=== PATIENT | male | born 1950 | race Caucasian/White ===

== ENCOUNTER 2023-05-15 09:39 | Inpatient (IN) | payer OTHER, SELFPAY ==
[2023-05-14] VITALS (29 sets, daily range): BP systolic 71–125; BP diastolic 38–87; BMI 25.5; BMI 28.5
[2023-05-14] MEDS: NORMOSOL-R 1000 IV (08:23)
--- NOTE | 2023-05-14 11:11 | W.IMMPOSTOP ---
Surgical Immed Post Op Note
-
Primary Surgeon: Hilton
Pre-op Diagnosis: BPH with severe bladder distension and urinary retention; bacterial prostatitis
Post-op Diagnosis: BPH with severe bladder distension and urinary retention; bacterial prostatitis
Procedure Performed: TURP
Anesthesia Type: gen
Specimen / Cultures: prostate chips
Estimated Blood Loss: 57 ml
Complications: hemodynamically unstable during case --> cardiology and hospitalist consultations in PACU; will send to ICU after PACU
Operative Findings: trilobar BPH with distended urinary bladder
[2023-05-14] MEDS: ADRENALIN 250 IV (11:13)
[2023-05-14] MEDS: ZOFRAN 4 MG IV (11:27)
[2023-05-14 11:28] LABS: Hematocrit 31.3 % (39.0-52.0); Hemoglobin 10.7 g/dL (13.0-18.0)
[2023-05-14 11:56] LABS: ALT (SGPT) 75 U/L (0-50); AST (SGOT) 125 U/L (17-59); Albumin 2.5 g/dl (3.5-5.0); Alkaline Phosphatase 108 U/L (38-126); Blood Urea Nitrogen 13 mg/dl (9-20); Calcium 7.5 mg/dl (8.4-10.2); Carbon Dioxide 14 mmol/L (22-30); Chloride 114 mmol/L (98-107); Estimated Creatinine Clearance 94 ml/min; Glucose 110 mg/dl (70-99); Sodium 140 mmol/L (135-145); Total Bilirubin 1.6 mg/dl (0.2-1.3); Total Protein 4.8 g/dl (6.3-8.2); eGFR > 60.00
--- NOTE | 2023-05-14 12:04 | CON.CAR ---
Addendum entered and electronically signed by Estiven Epps MD 05/14/23 12:59:
I saw and examined the patient.
The RETAIL DIRECTOR's note was reviewed and I agree with the note.
Comment: 73M who developed persistent hypotension during TURP. This did not resolve with epinephrine and IVF. Seems like shock.
- The differential diagnosis for shock is broad (distributive, cardiogenic, hypovolemic, obstructive, etc.)
- The patient required early and significant amounts of epinephrine & IVF despite a normal heart. I will update LVEF to be sure my assumption of normal heart is accurate. PPM checked and is normal
- The clinical picture is not consistent with cardiogenic shock. (I can explain the CXR due to the acute volume challenge of IVF)
- I would search for the cause of his shock - septic, hypovolemic, obstructive/PE - and not assume it is cardiogenic
Original Note:
Consultation
Consultation Request
Date/Time Consultation Requested: 05/14/23 1107
Date/Time Consultation Performed: 05/14/23 1206
Requesting Provider: Dr. Canela
Performing Provider: Amara JASON for Dr. Epps
Reason for Consultation: CHF
Medical History
-
Chief Complaint: BPH s/p TURP
History of Present Illness:
73 y/o male with CAD with hx stenting, permanent AFIB on Eliquis (held), DM, HFpEF, anemia, pacemaker with BPH who is now s/p TURP. Hypotension noted and he is now requiring epi drip. Wee are consulted to evaluate for cardiac cause. He denies any CP
or SOB, and is in no distress at the time of my assessment.
Past Medical History
Past Medical History: Arrhythmias (AFIB), CAD, CHF and Other (pacemaker)
Social History
Tobacco: Non-Smoker
Family History
Family History: Reviewed & Not Pertinent
Allergies / Home Medications
Allergy/AdvReac Type Severity Reaction Status Date / Time
No Known Allergies Allergy Verified 05/14/23 08:10
Medication Instructions Recorded Confirmed Type
apixaban 5 mg tablet (Eliquis) 5 mg PO BID Blood Clot 08/30/21 05/14/23 History
Prevention/Tx
diltiazem HCl 120 mg tablet 120 mg PO DAILY Heart 08/30/21 05/14/23 History
(Cardizem) Disease/Condition
cefdinir 300 mg capsule 300 mg PO BID #14 caps 04/29/23 05/14/23 Rx
omega 5-ett-gnq-fish oil 1,200 mg 1 cap PO DAILY 05/09/23 05/14/23 History
(144 mg-216 mg) capsule (Fish Oil)
finasteride 5 mg tablet 5 mg PO DAILY #90 tabs 05/14/23 Rx
tamsulosin 0.4 mg capsule 0.4 mg PO HS #90 caps 05/14/23 Rx
Review of Systems
-
History Source: Patient and Other (and nursing and chart)
All other systems: Negative unless noted (patient denies any symptoms, recovering from anesthesia)
Physical Exam
Vital Signs
Temp Pulse Resp BP Pulse Ox
96.8 F L 69 14 115/55 98
05/14/23 11:03 05/14/23 11:35 05/14/23 11:35 05/14/23 11:35 05/14/23 11:35
Lab Results
05/14/23 11:20
05/14/23 11:20
Physical Exam
General: Well Developed, Well Nourished and No Apparent Distress
HEENT: Normocephalic and Anicteric
Respiratory: Crackles (mild bases)
Cardiac: Regular Rhythm
Breast: Deferred by me
GI: Soft and Non Distended
Musculoskeletal: No Edema
Neuro: Awake, Alert and Other (recovering from anesthesia, but wakes up and follows commands and answers simple questions)
Psych: Calm
Impression / Plan
-
BPH, severe bladder distension and retention, bacterial prostatitis:
-s/p TURP 05/14/23; per urology
-hypotension as below
Hypotension:
-post-op
-requiring epi drip, which requires intensive monitoring for toxicity
-check echo (follow-up study)
-recommend evaluation for non-cardiac causes
Hypokalemia:
-being replaced, follow closely
Pacemaker:
-device checked and functioning appropriately per device rep, 5 months on battery- monitor closely as OP
Permanent AFIB:
-stable, rate-controlled
-on OAC as OP, currently on hold
CAD with history of stenting:
-stable without CP
HFpEF: chronic, stable
-recent echo as below- follow-up study today
Data Reviewed
-
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
Radiology: Report Reviewed by me (CXR: Low lung volumes. Pulmonary vascularity at least top normal. No pneumothorax.)
Medical Tests (Nuc Med, Echo etc): Report Reviewed by me (echo 02/07/23: Left ventricular ejection fraction is 65-70%. Normal regional wall motion. Increased right ventricular wall thickness. Normal right ventricular size and function. Moderately
dilated left atrium. Moderately dilated right atrium. Mild aortic regurgitation. Mild to moderate TR)
Labs: Labs Reviewed by me
[2023-05-14 12:18] LABS: Troponin I 0.017 ng/ml
[2023-05-14] MEDS: KCL 270 MEQ IV (12:30)
--- NOTE | 2023-05-14 12:36 | PTCARENOTE ---
Addendum [id number] Rec'd patient to PACU BP hypotensive, left wrist A-line placed in PACU by anesthesia and epi drip started as ordered. Evaluated by cardiology in PACU, bedside EKG/labs/CXR all obtained in PACU as ordered. Patient + dry heaves with
small amount secretions suctioned orally via yankeur, improved with zofran administration. Patient was transferred to ICU, Bp remains stable.
[2023-05-14 13:05] LABS: NT-proBNP 1380 pg/ml
--- NOTE | 2023-05-14 13:21 | CON.INTV ---
Addendum entered and electronically signed by Isak Lopez MD 05/14/23 14:01:
In further discussion with the patient, patient has chronic diarrhea.
Yesterday he had 5-6 bowel movements. Today he already has 2 bowel movement.
With non-anion gap metabolic acidosis and hypokalemia, suspect patient is volume depleted.
Will replete potassium and start bicarbonate drip at 125 cc/h.
Will continue to monitor closely.
Magnesium is pending.
Hold all antihypertensive.
Original Note:
Consultation
Consultation Request
Date/Time Consultation Requested: 05/14/2023
Date/Time Consultation Performed: 05/14/2023
Requesting Provider: Dr. Canela
Performing Provider: Dr. Isak Juarez
Reason for Consultation: Hypotension/hypokalemia
Medical History
-
History of Present Illness:
73-year-old man was admitted for TURP, developed persistent hypotension. Required fluid resuscitation as well as some low-dose epinephrine.
Upon arrival to the ICU, patient retching, nauseous. Alert and cooperative. Following commands. Denies any chest pain or abdominal pain.
Laboratory testing with acidosis and significant hypokalemia.
Cardiology evaluated the patient, pacemaker looked okay. Repeat echocardiogram will be performed. Does not believe this cardiogenic shock.
Chest x-ray no acute abnormalities.
Patient was found in his usual state of health prior admission earlier today.
Hemoglobin is a stable compared to prior.
There is reports of significant blood loss in the operating room.
CBI currently appears clear.
EKG: Paced with premature ventricular complexes.
Past Medical History
Past Medical History: Other
Social History
Tobacco: Non-smoker
Alcohol: None
Drug: None
Family History
Family History: Reviewed & Not Pertinent
Allergies / Home Medications
Allergies
Allergy/AdvReac Type Severity Reaction Status Date / Time
No Known Allergies Allergy Verified 05/14/23 08:10
Home Medications
Medication Instructions Recorded Confirmed Last Taken Type
apixaban 5 mg tablet (Eliquis) 5 mg PO BID Blood Clot 08/30/21 05/14/23 05/11/23 History
Prevention/Tx
diltiazem HCl 120 mg tablet 120 mg PO DAILY Heart 08/30/21 05/14/23 05/13/23 08:00 History
(Cardizem) Disease/Condition
cefdinir 300 mg capsule 300 mg PO BID #14 caps 04/29/23 05/14/23 05/13/23 20:00 Rx
omega 1-bon-qzo-fish oil 1,200 mg 1 cap PO DAILY 05/09/23 05/14/23 05/11/23 History
(144 mg-216 mg) capsule (Fish Oil)
finasteride 5 mg tablet 5 mg PO DAILY #90 tabs 05/14/23 Unknown Rx
tamsulosin 0.4 mg capsule 0.4 mg PO HS #90 caps 05/14/23 Unknown Rx
Review of Systems
-
History Source: Patient
All other systems: Negative unless noted
Vitals / Labs / Diagnostic Testing
Vital Signs
Temp Pulse Resp BP Pulse Ox
97.3 F 69 14 115/55 98
05/14/23 11:43 05/14/23 11:35 05/14/23 11:35 05/14/23 11:35 05/14/23 11:35
Diagnostic Testing:
Physical Exam
-
HEENT: Normocephalic
Cardiovascular: S1/S2 and Rub (n)
Respiratory: Clear and Non-Labored Respirations
GI: Soft and Non Distended
Neurology: Awake, Alert and AO x 3
Skin: Other ( no cyanosis)
General: Respiratory Distress (Nauseous/retching)
Assessment
-
Shock: Undifferentiated.
Hypovolemic possibility
So far no clear etiology.
Neg trops.
Status post TURP
Anemia-stable since prior admission in March
Non-anion gap metabolic acidosis
Hypokalemia
Abnormal LFT ? etiology
Conditions present prior admission:
BPH
Coronary artery disease status post stents
History of permanent pacemaker
Chronic diarrhea x 2 years
Paroxysmal atrial fibrillation on Eliquis/Cardizem
History of cholecystectomy
History of recurrent pancreatitis
Complex lobulated cyst with calcification arising from the left kidney. 5.5 x 5.5 cm
Left hemidiaphragm elevation
Postinflammatory scarring of the lower lobes on CT abdomen pelvis 04/27/2023
Assessment and plan:
Postoperative shock: On low-dose epinephrine. Status post IV fluid resuscitation in the emergency room.
Patient did receive ceftriaxone: No documented allergies to beta-lactam's. There is no rash.
-
Hemoglobin is stable compared to admission.
Cardiology evaluated the patient: No evidence for cardiogenic etiology.
Chest x-ray is clear.
Obtain lactic level
Hold antihypertensive
Check lactic acid
-
Will correct potassium first and then start bicarbonate drip at 125 cc an hour-KCl ongoing.
Repeat labs at 3 PM.
Repeat H&H at 3 PM
Wait for echocardiogram to evaluate for RV-patient is on anticoagulation in the outpatient setting until this procedure.
-
Nausea/vomiting: Continue Zofran as needed
Given hypokalemia, will try to limit QT prolonging agents.
-
Check cortisol level
? Adrenal mass on the left.
-
Hold anticoagulation for now until H&H is established stable.
SCDs for DVT prophylaxis.
Discussed with cardiology and primary team.
-
-
Critical care statement: A total of 38 minutes of critical care time was provided for this patient today. This includes management of unstable vital signs, evaluation of the patient at bedside, reviewing the patient's pertinent medical records
including ventilator settings, arterial blood gases, radiographs, microbiology, laboratory evaluations and discussion with primary team, critical care nursing, and respiratory therapy.
[2023-05-14 14:05] LABS: Magnesium 1.7 mg/dl (1.6-2.3)
--- NOTE | 2023-05-14 15:19 | HPS.HSE ---
Addendum entered and electronically signed by Ross Jung MD 07/10/23 16:54:
Physical Exam
-
HEENT: Normocephalic
Cardiovascular: S1/S2 and Rub (n)
Respiratory: Clear and Non-Labored Respirations
GI: Soft and Non Distended
Neurology: Awake, Alert and AO x 3
Skin: Other ( no cyanosis)
General: Respiratory Distress (Nauseous/retching)
Addendum entered and electronically signed by Ross Jung MD 07/08/23 16:41:
Allergies
Allergy/AdvReac Type Severity Reaction Status Date / Time
No Known Allergies Allergy Verified 05/14/23 08:10
Home Medications
apixaban 5 mg tablet (Eliquis) 5 mg PO BID Blood Clot Prevention/Tx 08/30/21
diltiazem HCl 120 mg tablet (Cardizem) 120 mg PO DAILY Heart Disease/Condition 08/30/21
cefdinir 300 mg capsule 300 mg PO BID #14 caps 04/29/23
omega 6-dyt-ywc-fish oil 1,200 mg (144 mg-216 mg) capsule (Fish Oil) 1 cap PO DAILY Supplement 05/09/23
finasteride 5 mg tablet 5 mg PO DAILY #90 tabs 05/14/23
tamsulosin 0.4 mg capsule 0.4 mg PO HS #90 caps 05/14/23
ferrous sulfate 325 mg (65 mg iron) tablet (FeroSul) 325 mg PO DAILY #30 tabs 05/21/23
Original Note:
Family Physician
-
Family Physician: NOT KNOW UNKNOWN - PT DOES
Chief Complaint
-
Hypotension
History of Present Illness
73-year-old male admitted for TURP and subsequently developed hypotension requiring vasopressors. Of note patient has had frequent bouts of diarrhea with 5-6 bowel movements yesterday and 2 bowel movements today. Patient required norepinephrine to
maintain blood pressure postop. No overnight events intraoperatively, although required pressors throughout the procedure. Possible significant blood loss in the OR. CBI currently prescribed. Patient lethargic although mental status intact.
Labs notable for acidosis, and hypokalemia. Cardiology evaluated patient, no events on pacemaker.
Medical History
Past Medical History
Past Medical History: Reports Other (as per HPI)
Past Surgical History: Reports Other (N/A)
Social History
Tobacco: Non-smoker
Alcohol: None
Drug: None
Family History
Family History: Not pertinent
Allergies / Home Medications
Allergies reflects when Allergies were last updated in [facility].
Home Medications with original date entered in [facility]
Allergy/Medication List:
Allergies
Allergy/AdvReac Type Severity Reaction Status Date / Time
No Known Allergies Allergy Verified 04/27/23 07:16
Home Medications
apixaban 5 mg tablet (Eliquis) 5 mg PO BID 08/30/21
aspirin 81 mg tablet,delayed release 81 mg PO DAILY 08/30/21
cholecalciferol (vitamin D3) 50 mcg (2,000 unit) tablet 2,000 units PO DAILY 08/30/21
cyanocobalamin (vitamin B-12) 2,500 mcg tablet 2,500 mcg PO DAILY 08/30/21
diltiazem HCl 120 mg tablet (Cardizem) 120 mg PO DAILY 08/30/21
furosemide 20 mg tablet 20 mg PO DAILY 08/30/21
rosuvastatin 5 mg tablet 5 mg PO QPM 08/30/21
hydrocodone 5 mg-acetaminophen 325 mg tablet 1 - 2 tab PO Q4HPRN PRN Mod-severe pain 7 days #30 tabs 09/05/21
cefdinir 300 mg capsule 300 mg PO BID #13 caps 04/22/23
rivaroxaban 20 mg tablet (Xarelto) mg 04/27/23
sildenafil 100 mg tablet 100 mg PO PRN PRN ED 04/27/23
vibegron 75 mg tablet (Gemtesa) 75 mg PO DAILY overactive bladder 04/27/23
Review of Systems
-
A 12 point ROS was completed and negative except as noted: Yes
Physical Exam
Vital Signs
Vital Signs
Temp Pulse Resp BP Pulse Ox
97.3 F 60 20 119/60 99
05/14/23 11:43 05/14/23 14:45 05/14/23 14:45 05/14/23 14:00 05/14/23 14:45
Physical Exam
General: Other (.)
Laboratory Results
-
Laboratory Results
Total Bilirubin 1.6 mg/dl (0.2-1.3) H 05/14/23 11:20
AST 125 U/L (17-59) H 05/14/23 11:20
ALT 75 U/L (0-50) H 05/14/23 11:20
Alkaline Phosphatase 108 U/L (38-126) 05/14/23 11:20
Troponin I 0.017 ng/ml 05/14/23 11:20
Data Reviewed
-
Diagnostic Radiology: Image Personally Visualized and interpreted and Report Reviewed by me
Lab Data: Labs Reviewed by me
Impression/Plan
-
IMPRESSION:
73-year-old male presents status post TURP found to be mildly hypoxic, hypertensive postoperatively. Requiring low-dose pressors. Requiring low-dose pressors.
PLAN:
#Shock, undifferentiated
� Unclear if hypovolemic due to volume blood loss, less likely cardiac or infectious
� Can continue antibiotics as per urology
� Volume resuscitation, bicarbonate bolus now
� Wean pressors as tolerated
� MAP goal greater than 65
� Trend CBC, maintain hemoglobin goal greater than 7
� Follow-up lactate
� Hold antihypertensives
� Follow-up echo
#Nausea/vomiting
� Zofran
#Hypokalemia
Monitor and replete
#Transaminitis
� may be related to shock
-ctm with resuscitation
#Renal mass on left
-Cortisol level
#Permanent atrial fibrillation
� Hold Eliquis
� Continue Cardizem
#CAD
� Status post stenting
� Stable without chest pain
#HFpEF, chronic
� Repeat echo
#BPH
� Hold tamsulosin for now
#DVT prophylaxis
SCDs
[2023-05-14] MEDS: SODIUM BICARBONATE 1150 MEQ IV (16:50)
[2023-05-14 17:52] LABS: Hematocrit 30.7 % (39.0-52.0); Hemoglobin 10.3 g/dL (13.0-18.0); Mean Corp Hgb Conc. 33.6 g/dL (33.0-37.0); Mean Corpuscular Hgb 32.2 pg (27.0-31.0); Mean Corpuscular Volume 95.9 fL (80.0-94.0); Mean Platelet Volume 10.7 fL (7.4-10.4); Platelet Count 160 10^3/uL (130-400); Red Cell Dist. Width 14.6 % (11.5-14.5)
[2023-05-14 18:02] LABS: Blood Urea Nitrogen 16 mg/dl (9-20); Carbon Dioxide 14 mmol/L (22-30); Chloride 112 mmol/L (98-107); Estimated Creatinine Clearance 94 ml/min; Glucose 248 mg/dl (70-99); Magnesium 1.7 mg/dl (1.6-2.3); Potassium 3.7 mmol/L (3.5-5.1); Sodium 138 mmol/L (135-145); eGFR > 60.00
[2023-05-14 18:30] LABS: Cortisol, Random 31.9 ug/dl
--- NOTE | 2023-05-14 18:45 | PTCARENOTE ---
Patient received from PACU at 1200 with assessment as noted. Continues alert and oriented with flat but cooperative affect. 100% V-paced on monitor. Hypothermic upon arrival with a rectal temp of 93.3. aware. Ismael hugger placed for 1.5 hr
and d/c'd for an oral temp of 97.5. Epi gtt titrated between 1-3 mcg to maintain MAP's >65. Lungs with scattered fine crackles 1/3 up bilaterally. Sao2 97% on 2lnc. Retched several times since arrival with no output. Food held but able to tolerate
sips of water. No bowel movement since arrival. CBI with punch colored output with no clots noted. Family into visit and updated to patient condition.
[2023-05-14] MEDS: OMNICEF 300 MG PO (19:13)
[2023-05-14 20:45] LABS: Troponin I 0.119 ng/ml
--- NOTE | 2023-05-14 21:21 | PTCARENOTE ---
Assumed care of patient from previous RN at shift change. Patient alert and oriented. ZUNI. Patient states hx of neuropathy in b/l hands and feet. Glucose 248 on lab work. Orders for A1c, bedside glucose monitoring and sliding scale coverage placed.
100% vpaced on tele monitor. POX 97-99% on 2L nc. Fine crackles auscultated in b/l bases. Denies dyspnea. +BS in all quadrants. No BMs. Occasional nausea. Keeping patient on clears. CBI infusing wide open. Output punch colored. Vitals stable. Epi
gtt infusing at 3 mcg/min for MAP >65. Left radial a-line leveled and zeroed. Call triana within reach.
[2023-05-14 21:50] LABS: Glucose - Point of Care 244 mg/dl (70-99)
[2023-05-15] VITALS (34 sets, daily range): BP systolic 69–118; BP diastolic 41–69; BMI 28.9
--- NOTE | 2023-05-15 00:30 | PTCARENOTE ---
Systems reviewed at 0000, no changes. CBI rate decreased. Urine output blood tinged.
--- NOTE | 2023-05-15 05:17 | PTCARENOTE ---
Epi gtt turned off at 0500. Vitals stable. CBI irrigated x2 overnight. Small amount of blood clots obtained. CBI running wide open at current time.
[2023-05-15 06:04] LABS: % Immature Granulocytes 0.6 % (0-0.5); % Lymphocytes 3.3 % (20.5-51.1); % Monocytes 6.9 % (1.7-9.3); % Neutrophils 89.2 % (42.2-75.2); Absolute Immature Granulocytes 0.1 10^3/uL (0-0.05); Absolute Lymphocytes 0.3 10^3/uL (1.2-3.4); Absolute Monocytes 0.7 10^3/uL (0.1-0.6); Absolute Neutrophils 8.8 10^3/uL (1.4-6.5); Hematocrit 23.8 % (39.0-52.0); Mean Corp Hgb Conc. 34.5 g/dL (33.0-37.0); Mean Corpuscular Hgb 31.4 pg (27.0-31.0); Mean Corpuscular Volume 91.2 fL (80.0-94.0); Mean Platelet Volume 11.1 fL (7.4-10.4); Nucleated Red Blood Cells % 0 % (-); Platelet Count 125 10^3/uL (130-400); Red Blood Cell Count 2.61 10^6/uL (4.70-6.10); Red Cell Dist. Width 14.6 % (11.5-14.5); White Blood Cell Count 9.9 10^3/uL (4.8-10.8)
[2023-05-15 06:07] LABS: ALT (SGPT) 61 U/L (0-50); AST (SGOT) 62 U/L (17-59); Albumin 2.5 g/dl (3.5-5.0); Alkaline Phosphatase 57 U/L (38-126); Blood Urea Nitrogen 17 mg/dl (9-20); Calcium 7.9 mg/dl (8.4-10.2); Carbon Dioxide 16 mmol/L (22-30); Chloride 107 mmol/L (98-107); Estimated Creatinine Clearance 94 ml/min; Glucose 209 mg/dl (70-99); Potassium 4.7 mmol/L (3.5-5.1); Sodium 135 mmol/L (135-145); Total Bilirubin 1.1 mg/dl (0.2-1.3); Total Protein 4.9 g/dl (6.3-8.2); eGFR > 60.00
[2023-05-15 06:15] LABS: Hemoglobin 8.2 g/dL (13.0-18.0)
--- NOTE | 2023-05-15 06:24 | W.PN.URO.CBU ---
Today's Communication / Plan
-
maintain CBI
medical management team's effort are appreciated
Assessment / Plan
-
clinically improving
Diagnosis
-
Date of Service: May 15, 2023
-
Patient Diagnosis:
Prostate Enlargement with Sever Bladder Distension and UTI\\
s/p TURP 05/14 -- intraoperative hypotension, apparently due to fluid-electrolyte imbalances
Subjective
-
feels better
eager for breakfast
Objective
-
Vital Signs
Temp Pulse Resp BP Pulse Ox
98.0 F 60 16 108/54 100
05/15/23 03:35 05/15/23 05:00 05/15/23 05:00 05/15/23 04:00 05/15/23 05:00
Intake and Output
05/13/23 05/14/23 05/15/23
06:59 06:59 06:59
Intake Total 2880.8 / 2880.8
Output Total 2550 / 2550
Balance 330.8 / 330.8
Intake:
Oral fluids 1440 / 1440
IV fluids (Total) 1440.8 / 1440.8
D5w 1,000 ml @ 125 mls/hr IV . 1000 / 1000
Q9H12M CHUY with Sodium
Bicarbonate 150 Meq Rx#:
[id number]
Epi 150.8 / 150.8
K-rider 270.0 / 270.0
Normosol 20 / 20
Output:
True Urine Output from CBI 2550 / 2550
Laboratory Results
05/15/23 05:25
05/15/23 05:25
required hand-irrigation of Deras overnight
Physical Exam
-
General - well developed, well nourished, no acute distress
Abdomen - soft, non-tender, positive bowel sounds, no distention
Genitalia - hand-irrigated -- few old clots extracted; CBI outflow is pink
[2023-05-15 06:42] LABS: Magnesium 1.7 mg/dl (1.6-2.3)
[2023-05-15 07:44] LABS: Glucose - Point of Care 144 mg/dl (70-99)
[2023-05-15] MEDS: OMNICEF 300 MG PO ×2 (08:06→19:28)
[2023-05-15 10:37] LABS: Glycohemoglobin (HgbA1c) 4.8 % (4.0-5.6)
[2023-05-15] MEDS: LR 500 IV ×2 (11:02→19:27)
[2023-05-15 11:54] LABS: Glucose - Point of Care 113 mg/dl (70-99)
--- NOTE | 2023-05-15 12:35 | W.PN.CD ---
Today's Communication / Plan
-
Patient is off pressors. Currently hemodynamically stable.
Keep I's and O's positive or even. Monitor
Diarrhea. Patient has issues with chronic diarrhea and weight loss and felt he had increased diarrhea over the last month. Continue to follow-up with GI
Postoperative care as directed by urology.
Monitor hemoglobin.
Impression / Plan
-
BPH, severe bladder distension and retention, bacterial prostatitis:
-s/p TURP 05/14/23; per urology
Hypotension:
-post-op. Initially given epi. Patient ultimately suspected to be volume depleted. Chronic diarrhea with increase over the last month then surgery and some blood loss.
Echocardiogram with hyperdynamic left ventricular function. Appears patient responded to volume.
-Stable off pressors.
-Continue to replace volume if patient has significant diarrhea output.
Postoperative anemia. Hemoglobin down to 8.2 some of this may be related to dilution and volume resuscitation. l. Starting hemoglobin 10.7. Continue to monitor.
Pacemaker:
-device checked and functioning appropriately per device rep, 5 months on battery- monitor closely as OP
Permanent AFIB:
-stable, rate-controlled
-Anticoagulation on hold due to recent surgery. Monitor hemoglobin eventual restart of anticoagulation when safe from a postoperative standpoint
CAD with history of stenting:
-stable without CP
HFpEF: chronic, stable
Physical Exam
Vital Signs/Labs
Vital Signs
Temp Pulse Resp BP Pulse Ox
97.9 F 60 13 97/61 96
05/15/23 11:27 05/15/23 11:30 05/15/23 11:30 05/15/23 11:00 05/15/23 12:00
05/14/23 05/15/23 05/16/23
06:59 06:59 06:59
Actual Weight 78.7 kg
05/15/23 05:25
05/15/23 05:25
Magnesium 1.7 mg/dl (1.6-2.3) 05/15/23 05:25
05/14/23
11:20
[id number] Pept 1380
LAB Results
05/14/23 05/14/23 05/14/23
11:20 12:15 20:00
Troponin I 0.017 Cancelled 0.119 H*
05/15/23
05:25
Troponin I 0.250 H*
Physical Exam
Constitutional: No acute distress
Cardiovascular: Rhythm & rate is regular
Respiratory: Respiratory effort normal
GI: Soft
Neuro/Psych: Alert
Data Reviewed
-
Date of Service: May 15, 2023
Medical Decision Making: Reviewed Test Results
Echo: Report Reviewed by me
Medical Tests (PFT, Pathology etc): Report Reviewed by me
Labs: Labs Reviewed by me
--- NOTE | 2023-05-15 12:56 | CM ---
Addendum entered by Praveen Thompson 05/15/23 13:27:
Per spouse, pt has a scooter and uses as needed.
Original Note:
CM following re: discharge planning.
Discussed in rounds, reviewed pt's chart, met with pt. pt's spouse and stepson at bedside. Pt is upgraded to inpatient level of carte. IMM reviewed, placed on chart, pt has a copy.
Pt is a 73 year old male, admitted with primary dx of BPH, severe bladder distension and retention, bacterial prostatitis, s/p TURP 05/14/23; per urology.
Pt reports he was born and grew up in [place], emig[place] [facility] with family 47 years ago and resided in [facility]. pt reports he first spouse, had 3 children and they : youngest son in [place] in very young age, son
from [place] 5 years ago at the age of 45 and daughter from [place] 4 years ago. Pt reports his sister and brother from [place] in their 60th. Emotional support offered and provided. Pt went to tears, shows me pictures of his children, their graves. Pt
reports that 7 years ago he a women who was born in [place] and grew up in [place] and she and her 23 year old son lives with the pt in an apartment, 1st floor, 1 steps to enter. Pt described himself as independent in all areas [employer], uses a
cane as needed. No VN or SNF history. 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 Pt expressed his desire to return back home at discharge with family support.
PCP: Dr. Avalos
Pharmacy: [facility].
D/c plan: home with anticipated no needs. Family to transport at discharge.
CM will follow with discharge plan updates as hospitalization progresses
--- NOTE | 2023-05-15 13:18 | W.PN.INTV ---
Today's Communication / Plan
Recommendations
Discontinue epinephrine
Discontinue arterial line
Repeat labs later
LR 500 bolus
Increase activity as able
Advance diet
Hold antihypertensives
Assessment
-
Shock: Undifferentiated.
Hypovolemic possibility
So far no clear etiology.
Neg trops.
Status post TURP
Anemia-stable since prior admission in March
Non-anion gap metabolic acidosis
Hypokalemia
Abnormal LFT ? etiology
Conditions present prior admission:
BPH
Coronary artery disease status post stents
History of permanent pacemaker
Chronic diarrhea x 2 years
Paroxysmal atrial fibrillation on Eliquis/Cardizem
History of cholecystectomy
History of recurrent pancreatitis
Complex lobulated cyst with calcification arising from the left kidney. 5.5 x 5.5 cm
Left hemidiaphragm elevation
Postinflammatory scarring of the lower lobes on CT abdomen pelvis 04/27/2023
Assessment and plan:
Postoperative shock: On low-dose epinephrine.
Patient did receive ceftriaxone: No documented allergies to beta-lactam's. There is no rash.
Patient did receive dexamethasone in the operating room for nausea.
Normal random cortisol
Troponin leak noted. Cardiology evaluated the patient. Suspect noncardiac in etiology.
-
He is clinically improved.
Suspect shock was related to volume depletion, has chronic diarrhea, acute blood loss during procedure hemoglobin dropped 2 g anesthesia.
Received IV fluids rotation with improvement
Epinephrine discontinued 05/15/2023 per
Discontinue arterial line
Continue to observe closely
Continues to have nongap metabolic acidosis: Suspect continues to be dehydrated. Echocardiogram showed underfilled left ventricle.
Will give additional 500 mL bolus of LR.
Encourage oral intake.
Repeat laboratories later.
Out of bed if possible.
-
Will hold antihypertensive for now.
-
Hopefully can discontinue CBI
On antibiotics per urology
-
Hypokalemia resolved.
Repeat BMP later today.
-
? Adrenal mass on the left. Follow with urology.
-
Hold anticoagulation for now until H&H is established stable. Defer to primary team.
SCDs for DVT prophylaxis.
Discussed with cardiology and primary team.
-
-
Critical care statement: A total of 31 minutes of critical care time was provided for this patient today. This includes management of unstable vital signs, evaluation of the patient at bedside, reviewing the patient's pertinent medical records
including ventilator settings, arterial blood gases, radiographs, microbiology, laboratory evaluations and discussion with primary team, critical care nursing, and respiratory therapy.
Subjective Dataa
Subjective Data
Date of Service:
Date of Service: May 15, 2023
Chief Complaint: Smudger Follow Up (Shock-)
Subjective:
Patient is clinically improved.
Hemodynamics are better
Denies abdominal pain.
Nausea vomiting resolved
Tolerating diet this morning.
Review of Systems
General: Fever (n)
Cardiopulmonary: Dyspnea (n), Cough (n) and Sputum Production (n)
GI: Abdominal Pain (n), Nausea (n) and Vomiting (n)
Neuro: Headache (n)
Objective Data
Data Reviewed
Vital Signs / I&O / Oxygen:
Vital Signs
Temp Pulse Resp BP Pulse Ox
97.9 F 60 13 97/61 96
05/15/23 11:27 05/15/23 11:30 05/15/23 11:30 05/15/23 11:00 05/15/23 12:00
Intake and Output
05/14/23 05/15/23 05/16/23
06:59 06:59 06:59
Intake Total 2880.8 / 2880.8 987.6 / 987.6
Output Total 5500 / 5500 1200 / 1200
Balance -2619.2 / -2619.2 -212.4 / -212.4
SaO2 96
Nasal Cannula flow liters per 2
minute
Physical Exam
General: Respiratory Distress (n) and Comfortable
HEENT: Normocephalic
Cardiovascular: S1-S2 and Regular Rhythm
Respiratory: Clear and Non-Labored Respirations
GI: Soft and Non Distended
Neurology: Awake and Alert
Skin: Warm
Labs/Micro/Reports
Lab Data
05/15/23 05:25
05/15/23 05:25
--- NOTE | 2023-05-15 15:23 | W.PN.HOSP.TC ---
Today's Communication/Plan
-
LR bolus
Off pressors since 9am, hopeful to maintain off indefinitely; Maintain MAP>65
Cont abx
Assessment / Plan
Assessment / Plan
Physical Exam
General: Respiratory Distress (n) and Comfortable
HEENT: Normocephalic
Cardiovascular: S1-S2 and Regular Rhythm
Respiratory: Clear and Non-Labored Respirations
GI: Soft and Non Distended
: CBI
Neurology: Awake and Alert
Skin: Warm
73-year-old male presents status post TURP found to be mildly hypoxic, hypertensive postoperatively.� Requiring low-dose pressors.� Requiring low-dose pressors.
PLAN:
#Shock, undifferentiated
-favor hypovolemic due to volume blood loss, diarrhea, NPO
� Can continue antibiotics as per urology
� Volume resuscitation, LR bolus today
-OFF pressors this morning
� MAP goal greater than 65
� Trend CBC, maintain hemoglobin goal greater than 7
� Hold antihypertensives
� Follow-up echo: hyperdynamic, low filling pressures
#Acute Blood Anemia
-monitor
#NAGMA
-2/2 to diarrhea
-s/p bicarb
-volume resuscitation
#Diarrhea
chronic
can see gi outpatient
#Nausea/vomiting
� Zofran
#Hypokalemia
Monitor and replete
#TURP 05/14
-CBI
#Transaminitis
� may be related to shock
-ctm with resuscitation
#Renal mass on left
-Cortisol level
#Permanent atrial fibrillation
� Hold Eliquis
� Continue Cardizem
#CAD
� Status post stenting
� Stable without chest pain
#HFpEF, chronic
� Repeat echo
#BPH
� Hold tamsulosin for now
#DVT prophylaxis
SCDs
Total time spent on today's encounter was 55 minutes which included time spent in counseling the patient/family regarding diagnosis and treatment plan as listed above, goals of care, and symptom management. Case was discussed with nursing staff,
specialists, and care coordinators/case management. All labs and imaging personally reviewed by me. Remainder the time spent in detailed review of previous records, lab data, imaging, and other medical provider documentation.
Anticipated Discharge: > 48 hours
Subjective/Interval History
-
Date of Service: May 15, 2023
off pressors since 9 am
Objective Data
-
Labs:
Laboratory Results
05/15/23 05/15/23
05:25 15:00
WBC 9.9
Hgb 8.2 L D
Hct 23.8 L
Plt Count 125 L D
Sodium 135 Pending
Potassium 4.7 D Pending
Chloride 107 Pending
Carbon Dioxide 16 L Pending
BUN 17 Pending
Creatinine 0.6 L Pending
Glucose 209 H Pending
Calcium 7.9 L Pending
Total Bilirubin 1.1
AST 62 H
ALT 61 H
Alkaline Phosphatase 57
Vital Signs:
Vital Signs
Temp Pulse Resp BP Pulse Ox
97.9 F 60 13 97/61 96
05/15/23 11:27 05/15/23 11:30 05/15/23 11:30 05/15/23 11:00 05/15/23 12:00
I&O
05/14/23 05/15/23 05/16/23
06:59 06:59 06:59
Intake Total 2880.8 / 2880.8 1467.6 / 1467.6
Output Total 5500 / 5500 1600 / 1600
Balance -2619.2 / -2619.2 -132.4 / -132.4
Review of Systems
-
History Source: Patient
All other systems: Not reviewed unless documented
Data Reviewed
-
CT Scan: Image personally visualized and interpreted and Report Reviewed by me
Labs: Labs Reviewed by me
[2023-05-15 15:56] LABS: Blood Urea Nitrogen 15 mg/dl (9-20); Calcium 8.2 mg/dl (8.4-10.2); Carbon Dioxide 23 mmol/L (22-30); Chloride 111 mmol/L (98-107); Estimated Creatinine Clearance 81 ml/min; Glucose 74 mg/dl (70-99); Magnesium 1.7 mg/dl (1.6-2.3); Potassium 4.2 mmol/L (3.5-5.1); Sodium 134 mmol/L (135-145); eGFR > 60.00
--- NOTE | 2023-05-15 17:09 | PTCARENOTE ---
Patient received in AM with assessment as noted. Continues alert, oriented and pleasant. Flat but cooperative affect. CBI has required hand irrigation several times today with minimal clots noted. aware. CBI infusion running wide open
through most of the day and was slowed down slightly to a very fast drip at 1620 with no need to irrigate since. Output pale pink in the AM and mostly clear in the afternoon. V-paced on monitor. Afebrile. Epi gtt d/c'd at 0900 and b/p's continue
slightly hypotensive but stable. A-line d/c'd this afternoon. Lungs CTA. Sao2 97% on room air. Appetite fair. He had 1 brief episode of retching this morning with no output noted. Had a small loose brown stool today. CBI as noted. Family into visit
and updated to patient condition. Will continue to monitor closely.
[2023-05-15] MEDS: NSS 250 IV (22:29)
[2023-05-15] MEDS: LR 1000 IV (23:01)
[2023-05-16] VITALS (47 sets, daily range): BP systolic 82–112; BP diastolic 45–77; BMI 29.3
[2023-05-16 04:41] LABS: Mean Corp Hgb Conc. 33.9 g/dL (33.0-37.0); Mean Corpuscular Hgb 31.5 pg (27.0-31.0); Mean Corpuscular Volume 93.1 fL (80.0-94.0); Red Blood Cell Count 2.03 10^6/uL (4.70-6.10); Red Cell Dist. Width 15.1 % (11.5-14.5); White Blood Cell Count 12.4 10^3/uL (4.8-10.8)
[2023-05-16 04:56] LABS: Hematocrit 18.9 % (39.0-52.0); Hemoglobin 6.4 g/dL (13.0-18.0)
[2023-05-16 05:19] LABS: Mean Platelet Volume 10.8 fL (7.4-10.4); Platelet Count 81 10^3/uL (130-400)
--- NOTE | 2023-05-16 06:00 | W.PN.UPDATE ---
Addendum entered and electronically signed by CASIE Hobbs 05/16/23 06:15:
BMP hemolyzed, repeating HH for accuracy.
Original Note:
Update Note
Progress Note Update
HGB 6.4 = type and screen sent and blood consent completed.
[2023-05-16 06:41] LABS: Hematocrit 22.6 % (39.0-52.0); Hemoglobin 7.7 g/dL (13.0-18.0)
[2023-05-16 06:54] LABS: ALT (SGPT) 45 U/L (0-50); AST (SGOT) 39 U/L (17-59); Albumin 2.4 g/dl (3.5-5.0); Alkaline Phosphatase 75 U/L (38-126); Blood Urea Nitrogen 14 mg/dl (9-20); Carbon Dioxide 24 mmol/L (22-30); Chloride 111 mmol/L (98-107); Estimated Creatinine Clearance 94 ml/min; Glucose 57 mg/dl (70-99); Sodium 134 mmol/L (135-145); Total Bilirubin 1.1 mg/dl (0.2-1.3); Total Protein 4.4 g/dl (6.3-8.2); eGFR > 60.00
[2023-05-16] MEDS: DETROL LA 4 MG PO (07:19)
[2023-05-16] MEDS: OMNICEF 300 MG PO ×2 (07:19→20:42)
--- NOTE | 2023-05-16 08:39 | PTCARENOTE ---
pt aaox3. states some cramping in abd just like when he passed clots before. gotti irrigated no clots noted. spasm med given as ordered. pt refused Colace. [address] small amt blood noted at tip of penis. cbi running wide open.
urine clear pink tinged no clots seen. room air breath sounds clear. pt asking to get out of bed today and sit in a chair. will ask urology if ok. v paced seen on monitor.
--- NOTE | 2023-05-16 09:31 | W.PN.CD ---
Today's Communication / Plan
-
- consider PRBC given anemia/CAD/hypotension
- I will sign off. Please resume apixaban when safe
- call with questions
Impression / Plan
-
Impression: �73M who developed persistent hypotension/shock during TURP. Now imporved with time/volume
Plan:
BPH, severe bladder distension and retention, bacterial prostatitis -s/p TURP 05/14/23; per urology
Hypotension:
- Volume
- consider PRBC given anemia/CAD/hypotension
Postoperative anemia
Pacemaker: device checked and functioning appropriately per device rep, 5 months on battery- monitor closely as OP
Permanent AFIB:
-stable, rate-controlled
-Anticoagulation on hold due to recent surgery.
CAD with history of stenting:
-stable without CP
HFpEF: chronic, stable
Dispo
- I will sign off. Please resume apixaban when safe
- call with questions
Subjective: No CP, palps, or dyspnea
Physical Exam
Vital Signs/Labs
Vital Signs
Temp Pulse Resp BP Pulse Ox
36.8 C 60 15 106/72 96
05/16/23 07:44 05/16/23 09:00 05/16/23 09:00 05/16/23 09:00 05/16/23 08:38
05/15/23 05/16/23 05/17/23
06:59 06:59 06:59
Actual Weight 173 lb 8.061 oz 175 lb 14.862 oz
05/16/23 06:31
05/16/23 06:31
Magnesium 1.7 mg/dl (1.6-2.3) 05/15/23 15:23
05/14/23
11:20
Thi-T-Aotcvxicqjg Pept 1380
LAB Results
05/14/23 05/14/2324
11:20 12:15 20:00
Troponin I 0.017 Cancelled 0.119 H*
05/15/23
05:25
Troponin I 0.250 H*
Physical Exam
Constitutional: No acute distress
EENT: Anicteric and Moist mucous membranes
Cardiovascular: Rhythm & rate is regular, Pedal edema is absent, Systolic murmur absent and Diastolic murmur absent
Respiratory: Respiratory effort normal
GI: Soft and Distention absent
Neuro/Psych: Alert
Data Reviewed
-
Date of Service: May 16, 2023
--- NOTE | 2023-05-16 11:43 | W.PN.INTV ---
Today's Communication / Plan
Recommendations
Monitor H&H
Encourage oral intake
Hopefully can discontinue CBI-wait for urology input
Repeat H&H at noon. If hemoglobin close to 7 then will consider transfusion-defer to primary team.
Transferred to telemetry.
Assessment
-
Shock: Undifferentiated.
Hypovolemic possibility
So far no clear etiology.
Neg trops.
Status post TURP
Anemia-stable since prior admission in March
Non-anion gap metabolic acidosis
Hypokalemia
Abnormal LFT ? etiology
Conditions present prior admission:
BPH
Coronary artery disease status post stents
History of permanent pacemaker
Chronic diarrhea x 2 years
Paroxysmal atrial fibrillation on Eliquis/Cardizem
History of cholecystectomy
History of recurrent pancreatitis
Complex lobulated cyst with calcification arising from the left kidney. 5.5 x 5.5 cm
Left hemidiaphragm elevation
Postinflammatory scarring of the lower lobes on CT abdomen pelvis 04/27/2023
Assessment and plan:
Clinically improved. Epinephrine has been discontinued since yesterday.
Blood pressures remain borderline but in the normal range.
Suspect shock was related to volume depletion, has chronic diarrhea, acute blood loss during procedure hemoglobin dropped 2 g anesthesia.
-
Suspect hypotension
No evidence for acute infection.
Patient did receive ceftriaxone: No documented allergies to beta-lactam's. There is no rash.
Patient did receive dexamethasone in the operating room for nausea.
Normal random cortisol
Troponin leak noted. Cardiology evaluated the patient. Suspect noncardiac in etiology.
-
Status post fluid resuscitation.
Discontinued arterial line
Continue to observe closely, patient is asking to get out of bed.
Metabolic acidosis resolved: Suspect continues to be dehydrated. Echocardiogram showed underfilled left ventricle.
Encourage oral intake.
Out of bed if possible.
-
Will hold antihypertensive for now.
-
Hopefully can discontinue CBI
On antibiotics per urology
-
Anemia, repeat H&H 7.7. Will repeat CBC at noon, if remains under 8 g/dL will consider transfusion. Defer to primary team.
-
? Adrenal mass on the left. Follow with urology.
-
Hold anticoagulation for now until H&H is established stable.
SCDs for DVT prophylaxis.
Discussed with cardiology and primary team.
-
Transfer to telemetry.
Critical care team will sign off. Please call pulmonary if any respiratory issues arise.
Subjective Dataa
Subjective Data
Date of Service:
Date of Service: May 16, 2023
Chief Complaint: Hat Blocker Follow Up (Shock-)
Objective Data
Data Reviewed
Vital Signs / I&O / Oxygen:
Vital Signs
Temp Pulse Resp BP Pulse Ox
98.2 F 60 20 90/54 96
05/16/23 07:44 05/16/23 10:00 05/16/23 10:00 05/16/23 10:00 05/16/23 08:38
Intake and Output
05/15/23 05/16/23 05/17/23
06:59 06:59 06:59
Intake Total 2880.8 / 2880.8 2457.6 / 3937.6 1720 / 1720
Output Total 5900 / 5900 4300 / 4300 700 / 700
Balance -3019.2 / -3019.2 -1842.4 / -362.4 1020 / 1020
SaO2 96
Nasal Cannula flow liters per 2
minute
Physical Exam
General: Respiratory Distress (n) and Comfortable
HEENT: Normocephalic
Cardiovascular: S1-S2 and Regular Rhythm
Respiratory: Clear and Non-Labored Respirations
GI: Soft and Non Distended
Neurology: Awake and Alert
Skin: Warm
Labs/Micro/Reports
Lab Data
05/16/23 06:31
05/16/23 06:31
[2023-05-16 12:22] LABS: % Basophils 0.2 % (0-2); % Eosinophils 0.2 % (0-6); % Immature Granulocytes 0.5 % (0-0.5); % Monocytes 5.1 % (1.7-9.3); Absolute Immature Granulocytes 0.1 10^3/uL (0-0.05); Absolute Lymphocytes 1.1 10^3/uL (1.2-3.4); Absolute Monocytes 0.7 10^3/uL (0.1-0.6); Absolute Neutrophils 11.4 10^3/uL (1.4-6.5); Hematocrit 23.2 % (39.0-52.0); Hemoglobin 7.9 g/dL (13.0-18.0); Mean Corp Hgb Conc. 34.1 g/dL (33.0-37.0); Mean Corpuscular Hgb 31.5 pg (27.0-31.0); Mean Corpuscular Volume 92.4 fL (80.0-94.0); Mean Platelet Volume 10.8 fL (7.4-10.4); Nucleated Red Blood Cells % 0 % (-); Platelet Count 98 10^3/uL (130-400); Red Blood Cell Count 2.51 10^6/uL (4.70-6.10); Red Cell Dist. Width 15.4 % (11.5-14.5); White Blood Cell Count 13.2 10^3/uL (4.8-10.8)
--- NOTE | 2023-05-16 13:06 | VNURNOTE ---
Chart reviewed. Patient is active with [facility]. JOSE referral placed in [facility] under 'saved' status. Will continue to follow hospital course.
--- NOTE | 2023-05-16 14:01 | W.PN.URO.CBU ---
Today's Communication / Plan
-
stop CBI
ambulate
possble discharge tomorrow if medically cleared
Assessment / Plan
-
clinically improving; H&H cesar at last check
Diagnosis
-
Date of Service: May 16, 2023
-
Patient Diagnosis:
Prostate Enlargement with Sever Bladder Distension and UTI\\
s/p TURP 05/14 -- intraoperative hypotension, apparently due to fluid-electrolyte imbalances
Subjective
-
feeling better
Objective
-
Vital Signs
Temp Pulse Resp BP Pulse Ox
98.3 F 60 20 90/54 96
05/16/23 11:45 05/16/23 10:00 05/16/23 10:00 05/16/23 10:00 05/16/23 08:38
Intake and Output
05/15/23 05/16/23 05/17/23
06:59 06:59 06:59
Intake Total 2880.8 / 2880.8 2457.6 / 3937.6 1720 / 1720
Output Total 5900 / 5900 4300 / 4300 700 / 700
Balance -3019.2 / -3019.2 -1842.4 / -362.4 1020 / 1020
Intake:
Oral fluids 1440 / 1440 1200 / 1680 720 / 720
IV fluids (Total) 1440.8 / 1440.8 7.6 / 1007.6 1000 / 1000
D5w 1,000 ml @ 125 mls/hr IV . 1000 / 1000
Q9H12M CHUY with Sodium
Bicarbonate 150 Meq Rx#:
[id number]
Epi 150.8 / 150.8 7.6 / 7.6
K-rider 270.0 / 270.0
Lr 1,000 ml @ 125 mls/hr IV . 1000 / 1000
Q8H CHUY Rx#:[id number]
Normosol
IV piggybacks 1250 / 1250
Output:
True Urine Output from CBI 5900 / 5900 4300 / 4300 700 / 700
Laboratory Results
05/16/23 12:08
05/16/23 06:31
Physical Exam
-
General - well developed, well nourished, no acute distress
Abdomen - soft, non-tender, positive bowel sounds, no distention
Genitalia - Deras -- pale pink outflow w/o clots
--- NOTE | 2023-05-16 14:08 | CM ---
CM following re: discharge planning.
Discussed in rounds, reviewed pt's chart, met with pt. Pt's spouse and pt's stepson at bedside. Per Rounds meeting, pt has been clinically improving and will be downgraded from ICU level of care.
PT did confirm he mostly uses a cane and uses a scooter for a long distance.
PT and OT consults requested from MD.
D/c plan: home with anticipated no needs vs VN if recommended by PT/OT. Spouse to transport at discharge.
CM will follow with discharge plan updates aa hospitalization progresses
--- NOTE | 2023-05-16 14:53 | W.PN.HOSP.TC ---
Today's Communication/Plan
-
Turn Off CBI
Monitor HgB
Assessment / Plan
Assessment / Plan
Physical Exam
General: Respiratory Distress (n) and Comfortable
HEENT: Normocephalic
Cardiovascular: S1-S2 and Regular Rhythm
Respiratory: Clear and Non-Labored Respirations
GI: Soft and Non Distended
: CBI
Neurology: Awake and Alert
Skin: Warm
73-year-old male presents status post TURP found to be mildly hypoxic, hypertensive postoperatively.� Requiring low-dose pressors.� Requiring low-dose pressors.
PLAN:
#Shock, undifferentiated: resolved
-favor hypovolemic due to volume blood loss, diarrhea, NPO
� Can continue antibiotics as per urology
� Volume resuscitation, LR bolus today
-OFF pressors this morning
� MAP goal greater than 65
� Trend CBC, maintain hemoglobin goal greater than 7
� Hold antihypertensives
� Follow-up echo: hyperdynamic, low filling pressures
#Acute Blood Anemia
-monitor
-Transfuse HgB >7
#NAGMA
-2/2 to diarrhea (Chronic)
-s/p bicarb
-volume resuscitation
-resolved
#Diarrhea
chronic
can see gi outpatient
#Nausea/vomiting
� Zofran
#Hypokalemia
Monitor and replete
#TURP 05/14
-Stop CBI
#Transaminitis
� may be related to shock
-ctm with resuscitation
#Renal mass on left
-Cortisol level
#Permanent atrial fibrillation
� Hold Eliquis
� Continue Cardizem
#CAD
� Status post stenting
� Stable without chest pain
#HFpEF, chronic
� Repeat echo
#BPH
� Hold tamsulosin for now
#DVT prophylaxis
SCDs
Total time spent on today's encounter was 55 minutes which included time spent in counseling the patient/family regarding diagnosis and treatment plan as listed above, goals of care, and symptom management. Case was discussed with nursing staff,
specialists, and care coordinators/case management. All labs and imaging personally reviewed by me. Remainder the time spent in detailed review of previous records, lab data, imaging, and other medical provider documentation.
Anticipated Discharge: Within 24 hours
Subjective/Interval History
-
Date of Service: May 16, 2023
Hemodynamically stable, off pressors for 24 hours
Objective Data
-
Labs:
Laboratory Results
05/16/23 05/16/23 05/16/23
04:25 06:31 12:08
WBC 12.4 H 13.2 H
Hgb 6.4 L* D 7.7 L D 7.9 L
Hct 18.9 L* 22.6 L 23.2 L
Plt Count 81 L D 98 L D
Sodium Cancelled 134 L
Potassium Cancelled 4.0
Chloride Cancelled 111 H
Carbon Dioxide Cancelled 24
BUN Cancelled 14
Creatinine Cancelled 0.6 L
Glucose Cancelled 57 L
Calcium Cancelled 8.0 L
Total Bilirubin Cancelled 1.1
AST Cancelled 39
ALT Cancelled 45
Alkaline Phosphatase Cancelled 75
Vital Signs:
Vital Signs
Temp Pulse Resp BP Pulse Ox
98.3 F 60 16 93/45 95
05/16/23 11:45 05/16/23 14:44 05/16/23 14:44 05/16/23 14:44 05/16/23 14:49
I&O
05/15/23 05/16/23 05/17/23
06:59 06:59 06:59
Intake Total 2880.8 / 2880.8 2457.6 / 3937.6 1720 / 1720
Output Total 5900 / 5900 4300 / 4300 1400 / 1400
Balance -3019.2 / -3019.2 -1842.4 / -362.4 320 / 320
Review of Systems
-
History Source: Patient
All other systems: Not reviewed unless documented
Data Reviewed
-
CT Scan: Image personally visualized and interpreted and Report Reviewed by me
Labs: Labs Reviewed by me
--- NOTE | 2023-05-16 16:58 | PTCARENOTE ---
urine has become clear dark pink since cbi turned off. pt states he has not felt any cramping.
[2023-05-17] VITALS (24 sets, daily range): BP systolic 92–130; BP diastolic 59–80; PULSE 61; O2SAT 99; BMI 28.8
--- NOTE | 2023-05-17 08:10 | PTCARENOTE ---
While in report pt c/o bladder pressure and pain. Required irrigation for small micro clots. Urine rust/red colored with small micro clots via #24fr Deras catheter for urologic determination. CBI clamped but still connected. Bilateral protective
catheter flushed and patent. Lungs CTA. +BSX4. Fair appetite. He stated that his brings him food from home. He was informed of the plan of care and that I had wanted to inform urology that he was requiring manual irrigation still. Pt was
infoormed that his Plavix will be restrated when Urology feels it is ok to do so. Safe environment maintained.
[2023-05-17] MEDS: OMNICEF 300 MG PO ×2 (08:18→20:04)
--- NOTE | 2023-05-17 10:46 | PTCARENOTE ---
Dr. Mata aware of the necessity to hand irrigate still and removed micro clots, urine was still blood tinged. CBD connected but clamped. Dr. Mata hand irrigated and removed many larger clots and manipulated the catheter. Catheter care performed
afterwards, CBI unitl 12nn per Dr. Mata. Will TT him at that time. Pt is aware of the plan and the importance of catheter care due to his high risk of infection.
--- NOTE | 2023-05-17 11:01 | W.PN.URO.CBU ---
Today's Communication / Plan
-
Continue CBI
Await Hgb
Assessment / Plan
-
clinically improving; H&H pending
Deras hand irrigated with rcovery of 10 cc of lysed clot
Slow drip CBI resumed
Diagnosis
-
Date of Service: May 17, 2023
-
Patient Diagnosis:
Prostate Enlargement with Severe Bladder Distension and UTI
s/p TURP 05/14 -- intraoperative hypotension, apparently due to fluid-electrolyte imbalances
Subjective
-
Comfortable
Little catheter bother
Objective
-
Vital Signs
Temp Pulse Resp BP Pulse Ox
98.2 F 60 25 113/70 97
05/17/23 07:47 05/17/23 09:00 05/17/23 10:00 05/17/23 10:00 05/17/23 02:00
Intake and Output
05/16/23 05/17/23 05/18/23
06:59 06:59 06:59
Intake Total 2457.6 / 3937.6 1720 / 1720 120 / 120
Output Total 4300 / 4300 3800 / 3800 1100 / 1100
Balance -1842.4 / -362.4 -2080 / -2080 -980 / -980
Intake:
Oral fluids 1200 / 1680 720 / 720 120 / 120
IV fluids (Total) 7.6 / 1007.6 1000 / 1000
Epi 7.6 / 7.6
Lr 1,000 ml @ 125 mls/hr IV . 1000 / 1000
Q8H CHUY Rx#:[id number]
IV piggybacks 1250 / 1250
Output:
Urine, Deras 2400 / 2400 1100 / 1100
True Urine Output from CBI 4300 / 4300 1400 / 1400
Review of Systems
-
Constitutional: No Symptoms
Respiratory: No Symptoms
Cardiac: No Symptoms
Abdomen/GI: No Symptoms
: Bleeding
Neurological: No Symptoms
Physical Exam
-
General - well developed, well nourished, no acute distress
Abdomen - soft, non-tender, no CVAT
Genitalia - normal with Deras draining light red urine
Skin - warm & dry with no rash
Neuro - AOx3, no motor deficits
[2023-05-17 12:13] LABS: Hematocrit 25.4 % (39.0-52.0); Hemoglobin 8.5 g/dL (13.0-18.0); Mean Corp Hgb Conc. 33.5 g/dL (33.0-37.0); Mean Corpuscular Hgb 31.3 pg (27.0-31.0); Mean Corpuscular Volume 93.4 fL (80.0-94.0); Mean Platelet Volume 10.9 fL (7.4-10.4); Platelet Count 100 10^3/uL (130-400); Red Blood Cell Count 2.72 10^6/uL (4.70-6.10); Red Cell Dist. Width 15.2 % (11.5-14.5); White Blood Cell Count 8.9 10^3/uL (4.8-10.8)
[2023-05-17 12:25] LABS: Blood Urea Nitrogen 13 mg/dl (9-20); Calcium 8.3 mg/dl (8.4-10.2); Carbon Dioxide 30 mmol/L (22-30); Chloride 107 mmol/L (98-107); Estimated Creatinine Clearance 81 ml/min; Glucose 81 mg/dl (70-99); Potassium 3.9 mmol/L (3.5-5.1); Sodium 135 mmol/L (135-145); eGFR > 60.00
--- NOTE | 2023-05-17 12:29 | PTCARENOTE ---
Will continue with CBI per Dr. Mata. He is aware of recent Hgb and Platelet results and urine still red w/CBI.
--- NOTE | 2023-05-17 14:46 | W.PN.HOSP.TC ---
Today's Communication/Plan
-
CBI today
holding eliquis
monitor HgB
Assessment / Plan
Assessment / Plan
Physical Exam
General: Respiratory Distress (n) and Comfortable
HEENT: Normocephalic
Cardiovascular: S1-S2 and Regular Rhythm
Respiratory: Clear and Non-Labored Respirations
GI: Soft and Non Distended
: CBI
Neurology: Awake and Alert
Skin: Warm
73-year-old male presents status post TURP found to be mildly hypoxic, hypertensive postoperatively.� Requiring low-dose pressors.� Requiring low-dose pressors.
PLAN:
#Shock, undifferentiated: resolved
-favor hypovolemic due to volume blood loss, diarrhea, NPO
� Can continue antibiotics as per urology
� Volume resuscitation
-OFF pressors this morning
� MAP goal greater than 65
� Trend CBC, maintain hemoglobin goal greater than 7
� Hold antihypertensives
� Follow-up echo: hyperdynamic, low filling pressures
#Acute Blood Anemia
-monitor
-Transfuse HgB >7
� CBI continued for today
#NAGMA
-2/2 to diarrhea (Chronic)
-s/p bicarb
-volume resuscitation
-resolved
#Diarrhea
chronic
can see gi outpatient
#Nausea/vomiting
� Zofran
#Hypokalemia
Monitor and replete
#TURP 05/14
-CBI continued for today
#Transaminitis
� may be related to shock
-ctm with resuscitation
#Renal mass on left
-Cortisol level
#Permanent atrial fibrillation
� Hold Eliquis
� Continue Cardizem
#CAD
� Status post stenting
� Stable without chest pain
#HFpEF, chronic
� Repeat echo
#BPH
� Hold tamsulosin for now
#DVT prophylaxis
SCDs
Anticipated Discharge: Within 24 hours
Subjective/Interval History
-
Date of Service: May 17, 2023
Clinically improving, hemoglobin improving, had lites clotted, continue CBI for today
Objective Data
-
Labs:
Laboratory Results
05/17/23
11:58
WBC 8.9
Hgb 8.5 L
Hct 25.4 L
Plt Count 100 L
Sodium 135
Potassium 3.9
Chloride 107
Carbon Dioxide 30
BUN 13
Creatinine 0.7
Glucose 81
Calcium 8.3 L
Vital Signs:
Vital Signs
Temp Pulse Resp BP Pulse Ox
98.0 F 61 20 120/71 95
05/17/23 11:19 05/17/23 14:00 05/17/23 14:00 05/17/23 12:37 05/17/23 12:46
I&O
05/16/23 05/17/23 05/18/23
06:59 06:59 06:59
Intake Total 2457.6 / 3937.6 1720 / 1720 120 / 120
Output Total 4300 / 4300 3800 / 3800 -800 / -800
Balance -1842.4 / -362.4 -2080 / -2080 920 / 920
Review of Systems
-
History Source: Patient
All other systems: Not reviewed unless documented
Data Reviewed
-
CT Scan: Image personally visualized and interpreted and Report Reviewed by me
Labs: Labs Reviewed by me
--- NOTE | 2023-05-17 18:00 | PTCARENOTE ---
Pt called for RN due to bladder pressure. He was moaning and gyrating. Hand irrigated with Sterile NSS, no clots expressed but urine was punch colored. Catheter care performed. Pyridium dose administered.
[2023-05-17] MEDS: Pyridium 200 MG PO (18:11)
[2023-05-17 22:20] LABS: Glucose - Point of Care 81 mg/dl (70-99)
[2023-05-18] VITALS (9 sets, daily range): BP systolic 98–131; BP diastolic 58–76; BMI 29.1
[2023-05-18 04:52] LABS: Hemoglobin 7.6 g/dL (13.0-18.0); Mean Corp Hgb Conc. 34.5 g/dL (33.0-37.0); Mean Corpuscular Hgb 32.5 pg (27.0-31.0); Mean Platelet Volume 11.2 fL (7.4-10.4); Platelet Count 100 10^3/uL (130-400); Red Blood Cell Count 2.34 10^6/uL (4.70-6.10); Red Cell Dist. Width 14.8 % (11.5-14.5)
[2023-05-18 05:14] LABS: Blood Urea Nitrogen 12 mg/dl (9-20); Calcium 7.9 mg/dl (8.4-10.2); Carbon Dioxide 28 mmol/L (22-30); Chloride 108 mmol/L (98-107); Estimated Creatinine Clearance 81 ml/min; Glucose 73 mg/dl (70-99); Potassium 3.7 mmol/L (3.5-5.1); Sodium 135 mmol/L (135-145); eGFR > 60.00
--- NOTE | 2023-05-18 06:37 | PTCARENOTE ---
Pt Aox4, VSS, Vpaced on monitor w/ 1st degree and BBB. CBI infusing, out put is punch colored with few clots, irrigated one time due to discomfort and pressure, no clots were evacuated but patient claimed he felt relief. Hemoglobin 7.6 and platelets
100 on morning labs. OOB to bathroom with assistx1 and walker, had 2 BMs.
--- NOTE | 2023-05-18 08:20 | PTCARENOTE ---
Received pt laying in bed. He had just transferred back to bed w/1assist w/walker. CBI w/orange colored urine. Bloody drainage from meatus noted on scrotum. Catheter care performed. Left and right #20g protective catheter both flushed and patent.
Weak peripheral pulses. Ne edema. Knee-hi SCD's intact. +BSx4. Pt had loose stool this morning. He stated he eats fruit in the morning for breakfast and with every meal. I suggested he eats food that would bulk up his stool. He verbalized his
understanding. We discussed the plan of care for today and agreed he would attempt to ambulate to the door today.
[2023-05-18] MEDS: OMNICEF 300 MG PO (08:27)
--- NOTE | 2023-05-18 09:03 | CHAP ---
Father Alpesh Puri of [facility] in [place] prayed with Dat and gave him a blessing. Time uncertain.
[2023-05-18] MEDS: Pyridium 200 MG PO (09:51)
--- NOTE | 2023-05-18 09:52 | PTCARENOTE ---
Discussed the plan of care with Dr. Mata regarding CBI, will continue at a slow drip as ordered.
--- NOTE | 2023-05-18 10:08 | W.PN.URO.CBU ---
Today's Communication / Plan
-
Continue CBI
Follow Hgb
Hold Eliquis
Assessment / Plan
-
clinically improving; H&H stable last 48-72 hours
Slow drip CBI resumed/continued: lysed clot last hand irrigated 05/17/23
Diagnosis
-
Date of Service: May 18, 2023
-
Patient Diagnosis:
Prostate Enlargement with Severe Bladder Distension and UTI
s/p TURP 05/14 -- intraoperative hypotension, apparently due to fluid-electrolyte imbalances
Subjective
-
Comfortable
No significant catheter bother
Objective
-
Vital Signs
Temp Pulse Resp BP Pulse Ox
97.9 F 60 16 131/67 97
05/18/23 08:26 05/18/23 09:00 05/18/23 09:00 05/18/23 08:00 05/18/23 08:26
Intake and Output
05/17/23 05/18/23 05/19/23
06:59 06:59 06:59
Intake Total 1720 / 1720 360 / 360 120 / 120
Output Total 3800 / 3800 1150 / 1150 400 / 400
Balance -2080 / -2080 -790 / -790 -280 / -280
Intake:
Oral fluids 720 / 720 360 / 360 120 / 120
IV fluids (Total) 1000 / 1000
Lr 1,000 ml @ 125 mls/hr IV . 1000 / 1000
Q8H CHUY Rx#:[id number]
Output:
Urine, Deras 2400 / 2400 1100 / 1100
True Urine Output from CBI 1400 / 1400 50 / 50 400 / 400
Laboratory Results
05/18/23 04:30
05/18/23 04:30
Review of Systems
-
Constitutional: Fatigue
Respiratory: No Symptoms
Cardiac: No Symptoms
Abdomen/GI: No Symptoms
: Bleeding
Neurological: No Symptoms
Physical Exam
-
General - well developed, well nourished, no acute distress
Abdomen - soft, non-tender, no CVAT
Genitalia - normal (paraphimosis reduced), Deras draining light punch urine on slow drip CBI
Skin - warm & dry with no rash
Neuro - AOx3, no motor deficits
--- NOTE | 2023-05-18 13:02 | PTCARENOTE ---
OOB to chair post loose BM in . He is very sad and emotional today. Expressed his frustration with being hospitalized still. Allowed pt to express himself and provided supportive care. Pt's arrived with lunch and aware of his mental state.
--- NOTE | 2023-05-18 14:31 | W.PN.HOSP.TC ---
Today's Communication/Plan
-
cbi
hold eliquis
monitor hgb
Assessment / Plan
Assessment / Plan
Physical Exam
General: Respiratory Distress (n) and Comfortable
HEENT: Normocephalic
Cardiovascular: S1-S2 and Regular Rhythm
Respiratory: Clear and Non-Labored Respirations
GI: Soft and Non Distended
: CBI
Neurology: Awake and Alert
Skin: Warm
73-year-old male presents status post TURP found to be mildly hypoxic, hypertensive postoperatively.� Requiring low-dose pressors.� Requiring low-dose pressors.
PLAN:
#Shock, undifferentiated: resolved
-favor hypovolemic due to volume blood loss, diarrhe
� Can continue antibiotics as per urology s/p turp
� Volume resuscitation as needed
� MAP goal greater than 65
� Trend CBC, maintain hemoglobin goal greater than 7
� Hold antihypertensives
� Follow-up echo: hyperdynamic, low filling pressures
#Acute Blood Anemia
-monitor
-Transfuse HgB >7
� CBI continued for today
#NAGMA
-2/2 to diarrhea (Chronic)
-s/p bicarb
-volume resuscitation
-resolved
#Diarrhea
chronic
can see gi outpatient
#Nausea/vomiting
� Zofran
#Hypokalemia
Monitor and replete
#TURP 05/14
-CBI continued for today
-� Can continue antibiotics as per urology s/p turp
#Transaminitis
� may be related to shock
-ctm with resuscitation
#Renal mass on left
-f/u outpatient
#Permanent atrial fibrillation
� Hold Eliquis
� Continue Cardizem
#CAD
� Status post stenting
� Stable without chest pain
#HFpEF, chronic
� Repeat echo
#BPH
� Hold tamsulosin for now
#DVT prophylaxis
SCDs
Anticipated Discharge: 24 - 48 hours
Subjective/Interval History
-
Date of Service: May 18, 2023
hematuria persists, cont cbi
Objective Data
-
Labs:
Laboratory Results
05/18/23
04:30
WBC 6.0
Hgb 7.6 L
Hct 22.0 L
Plt Count 100 L
Sodium 135
Potassium 3.7
Chloride 108 H
Carbon Dioxide 28
BUN 12
Creatinine 0.7
Glucose 73
Calcium 7.9 L
Vital Signs:
Vital Signs
Temp Pulse Resp BP Pulse Ox
97.9 F 60 15 123/74 97
05/18/23 11:55 05/18/23 13:00 05/18/23 13:00 05/18/23 12:00 05/18/23 08:26
I&O
05/17/23 05/18/23 05/19/23
06:59 06:59 06:59
Intake Total 1720 / 1720 360 / 360 240 / 240
Output Total 3800 / 3800 1150 / 1150 400 / 400
Balance -2080 / -2080 -790 / -790 -160 / -160
Review of Systems
-
History Source: Patient
All other systems: Not reviewed unless documented
Data Reviewed
-
CT Scan: Image personally visualized and interpreted and Report Reviewed by me
Labs: Labs Reviewed by me
--- NOTE | 2023-05-18 17:04 | TRANSFER ---
Report called to [facility] for room 2118. Pt will be transferred via bed.
--- NOTE | 2023-05-18 17:34 | PTCARENOTE ---
Pt received as transfer from ICU. Pt AAOx3. CBI infusing. Deras bag with punch colored urine. V paced on diagnostic cardiac sonographer. BP 112/62. Assessment documented. Pt without complaint at this time.
--- NOTE | 2023-05-18 20:14 | PTCARENOTE ---
patient ambulated to bathroom Ax1 without problems. Upon return he ate food from home. Shortly after walked to door with family and became lightheaded. He required heavy A x2 to return to bed. He was nauseous for 5 minutes but did not vomit.
Symptoms quickly resolved at rest. BP 103/64 HR 65 Sat 99 on room air Resp 18.
[2023-05-19 03:50] VITALS: BP 99/53
[2023-05-19 07:28] LABS: Hematocrit 22.8 % (39.0-52.0); Hemoglobin 7.7 g/dL (13.0-18.0); Mean Corp Hgb Conc. 33.8 g/dL (33.0-37.0); Mean Corpuscular Volume 94.6 fL (80.0-94.0); Mean Platelet Volume 11.7 fL (7.4-10.4); Platelet Count 114 10^3/uL (130-400); Red Blood Cell Count 2.41 10^6/uL (4.70-6.10); Red Cell Dist. Width 14.9 % (11.5-14.5)
[2023-05-19 07:33] LABS: Blood Urea Nitrogen 10 mg/dl (9-20); Carbon Dioxide 30 mmol/L (22-30); Chloride 106 mmol/L (98-107); Estimated Creatinine Clearance 94 ml/min; Glucose 57 mg/dl (70-99); Potassium 3.6 mmol/L (3.5-5.1); Sodium 135 mmol/L (135-145); eGFR > 60.00
[2023-05-19 07:40] VITALS: BP 118/69
--- NOTE | 2023-05-19 09:15 | W.PN.URO.CBU ---
Today's Communication / Plan
-
Stop CBI
Home with Deras when stable
Assessment / Plan
-
clinically improving; H&H stable last 48-72 hours
Slow drip CBI stopped: lysed clot last hand irrigated 05/17/23
Diagnosis
-
Date of Service: May 19, 2023
-
Patient Diagnosis:
Prostate Enlargement with Severe Bladder Distension and UTI
s/p TURP 05/14 -- intraoperative hypotension, apparently due to fluid-electrolyte imbalances
Subjective
-
Feels well
No bladder spasms
No catheter bother
Objective
-
Vital Signs
Temp Pulse Resp BP Pulse Ox
97.8 F 61 18 118/69 96
05/19/23 07:40 05/19/23 07:40 05/19/23 07:40 05/19/23 07:40 05/19/23 07:40
Intake and Output
05/18/23 05/19/23 05/20/23
06:59 06:59 06:59
Intake Total 360 / 360 720 / 720
Output Total 1150 / 1150 3400 / 3400
Balance -790 / -790 -2680 / -2680
Intake:
Oral fluids 360 / 360 720 / 720
Output:
Urine, Deras 1100 / 1100
True Urine Output from CBI 50 / 50 3400 / 3400
Laboratory Results
05/19/23 05:07
05/19/23 05:07
Review of Systems
-
Constitutional: No Symptoms
Respiratory: No Symptoms
Cardiac: No Symptoms
Abdomen/GI: No Symptoms
: Bleeding
Neurological: No Symptoms
Physical Exam
-
General - well nourished, no acute distress
Abdomen - soft, non-tender, no CVAT
Genitalia - normal with Deras draining light punch to clear urine on slow drip CBI
Skin - warm & dry with no rash
Neuro - AOx3, no motor deficits
--- NOTE | 2023-05-19 10:15 | W.PN.HOSP.TC ---
Today's Communication/Plan
-
.
Assessment / Plan
Assessment / Plan
Physical Exam
General: Respiratory Distress (n) and Comfortable
HEENT: Normocephalic
Cardiovascular: S1-S2 and Regular Rhythm
Respiratory: Clear and Non-Labored Respirations
GI: Soft and Non Distended
: CBI
Neurology: Awake and Alert
Skin: Warm
Psych: donna, no agitation
73-year-old male presents status post TURP found to be mildly hypoxic, hypertensive postoperatively.� Requiring low-dose pressors.� Requiring low-dose pressors.
PLAN:
#Shock, undifferentiated: resolved. Negative blood culture. Negative urine culture
-favor hypovolemic due to volume blood loss, diarrhea
� Empiric antibiotics was given
Status post resuscitate
Stable hemodynamically
Can resume antihypertensives
� Follow-up echo: hyperdynamic, low filling pressures
#Acute Blood loss anemia
No bleeding
-Transfuse HgB less than 7
Continue with oral iron
Status post CBI
#NAGMA
-2/2 to diarrhea (Chronic)
-s/p bicarb
-volume resuscitation
-resolved
#Diarrhea
chronic
can see gi outpatient
#Nausea/vomiting. Resolved. Tolerating diet
� Zofran
#Hypokalemia
Monitor and replete
#TURP 05/14
Stopped antibiotics
#Transaminitis
� may be related to shock
Resolved. No abdominal pain
#Renal mass on left
-f/u outpatient
#Permanent atrial fibrillation
Discussed with urology today, continue to hold Eliquis due to hematuria
� Continue Cardizem
#CAD
� Status post stenting
� Stable without chest pain
#HFpEF, chronic
No chest pain.
#BPH
Resume Flomax
#DVT prophylaxis
SCDs
Total time spent to see the patient on the floor, examine the patient, review data and lab results, discuss treatment plan with patient and nursing staff around 55 minutes
Anticipated Discharge: Within 24 hours
Subjective/Interval History
-
Date of Service: May 19, 2023
No chest pain
No abd pain
Tolerating diet
Objective Data
-
Labs:
Laboratory Results
05/19/23
05:07
WBC 5.0
Hgb 7.7 L
Hct 22.8 L
Plt Count 114 L
Sodium 135
Potassium 3.6
Chloride 106
Carbon Dioxide 30
BUN 10
Creatinine 0.6 L
Glucose 57 L
Calcium 8.0 L
Vital Signs:
Vital Signs
Temp Pulse Resp BP Pulse Ox
97.8 F 61 18 118/69 96
05/19/23 07:40 05/19/23 07:40 05/19/23 07:40 05/19/23 07:40 05/19/23 08:30
I&O
05/18/23 05/19/23 05/20/23
06:59 06:59 06:59
Intake Total 360 / 360 720 / 720 360 / 360
Output Total 1150 / 1150 3400 / 3400 200 / 200
Balance -790 / -790 -2680 / -2680 160 / 160
[2023-05-19] MEDS: FEOSOL 325 MG PO (10:35)
[2023-05-19 11:50] VITALS: BP 109/64
[2023-05-19 15:14] VITALS: BP 105/59; BP 110/62; BP 99/61; PULSE 60; O2SAT 99
--- NOTE | 2023-05-19 15:33 | PN.CDI ---
Addendum entered and electronically signed by Chikis Carrasco MD 05/19/23 16:23:
Type II AL due to demand ischemia
Original Note:
CDI
- -
CDI:
Physician Documentation Request
Admit Date: 05/15/23 09:39
Dear Doctor Danilo,
Please review the following and provide your response in the progress notes.
Clinical Indicators:
- Patient admit for shock s/p TURP, ABLA, metabolic acidosis
- per Supply Chain Generalist note 'Troponin leak noted...Suspect noncardiac in etiology'
Laboratory Tests
05/14/23 05/14/23 05/15/23
11:20 20:00 05:25
Troponin I 0.017 0.119 H* 0.250 H*
Please clarify the following regarding the documented elevated troponins:
Type II AL due to demand ischemia
Non-AL troponin elevation
Other
Use of terms such as suspected, likely, concern for, or probable (associated with a specific diagnosis that is being evaluated, monitored, or treated as if it exists) are acceptable and can be coded in the inpatient setting, when documented at the
time of discharge.
Thank you,
Mauri Barroso RN
CDI Specialist
Please use your independent medical judgment in providing your response.
[2023-05-19 15:40] VITALS: BP 135/73
--- NOTE | 2023-05-19 16:12 | CM ---
met with patient at bedside.pt is sp turp.his urine cx are negative/no bleeding per doctor.referral made to [facility] via [facility].
he will discharge home with a gotti catheter.
Plan dc home with vn from [facility].confirmed that [facility] have received referral.
--- NOTE | 2023-05-19 18:28 | PTCARENOTE ---
pt with Deras catheter maintained. CBI stopped this am at 0915 as ordered. urine output remains yellow-orange colored. no clots noted. will observe.
[2023-05-19] MEDS: FLOMAX 0.400000000000000022 MG PO (20:41)
[2023-05-19 23:00] VITALS: BP 97/60
[2023-05-20 05:26] LABS: Hematocrit 22.3 % (39.0-52.0); Hemoglobin 7.7 g/dL (13.0-18.0); Mean Corp Hgb Conc. 34.5 g/dL (33.0-37.0); Mean Corpuscular Volume 92.5 fL (80.0-94.0); Mean Platelet Volume 10.7 fL (7.4-10.4); Platelet Count 125 10^3/uL (130-400); Red Blood Cell Count 2.41 10^6/uL (4.70-6.10); White Blood Cell Count 5.9 10^3/uL (4.8-10.8)
[2023-05-20 05:46] LABS: ALT (SGPT) 30 U/L (0-50); AST (SGOT) 28 U/L (17-59); Albumin 2.3 g/dl (3.5-5.0); Alkaline Phosphatase 96 U/L (38-126); Blood Urea Nitrogen 10 mg/dl (9-20); Calcium 8.4 mg/dl (8.4-10.2); Carbon Dioxide 28 mmol/L (22-30); Chloride 102 mmol/L (98-107); Estimated Creatinine Clearance 94 ml/min; Glucose 63 mg/dl (70-99); Magnesium 1.8 mg/dl (1.6-2.3); Potassium 3.6 mmol/L (3.5-5.1); Sodium 136 mmol/L (135-145); Total Bilirubin 1.2 mg/dl (0.2-1.3); Total Protein 4.5 g/dl (6.3-8.2); eGFR > 60.00
[2023-05-20 07:30] VITALS: BP 116/69
[2023-05-20 09:00] VITALS: BMI 29.1
[2023-05-20] MEDS: FEOSOL 325 MG PO (09:13)
--- NOTE | 2023-05-20 10:42 | W.PN.HOSP.TC ---
Addendum entered and electronically signed by Chikis Carrasco MD 05/20/23 11:37:
Addendum
Pt is seen again
He passed a clot in urine and was uncomfortable to go home
NO pain
WIll monitor for now
CBC in AM
Urine bag still hematuria. Eliquis on hold until 06/02 per urology
End
Original Note:
Today's Communication/Plan
-
Possible dc if ok with urology
Assessment / Plan
Assessment / Plan
Physical Exam
General: Respiratory Distress (n) and Comfortable
HEENT: Normocephalic
Cardiovascular: S1-S2 and Regular Rhythm
Respiratory: Clear and Non-Labored Respirations
GI: Soft and Non Distended
: CBI
Neurology: Awake and Alert
Skin: Warm
Psych: donna, no agitation
73-year-old male presents status post TURP found to be mildly hypoxic, hypertensive postoperatively.� Requiring low-dose pressors.� Requiring low-dose pressors.
PLAN:
#Shock, undifferentiated: resolved. Negative blood culture. Negative urine culture
-favor hypovolemic due to volume blood loss, diarrhea
� Empiric antibiotics was given
Stable hemodynamically
Can resume Cardizem upon dc
� Follow-up echo: hyperdynamic, low filling pressures
# History of benign prostatic hypertrophy with severe bladder distention //urinary retention bacterial prostatitis status post TURP on 05/14/[address] Canela currently continue with Deras.
mild hematuria noted.
#Acute Blood loss anemia
No bleeding
-Transfuse HgB less than 7. HGB stable
Continue with oral iron
Status post CBI
#NAGMA
-2/2 to diarrhea (Chronic)
-s/p bicarb
-volume resuscitation
-resolved
#Diarrhea
chronic
can see gi outpatient
#Nausea/vomiting. Resolved. Tolerating diet
� Zofran
#Hypokalemia
Monitor and replete
#TURP 05/14
Stopped antibiotics
#Transaminitis
� may be related to shock
Resolved. No abdominal pain
#Renal mass on left
-f/u outpatient
#Permanent atrial fibrillation
Discussed with urology, continue to hold Eliquis due to hematuria
� Continue Cardizem
#CAD
� Status post stenting
� Stable without chest pain
#HFpEF, chronic
No chest pain.
#BPH
Resume Flomax
#DVT prophylaxis
SCDs
Total time spent to see the patient on the floor, examine the patient, review data and lab results, discuss treatment plan with patient and nursing staff around 55 minutes
Anticipated Discharge: Within 24 hours
Subjective/Interval History
-
Date of Service: May 20, 2023
No chest pain
No sob
No abd pain
Objective Data
-
Labs:
Laboratory Results
05/20/23
05:03
WBC 5.9
Hgb 7.7 L
Hct 22.3 L
Plt Count 125 L
Sodium 136
Potassium 3.6
Chloride 102
Carbon Dioxide 28
BUN 10
Creatinine 0.6 L
Glucose 63 L
Calcium 8.4
Total Bilirubin 1.2
AST 28
ALT 30
Alkaline Phosphatase 96
Vital Signs:
Vital Signs
Temp Pulse Resp BP Pulse Ox
98.5 F 60 16 116/69 99
05/20/23 07:30 05/20/23 07:30 05/20/23 07:30 05/20/23 07:30 05/20/23 07:30
I&O
01/22/24 01/23/24 01/24/24
06:59 06:59 06:59
Intake Total 720 / 720 3600 / 3600
Output Total 3400 / 3400 2625 / 2625
Balance -2680 / -2680 975 / 975
--- NOTE | 2023-05-20 14:25 | CM ---
Reviewed the chart notes and spoke with the patient at the bedside. IMM signed and placed on chart. The patient anticipates being discharged tomorrow to home with [facility] on VN services. CM continues to be available to patient/family and is
monitoring medical plan for needs at discharge.
Plan: Discharge to home when medically stable with VN services.
[2023-05-20 15:30] VITALS: BP 96/54
[2023-05-20] MEDS: FLOMAX 0.400000000000000022 MG PO (21:57)
[2023-05-20 23:15] VITALS: BP 117/64
[2023-05-21 07:45] VITALS: BP 111/66
[2023-05-21] MEDS: FEOSOL 325 MG PO (08:16)
--- NOTE | 2023-05-21 09:59 | W.DCSUMMARY ---
Discharge Summary
Discharge Data
Date of Admission: 05/15/23
Date of Discharge: 05/21/23
-
Pending Results: No
Hospital Course
73 years old male presented after prostate surgery with mild hypoxia, hypotension. Patient was diagnosed with hypovolemic shock. He was given empiric antibiotic and intravenous fluid. Blood culture did not show any growth. Urine culture remained
negative. Antibiotics were discontinued. Patient started to improve. He was followed by hog cutter. Patient had history of permanent atrial fibrillation. His heart rate was controlled. Anticoagulation was on hold due to recent surgery.
Patient had continuous bladder irrigation for hematuria. Hematuria improved and he was maintained on Deras catheter. Hemoglobin remained stable and he was started on oral iron replacement therapy. Patient did not have chest pain or shortness of
breath. Urology doctor recommended to start Eliquis on June 02, 2023. Patient was discharged in a stable condition
Physical Exam
General: Respiratory Distress (n) and Comfortable
HEENT: Normocephalic
Cardiovascular: S1-S2 and Regular Rhythm
Respiratory: Clear and Non-Labored Respirations
GI: Soft and Non Distended
: CBI
Neurology: Awake and Alert
Skin: Warm
Psych: donna, no agitation
Total discharge time spent to see the patient on the floor, examine the patient, review data and lab results, discuss treatment plan with patient and nursing staff around 65 minutes
Discharge Plan
-
Patient Disposition: Home (Routine Discharge)
Discharge Diagnosis/Procedures: Prostate Enlargement with Urinary Retention, status post transurethral resection of the prostate.
Hematuria
Blood loss anemia, continue on oral iron
Condition: Good
Diet: No restrictions
Activity: No strenuous activity
Driving Restrictions: As prior to admission
Bathing Restrictions: None
Referrals:
Skip Canela MD [Active] - (call Friday to schedule 'Deras removal' with nurse on Friday)
UNKNOWN - PT DOES,NOT KNOW [Unknown Provider] -
Prescriptions:
New
finasteride 5 mg tablet
5 mg PO DAILY Qty: 90 3RF
tamsulosin 0.4 mg capsule
0.4 mg PO HS Qty: 90 3RF
Continued
diltiazem HCl [Cardizem] 120 MG tablet
120 mg PO DAILY
cefdinir 300 mg Capsule
300 mg PO BID Qty: 14 0RF
omega 5-xru-apu-fish oil [Fish Oil] 1,200 (144-216) mg Capsule
1 cap PO DAILY
Held
Eliquis 5 MG tablet
5 mg PO BID
Hold Instructions: Resume on 06/02/23.
Discharge Orders:
Discharge Patient (As Directed); Ordered 05/21/23
Ordered By: Chikis Carrasco
--- NOTE | 2023-05-21 10:51 | CM ---
Reviewed the chart notes. Patient is to be discharged today to home with VN services. Patient's spouse will provide transportation home. CM continues to be available to patient/family and is monitoring medical plan for needs at discharge.
Plan: Discharge to home with VN services.
--- NOTE | 2023-05-21 11:31 | W.PN.UPDATE ---
Update Note
Progress Note Update
Urine via Deras is yellow.
Patient feels fit for discharge.
== END 2023-05-21 11:49 | disposition home health service (06) | DRG 713 ==
LOC: 2 SOUTH 09:39
PROVIDERS: Anesthesiology; Nurse Practitioner Primary Care; Specialist; ADMITTING PHYSICIAN Internal Medicine; ATTENDING PHYSICIAN Internal Medicine; CONSULT PHYSICIAN Internal Medicine Cardiovascular Disease; CONSULT PHYSICIAN Internal Medicine Critical Care Medicine; FAMILY PHYSICIAN Family Medicine
PROC: 0VB08ZZ Excision of Prostate, Via Natural or Artificial Opening Endoscopic (ICD-10-PCS; 2023-05-14)
DX: N40.1 Benign prostatic hyperplasia with lower urinary tract symptoms (principal); R57.1 Hypovolemic shock; E87.20 Acidosis, unspecified; I48.21 Permanent atrial fibrillation; I50.32 Chronic diastolic (congestive) heart failure; N13.8 Other obstructive and reflux uropathy; T81.10XA Postprocedural shock unspecified, initial encounter; R33.8 Other retention of urine; R31.9 Hematuria, unspecified; Z90.79 Acquired absence of other genital organ(s); Z79.01 Long term (current) use of anticoagulants; D50.0 Iron deficiency anemia secondary to blood loss (chronic); E87.6 Hypokalemia; I25.10 Atherosclerotic heart disease of native coronary artery without angina pectoris; R09.02 Hypoxemia
CPT/HCPCS: 88305; 88312; 93308; 71045; 80048; 80053; 82533; 82962; 83036; 83735; 83880; 84484; 85014; 85018; 85025; 85027; 86850; 86900; 86901; 93005; 97116; 97163; 97167

== ENCOUNTER 2023-09-05 05:54 | Day surgery (SDC) | payer OTHER, SELFPAY ==
[2023-08-25 09:02] VITALS: BMI 27.4
[2023-08-25 09:44] LABS: % Basophils 0.3 % (0-2); % Eosinophils 0.5 % (0-6); % Immature Granulocytes 0.3 % (0-0.5); % Lymphocytes 13.1 % (20.5-51.1); % Monocytes 3.5 % (1.7-9.3); % Neutrophils 82.3 % (42.2-75.2); Absolute Lymphocytes 0.8 10^3/uL (1.2-3.4); Absolute Monocytes 0.2 10^3/uL (0.1-0.6); Absolute Neutrophils 4.7 10^3/uL (1.4-6.5); Hematocrit 30.3 % (39.0-52.0); Hemoglobin 9.9 g/dL (13.0-18.0); Mean Corp Hgb Conc. 32.7 g/dL (33.0-37.0); Mean Corpuscular Hgb 28.9 pg (27.0-31.0); Mean Corpuscular Volume 88.3 fL (80.0-94.0); Mean Platelet Volume 10.7 fL (7.4-10.4); Nucleated Red Blood Cells % 0 % (-); Platelet Count 146 10^3/uL (130-400); Red Blood Cell Count 3.43 10^6/uL (4.70-6.10); Red Cell Dist. Width 15.9 % (11.5-14.5); White Blood Cell Count 5.7 10^3/uL (4.8-10.8)
[2023-08-25 09:50] LABS: ALT (SGPT) 55 U/L (0-50); AST (SGOT) 42 U/L (17-59); Albumin 3.8 g/dl (3.5-5.0); Alkaline Phosphatase 100 U/L (38-126); Blood Urea Nitrogen 26 mg/dl (9-20); Calcium 9.5 mg/dl (8.4-10.2); Carbon Dioxide 23 mmol/L (22-30); Chloride 108 mmol/L (98-107); Estimated Creatinine Clearance 76 ml/min; Glucose 141 mg/dl (70-99); Potassium 3.9 mmol/L (3.5-5.1); Sodium 139 mmol/L (135-145); Total Bilirubin 1.5 mg/dl (0.2-1.3); Total Protein 6.2 g/dl (6.3-8.2); eGFR > 60.00
[2023-08-25 18:10] LABS: Vitamin B12 571 pg/ml (239-931)
[2023-09-05] VITALS (8 sets, daily range): BP systolic 97–134; BP diastolic 51–90
--- NOTE | 2023-09-05 16:49 | ITS.CL.PACE ---
Extension Agent - Pacemaker Implant
Pacemaker Implant
Procedure Report:
Date of Procedure: September 05, 2023.
Procedures: Dual chamber pacemaker generator change. Pacemaker pulse generator explantation and pacemaker pulse generator implantation.
Indication: Pacemaker at [facility] from natural battery depletion. 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 Known AFib.
Performing physician: Michael Christopher MD, [facility].
Implant: Pacemaker Pulse Generator: Medtronic; Model# W1DR01; Serial# [id number].
Explanted Pacemaker Pulse Generator (implanted 01/18/2025): Medtronic; Model# A2DR01; Serial# [id number]
Retained Leads (Implanted 01/18/2025):
RA Lead: Medtronic; Model# 5076-52cm; Serial# [id number].
RV Lead: Medtronic; Model# 5076-58cm; Serial# [id number]
Technique: A time out was performed. The procedure site was identified. The patient was anesthetized by the anesthesia service. Preoperative cefazolin was administered prior to skin incision. The patient was prepped and draped in the usual fashion.
Local anesthetic was applied to the left prepectoral subcutaneous tissue. A 3 inch incision was made over the pulse generator. The capsule was entered with Bovie cautery. The old pacemaker pulse generator was explanted. No Bovie cautery was applied
to the lead system. The leads were appropriately attached to the new device. The pocket was irrigated with antibiotic solution. Hemostasis was excellent. The device and leads were placed in the pocket. The incision was closed in three layers with
absorbable suture. Steri-strips and an Aquacel dressing were applied. The estimated blood loss was less than 5 mL. There were no complications. No fluoroscopy.
Lead Analysis:
RA lead:Afib: 1.4mV; Threshold:n/a; Impedance: 304 ohms.
RV lead: R: n/a; PVCs were 5 mV; Threshold: 1.25 V @ 0.4 ms; Impedance: 304ohms.
Final Programming: VVIR 60 - 130 bpm.
�
Conclusion: Uncomplicated Medtronic pacemaker change. The pacemaker is MRI conditional.
Recommendation: Routine post pacemaker care.
cc Handy Pope MD and Jose Avalos MD.
== END 2023-09-05 10:24 | disposition home or self-care (01) ==
LOC: CATH 05:54
PROVIDERS: ATTENDING PHYSICIAN Internal Medicine Cardiovascular Disease; FAMILY PHYSICIAN Family Medicine; OTHER PHYSICIAN Internal Medicine Cardiovascular Disease
DX: Z45.010 Encounter for checking and testing of cardiac pacemaker pulse generator [battery] (principal); I44.2 Atrioventricular block, complete; I49.5 Sick sinus syndrome; I50.32 Chronic diastolic (congestive) heart failure; I48.91 Unspecified atrial fibrillation; I25.10 Atherosclerotic heart disease of native coronary artery without angina pectoris; Z95.5 Presence of coronary angioplasty implant and graft; E78.5 Hyperlipidemia, unspecified; E11.9 Type 2 diabetes mellitus without complications; G47.33 Obstructive sleep apnea (adult) (pediatric); K76.0 Fatty (change of) liver, not elsewhere classified; N40.0 Benign prostatic hyperplasia without lower urinary tract symptoms; Z79.01 Long term (current) use of anticoagulants
CPT/HCPCS: 33228; 36415; 80053; 82607; 85025; 93005; C1785

== ENCOUNTER → 2023-09-29 11:32 | Outpatient (REF) | payer OTHER, SELFPAY ==
[2023-09-29 13:31] LABS: % Basophils 0.8 % (0-2); % Eosinophils 4.3 % (0-6); % Immature Granulocytes 0.2 % (0-0.5); % Lymphocytes 15.8 % (20.5-51.1); % Monocytes 8.2 % (1.7-9.3); % Neutrophils 70.7 % (42.2-75.2); Absolute Eosinophils 0.2 10^3/uL (0-0.7); Absolute Lymphocytes 0.8 10^3/uL (1.2-3.4); Absolute Monocytes 0.4 10^3/uL (0.1-0.6); Absolute Neutrophils 3.4 10^3/uL (1.4-6.5); Hematocrit 31.5 % (39.0-52.0); Hemoglobin 10.2 g/dL (13.0-18.0); Mean Corp Hgb Conc. 32.4 g/dL (33.0-37.0); Mean Corpuscular Hgb 29.1 pg (27.0-31.0); Mean Platelet Volume 10.4 fL (7.4-10.4); Nucleated Red Blood Cells % 0 % (-); Platelet Count 163 10^3/uL (130-400); Red Cell Dist. Width 18.1 % (11.5-14.5); White Blood Cell Count 4.9 10^3/uL (4.8-10.8)
== END ==
LOC: OIDL 11:32
PROVIDERS: ATTENDING PHYSICIAN Internal Medicine Hematology & Oncology
DX: D50.9 Iron deficiency anemia, unspecified (principal)
CPT/HCPCS: 85025

== ENCOUNTER → 2023-10-09 10:33 | Outpatient (REF) | payer OTHER, SELFPAY | LOC: RAD 10:33 | PROVIDERS: ATTENDING PHYSICIAN Internal Medicine Gastroenterology; FAMILY PHYSICIAN Family Medicine | DX: R19.7 Diarrhea, unspecified (principal) | CPT/HCPCS: 74022 ==

== ENCOUNTER → 2024-01-15 12:18 | Outpatient (REF) | payer OTHER, SELFPAY | LOC: RAD 12:18 | PROVIDERS: ATTENDING PHYSICIAN Family Medicine | DX: J90 Pleural effusion, not elsewhere classified (principal) | CPT/HCPCS: 71046 ==

== ENCOUNTER 2024-01-19 14:28 | Inpatient (IN) | payer OTHER, SELFPAY ==
[2024-01-17] VITALS (12 sets, daily range): BP systolic 87–137; BP diastolic 54–86; BMI 23.1; BMI 21.7
--- NOTE | 2024-01-17 11:36 | ED.GENMED ---
History of Present Illness
General
Chief Complaint: Weakness
Source: patient
Exam Limitations: none
Time Seen by Provider: 01/17/24 11:30
History of Present Illness
History of Present Illness:
See MDM
Past History
Past History
ED Past Medical History: Arrthythmia, CAD, GERD, HTN, Hypercholesterolemia, GA (1999) and Other (pancreatitis)
ED Past Surgical History: Cardiac (angioplasty, one stent july 06 1999, cardiac cath 2012, pacemaker 2014) and Tonsilectomy
Patient has exhibited threatening behavior?: No
Social History
Tobacco: Non-smoker
Alcohol: None
Personal:
Living: with family
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
Family History
Family History: Negative Diabetes, Hypertension or CAD
Phy Exam
Physical Exam
Physical Exam:
See MDM
Course
Orders/Labs/Results
Orders:
Orders
01/17/24 11:35
Electrocardiogram (*1) Urgent
Reason for Study: Shortness of Breath
EKG- Treatment ONCE
01/17/24 11:50
COVID-19 Antigen Urgent
Source: Nasal Swab
Complete Blood Count/With Diff Urgent
Comprehensive Metabolic Panel Urgent
NT-proBNP Urgent
Troponin I Urgent
01/17/24 12:52
Furosemide [Lasix] 40 mg IV NOW STA
CR Chest - 2 Views Urgent
Comment:
Reason For Exam: SOB
Abnormal Lab Results
01/17/24
11:50
RBC 4.27 L 10^6/uL
(4.70-6.10)
Hgb 12.9 L g/dL
(13.0-18.0)
Hct 37.6 L %
(39.0-52.0)
MPV 10.6 H fL
(7.4-10.4)
Absolute Lymphs (auto) 0.9 L 10^3/uL
(1.2-3.4)
Lymphocytes % 15.5 L %
(20.5-51.1)
Chloride 96 L mmol/L
(98-107)
BUN 24 H mg/dl
(9-20)
Total Bilirubin 2.0 H mg/dl
(0.2-1.3)
01/17/24 11:50
01/17/24 11:50
Vital Signs
Initial and Last Documented VS:
Initial Vital Signs
Temp Pulse Resp BP Pulse Ox
98.0 F 64 16 102/63 98
01/17/24 10:49 01/17/24 10:49 01/17/24 10:49 01/17/24 10:49 01/17/24 10:49
Last Documented Vital Signs
Temp Pulse Resp BP Pulse Ox
98.0 F 60 14 110/80 98
01/17/24 10:49 01/17/24 12:00 01/17/24 12:00 01/17/24 12:00 01/17/24 10:49
MDM/Problems Addressed
Differential Diagnosis Includes:
HPI and MDM Narrative:
73-year-old male presenting with generalized weakness, fatigue and shortness of breath. Patient states he recently returned from a trip from [place] where he lives. He states he was admitted for 8 days for 'fluid in the lungs'. Patient was started
on new medications which include Lasix and blood pressure medicine. Patient becoming weak and fatigued with minimal exertion.
Outpatient chest x-ray showed no significant abnormality. His symptoms are likely related to medication versus ACS. Will obtain EKG and troponin
Patient acknowledges that his legs were much more edematous in [place] and now they have normalized
Physical exam
General:. Supervisor Cell Maintenance does not brains
HEENT: protecting airway. Mildly dry mucous membranes
Neck: appears supple
CV: No evidence of cyanosis. Regular rate and rhythm
Resp: No accessory muscle use
Abd: Non-distended
Extremities: No deformities. No leg edema
Neuro: alert
Psych: Normal affect
Skin: Intact
Problems Addressed including Acute and Chronic Conditions affecting care:
1. Exertional dyspnea
Acuity: acute
Prognosis: stable
Details: Likely in setting of overdiuresis versus ACS. Will obtain EKG and troponin
Updates
BNP is elevating and is currently 4500. Given his exertional dyspnea with lab values, will give Lasix and admit
Differential Diagnosis (but not limited to): ACS, medication side effect, orthostasis
Testing considered: D-dimer but he is on Eliquis
Drug therapy (if applicable): OTC meds, please see d/c instruction regarding Rx drugs
Amount and/or Complexity of Data Reviewed
Clinical info obtained from: Patient
External data reviewed: outpatient chest x-ray shows no acute abnormality
Labs I independently reviewed (but not limited to): Elevated BNP
Radiology: N/A
Pulse Ox: not hypoxic
EKG independently reviewed: N/A
Apparel Merchandiser: N/A
Critical Care: N/A
Risk of Complication:
Social Determinants of health: Good social support
Discussed with other providers: Hospitalist
Escalation of Care includes Admit/Obs: Given his exertional dyspnea and worsening heart failure, will admit
Occasional wrong word or 'sound a like' substitutions may have occurred due to the inherent limitations of voice recognition software. Read the chart carefully and recognize, using context, where substitutions have occurred.
*Critical Care Note
Total Time (30-74mins, 75-104mins- exclusive of procedures): Not Applicable
ED Attending Note
-
Portions of this chart may have been created with voice recognition software.� Occasional wrong word or��sound alike� substitutions may have occurred due to the inherent limitations of voice recognition software.
Discharge Plan
Departure
Patient Disposition: Admit
Date of Disposition: 01/17/24
Time of Disposition: 12:56
Presentation/result/management discussed w/ accepting MD/DO: Hospitalist
Discharge Problem:
Acute exacerbation of CHF (congestive heart failure)
Prescriptions:
No Action
Eliquis 5 MG tablet
5 mg PO BID
Lasix 25 mg tablet
50 mg BID
spironolactone [Aldactone] 100 mg Tablet
100 mg PO DAILY
pantoprazole 40 mg Tablet,Delayed Release (Dr/Ec)
40 mg PO DAILY
Referrals:
Jose Avalos MD [Family Provider] -
Interventions
Interventions:
*Risk Screen - Suicide Last Done: 01/17/24 10:49
*General Assessment Last Done: 01/17/24 11:47
*Neglect/Abuse Screening Last Done: 01/17/24 10:49
ED- Fall Risk Assessment Last Done: 01/17/24 12:11
*ED COVID-19 Vaccine History Last Done: 01/17/24 11:47
ED- Cardiac Assessment Last Done: 01/17/24 12:11
ED- Neurological Assessment Last Done: 01/17/24 12:11
ED- Pulmonary Assessment Last Done: 01/17/24 12:11
Discharge Date and Time
Print Language: TAMAZIGHT
[2024-01-17 12:04] LABS: % Basophils 1.2 % (0-2); % Eosinophils 3.4 % (0-6); % Immature Granulocytes 0.4 % (0-0.5); % Lymphocytes 15.5 % (20.5-51.1); % Monocytes 9.3 % (1.7-9.3); % Neutrophils 70.2 % (42.2-75.2); Absolute Basophils 0.1 10^3/uL (0-0.2); Absolute Eosinophils 0.2 10^3/uL (0-0.7); Absolute Lymphocytes 0.9 10^3/uL (1.2-3.4); Absolute Monocytes 0.5 10^3/uL (0.1-0.6); Absolute Neutrophils 3.9 10^3/uL (1.4-6.5); Hematocrit 37.6 % (39.0-52.0); Hemoglobin 12.9 g/dL (13.0-18.0); Mean Corp Hgb Conc. 34.3 g/dL (33.0-37.0); Mean Corpuscular Hgb 30.2 pg (27.0-31.0); Mean Corpuscular Volume 88.1 fL (80.0-94.0); Mean Platelet Volume 10.6 fL (7.4-10.4); Nucleated Red Blood Cells % 0 % (-); Platelet Count 187 10^3/uL (130-400); Red Blood Cell Count 4.27 10^6/uL (4.70-6.10); Red Cell Dist. Width 14.2 % (11.5-14.5); White Blood Cell Count 5.6 10^3/uL (4.8-10.8)
[2024-01-17 12:14] LABS: ALT (SGPT) 39 U/L (0-50); AST (SGOT) 46 U/L (17-59); Albumin 4.2 g/dl (3.5-5.0); Alkaline Phosphatase 100 U/L (38-126); Blood Urea Nitrogen 24 mg/dl (9-20); Carbon Dioxide 30 mmol/L (22-30); Chloride 96 mmol/L (98-107); Estimated Creatinine Clearance 58 ml/min; Glucose 97 mg/dl (70-99); Potassium 4.5 mmol/L (3.5-5.1); Sodium 139 mmol/L (135-145); eGFR > 60.00
[2024-01-17 12:15] LABS: COVID-19 Antigen Negative (Negative)
[2024-01-17 12:25] LABS: NT-proBNP 4500 pg/ml; Troponin I 0.024 ng/ml
[2024-01-17] MEDS: LASIX 40 MG IV ×2 (13:04→17:30)
--- NOTE | 2024-01-17 13:08 | PHANOTE ---
Med Rec Note:
Pt stated he was recently discharged from a hospital in [place], and stopped all his [place] medications. He has been taking the medications prescribed by the [facility].
--- NOTE | 2024-01-17 13:29 | HPS.HSE ---
Family Physician
-
Family Physician: Jose Avalos
Chief Complaint
-
Weakness
History of Present Illness
73-year-old male presented with generalized weakness and shortness of breath. He recently visited ED where he lives. He was admitted there for 8 days for extra fluid in his lungs. He was given new medicines including Lasix and other medicines for
blood pressure. He was still feeling weak and fatigued with exertion. Patient also thinks that his legs are getting better and swelling is much better. Has no appetite or energy
Medical History
Past Medical History
Past Medical History: Reports Other
Additional Past Medical History:
Neuropathy NOS sleep apnea, atrial fibrillation, coronary artery disease, hypertension, pacemaker, GERD, IBS, history of pancreatitis, enlarged prostate, Deras catheter, hearing impairment, anemia
Past Surgical History: Reports Other
Additional Past Surgical History:
Tonsillectomy, cardiac stent, deviated nasal septum repair, cardiac catheterization, pacemaker placement, cholecystectomy
Social History
Tobacco: Non-smoker
Alcohol: None
Drug: None
Personal:
Living: With Family
Employment: Retired
Family History
Family History: Cancer (Brother had brain tumor, son had testicular cancer, daughter had colon cancer)
Allergies / Home Medications
Allergies reflects when Allergies were last updated in [facility] [employer] [facility].
Home Medications with original date entered in [facility] [employer] [facility]
Allergy/Medication List:
Allergies
Allergy/AdvReac Type Severity Reaction Status Date / Time
No Known Allergies Allergy Verified 01/17/24 10:54
Home Medications
apixaban 5 mg tablet (Eliquis) 5 mg PO BID Blood Clot Prevention/Tx 08/30/21
Bisoprolol 1.25 mg PO DAILY 01/17/24
Lasix 50 mg PO BID@0800,1500 01/17/24
Zyloric 300 mg PO DAILY@1500 01/17/24
pantoprazole 40 mg tablet,delayed release 40 mg PO DAILY 01/17/24
spironolactone 100 mg tablet (Aldactone) 100 mg PO DAILY@1600 01/17/24
Review of Systems
-
History Source: Patient
Constitutional: Reports Fatigue; Denies Weight Loss
Respiratory: Denies Trouble Breathing
Cardiac: Denies Chest Pain
Physical Exam
Vital Signs
Vital Signs
Temp Pulse Resp BP Pulse Ox
98.0 F 60 14 110/80 98
01/17/24 10:49 01/17/24 12:00 01/17/24 12:00 01/17/24 12:00 01/17/24 10:49
Physical Exam
General: Comfortable and Conversant
Respiratory: Clear
Cardiac: S1/S2 and Regular Rhythm
GI: Soft and Non Tender
Neuro: AO x 3, No Motor Deficits and Other (Bilateral lower extremity neuropathy-chronic)
Psych: Intact Judgment/Insight
Laboratory Results
-
01/17/24 11:50
01/17/24 11:50
Laboratory Results
Total Bilirubin 2.0 mg/dl (0.2-1.3) H 01/17/24 11:50
AST 46 U/L (17-59) 01/17/24 11:50
ALT 39 U/L (0-50) 01/17/24 11:50
Alkaline Phosphatase 100 U/L (38-126) 01/17/24 11:50
Troponin I 0.024 ng/ml 01/17/24 11:50
Data Reviewed
-
Diagnostic Radiology: Image Personally Visualized and interpreted (Chest x-ray reviewed by me-right basilar scarring)
Impression/Plan
-
IMPRESSION/PLAN:
Echo 1 8264-normal LV size and hyperdynamic systolic function. EF 80+ percent. Normal RV size and function. Pacer wire in RV. Severely dilated LA. Moderately dilated RA. Normal pericardium and pleura.
# CHF-acute on chronic HFPEF
Clinically does not look like terribly volume overloaded
Recent chest x-ray reviewed by me
Recently treated for fluid overload and a telemetry and was in the hospital for 8 days per patient. Patient states that his legs are much better now but he has no energy
BNP 4500
Trend trops
Diuresis-Lasix 40 mg IV twice daily
Cardiology evaluation
Continue beta-blockers, Aldactone.
Patient denies any significant weight loss other than recent weight loss with diuresis.
Unclear why his calcium blockers were discontinued which makes me wonder if his EF was low. Also see that patient is on spironolactone now.
May need to repeat echo
# Paroxysmal atrial fibrillation-continue bisoprolol, Eliquis. Patient states his diltiazem was discontinued and a daily
# Coronary artery disease with history of stent ,coronary artery calcification
# History of pacemaker placement with revision 09/05/2023
# Gout-on Zyloric
# Enlarged prostate with history of TURP
# Anemia-NOS
# Sleep apnea
# History of pancreatitis
# Bilateral lower extremity neuropathy-chronic
# History of complex lobulated cyst with calcification in the left kidney
# DVT Prophylaxis- Eliquis
# CODE STATUS-full code
Discussed with at bedside
--- NOTE | 2024-01-17 16:54 | CON.CAR ---
Consultation
Consultation Request
Date/Time Consultation Requested: 01/17/24, 3pm
Date/Time Consultation Performed: 01/17/24, 4pm
Requesting Provider: Rosalinda
Performing Provider: Andre
Reason for Consultation: GIBBONS, dizziness
Medical History
-
Chief Complaint: dizziness, GIBBONS
History of Present Illness:
73 yo male with PMH of CAD, s/p OM stent in 1999, permanent A fib on eliquis, MDT PPM is admitted with weakness, dizziness, GIBBONS. He was in [place] over the summer. He had a few issues while there. Sounds like in beginning of summer, may have had
hypoglycemic seizure. Then, later in summer, sounds like was admitted with heart failure, and his diltiazem was changed to bystolic, and aldactone was added.
Now he continues to experience dizziness, and GIBBONS. No chest pain. He does not have significant edema.
He was given IV lasix in ED.
Past Medical History
Past Medical History: Arrhythmias (permanent A fib), CAD and CHF (unknown type)
Past Surgical History: Cardiac (PPM 2014, coronary stent 1999) and Other (prostate)
Social History
Tobacco: Non-Smoker
Family History
Family History: Early CAD (none)
Allergies / Home Medications
Allergy/AdvReac Type Severity Reaction Status Date / Time
No Known Allergies Allergy Verified 01/17/24 10:54
�Medication �Instructions �Recorded �Confirmed �Type
apixaban 5 mg tablet (Eliquis) 5 mg PO BID Blood Clot 08/30/21 01/17/24 History
Prevention/Tx
Bisoprolol 1.25 mg PO DAILY 01/17/24 01/17/24 History
Lasix 50 mg PO BID@0800,1500 01/17/24 01/17/24 History
Zyloric 300 mg PO DAILY@1500 01/17/24 01/17/24 History
pantoprazole 40 mg tablet,delayed 40 mg PO DAILY 01/17/24 01/17/24 History
release
spironolactone 100 mg tablet 100 mg PO DAILY@1600 01/17/24 01/17/24 History
(Aldactone)
Review of Systems
-
History Source: Patient
Constitutional: Fatigue
Respiratory: Trouble Breathing
Neurological: Weakness
Physical Exam
Vital Signs
Temp Pulse Resp BP Pulse Ox
98.0 F 62 16 114/68 98
01/17/24 10:49 01/17/24 16:00 01/17/24 16:00 01/17/24 16:00 01/17/24 10:49
Lab Results
01/17/24 11:50
01/17/24 11:50
Troponin I Cancelled 01/17/24 22:18
Ieb-P-Dlstzetmwah Pept 4500 pg/ml 01/17/24 11:50
Physical Exam
General: Well Developed and Well Nourished
HEENT: Normocephalic and Anicteric
Respiratory: Clear and Non Labored Respirations
Cardiac: S1/S2 (normal), Regular Rhythm, Murmur (none) and Peripheral Edema (none)
GI: Soft and Non Tender
Musculoskeletal: Clubbing, Cyanosis and No Edema
Skin: Warm
Neuro: AO x 3
Hematologic/Lymphatic: Lymphadenopathy
Psych: Calm
Impression / Plan
-
73 yo male with PMH of CAD, s/p OM stent in 1999, permanent A fib on zahraa, T PPM is admitted with weakness, dizziness, GIBBONS. He was in [place] over the summer. He had a few issues while there. Sounds like in beginning of summer, may have had
hypoglycemic seizure. Then, later in summer, sounds like was admitted with heart failure, and his diltiazem was changed to bystolic, and aldactone was added.
# Suspected HF, type unknown
-meds were changed to GDMT in [place], suspicious for reduced EF
-he is on high dose aldactone: may need to reduce dose
-continue IV lasix, with close monitoring of labs and tele; may be able to transition to PO tomorrow
# Dizziness, GIBBONS
-will check echo this admission
-trend tele
-to consider nuclear stress
# CAD, s/p OM stent 1999
-last cath stable 2009
-given above sxs, will consider stress this admit
-not on ASA since on eliquis for A fib
# Permanent A fib
-cont beta nathanael
-cont eliquis 5mg bid
# s/p PPM
-trend tele
Data Reviewed
-
EKG: Tracing Personally Visualized and interpreted (A fib, Vpaced)
Medical Tests (Nuc Med, Echo etc): Report Reviewed by me (echo 04/2023: hyperdynamic LVEF, no sig valve disease)
Labs: Labs Reviewed by me
--- NOTE | 2024-01-17 17:04 | PTCARENOTE ---
Admitted into room 433. AOx3. VSS. Vpaced on telemetry, HR 60s. Discussed plan of care. Provided w/ heart failure packet. Encouraged to make needs known.
[2024-01-17] MEDS: ALDACTONE 100 MG PO (17:30)
[2024-01-17] MEDS: ZYLOPRIM 300 MG PO (18:18)
[2024-01-17 18:42] LABS: Troponin I 0.027 ng/ml
[2024-01-17] MEDS: ELIQUIS 5 MG PO (19:54)
--- NOTE | 2024-01-17 21:30 | FALL ---
Description of Fall:
Responded to pt bathroom alarm. pt found on floor on bottom. Pt stated he lost his baance, denies hitting head. VSS 96/57, HR 64, RR 22, temp 97.6. Pt assisted to stand, able to walk back to the bed with walker. Pt AAOX3, able to make needs known.
JOHNNY Avelar at beside, no new orders obtained.
Injuries Noted:
Skin tear on L knee, L elbow, L shoulder, and L Hip. See wound documentation.
Action Taken:
Bed alarm applied. Pt reeducated information technology analyst triana.
Name of Provider Notified: JOHNNY Avelar
--- NOTE | 2024-01-17 23:00 | W.PN.UPDATE ---
Update Note
Progress Note Update
21:35 Patient had unwitnessed fall, patient stated that he tripped over when he was trying to get out of bed reaching to his walker.
On exam, patient is alert and oriented x 3. Denies hitting his head. LT knee skin tear, LT elbow skin tear and LT shoulder abrasion noted during the exam. Sandra blurred of vision, dizziness or any other symptoms. Neck, BUE, and BLE with FROM,
Denies pain. Neuro check started per protocol and bed alarm placed.
CLEANER AND TRIMMER [id number]
Patient passed out for few second when he was trying to use the urinal out of the bed with the assistance of the nurse. Patient was assisted back to bed. BS 75, BP 117/65, hr 82, RR 18, temp 97.7, SPO2 99%. Patient is alert and oriented x3 by the
time that CLEANER AND TRIMMER team arrived to the room, Denied SOB and chest pain.
EKG with V paced rhythm, Stat lab ordered, will start orthostatic vital signs.
[2024-01-18] VITALS (10 sets, daily range): BP systolic 94–117; BP diastolic 59–69; PULSE 62–73; BMI 21.7
[2024-01-18 00:29] LABS: Troponin I 0.032 ng/ml
[2024-01-18 04:00] LABS: Glucose - Point of Care 75 mg/dl (70-99)
[2024-01-18 04:36] LABS: % Basophils 1.1 % (0-2); % Eosinophils 2.8 % (0-6); % Immature Granulocytes 0.5 % (0-0.5); % Lymphocytes 17.9 % (20.5-51.1); % Monocytes 8.3 % (1.7-9.3); % Neutrophils 69.4 % (42.2-75.2); Absolute Basophils 0.1 10^3/uL (0-0.2); Absolute Eosinophils 0.2 10^3/uL (0-0.7); Absolute Lymphocytes 1.1 10^3/uL (1.2-3.4); Absolute Monocytes 0.5 10^3/uL (0.1-0.6); Absolute Neutrophils 4.3 10^3/uL (1.4-6.5); Hematocrit 38.9 % (39.0-52.0); Hemoglobin 13.8 g/dL (13.0-18.0); Mean Corp Hgb Conc. 35.5 g/dL (33.0-37.0); Mean Corpuscular Hgb 30.7 pg (27.0-31.0); Mean Corpuscular Volume 86.6 fL (80.0-94.0); Mean Platelet Volume 10.4 fL (7.4-10.4); Nucleated Red Blood Cells % 0 % (-); Platelet Count 177 10^3/uL (130-400); Red Blood Cell Count 4.49 10^6/uL (4.70-6.10); White Blood Cell Count 6.2 10^3/uL (4.8-10.8)
--- NOTE | 2024-01-18 04:37 | RR ---
A Rapid Response was called on this patient, please see Rapid Response form.
Pt assisted with two RN's to stand at bedside to urinate in urinal. Pt lost consciousness and became limp. Pt put in bed and woke up but began heaving. Pt eventually came to and states he is 'ok but feels dizzy'. BP 117/65 HR 82 O2 100% on RA. BS
75. EKG V-paced. Labs drawn early, PARTY PLAN SALESPERSON instructed pt to no longer get out of bed. Orthostatic vital signs ordered.
[2024-01-18 04:48] LABS: ALT (SGPT) 39 U/L (0-50); AST (SGOT) 49 U/L (17-59); Albumin 4.5 g/dl (3.5-5.0); Alkaline Phosphatase 100 U/L (38-126); Blood Urea Nitrogen 27 mg/dl (9-20); Calcium 10.3 mg/dl (8.4-10.2); Carbon Dioxide 32 mmol/L (22-30); Chloride 96 mmol/L (98-107); Estimated Creatinine Clearance 51 ml/min; Glucose 76 mg/dl (70-99); Magnesium 2.1 mg/dl (1.6-2.3); Potassium 4.2 mmol/L (3.5-5.1); Sodium 140 mmol/L (135-145); Total Bilirubin 2.1 mg/dl (0.2-1.3); Total Protein 7.2 g/dl (6.3-8.2); eGFR > 60.00
[2024-01-18 05:04] LABS: NT-proBNP 5160 pg/ml; Troponin I 0.039 ng/ml
[2024-01-18 05:19] LABS: TSH Reflex To Free T4 2.81 uIU/ml (0.47-4.68)
[2024-01-18] MEDS: LASIX IV ×2 (07:43→09:05)
[2024-01-18] MEDS: PROTONIX PO (07:43)
[2024-01-18] MEDS: ELIQUIS PO (07:43)
--- NOTE | 2024-01-18 08:11 | PTCARENOTE ---
When assisted to standing position while obtaining orthostatic BP, patient feeling faint, laid in trendelendberg position. Near syncope, did not lose consciousness, able to speak w/ staff during event. Unable to complete full set of orthostatic
blood pressures, only obtained supine and sitting BP as documented. Dr. Tellez aware, at bedside now.
[2024-01-18] MEDS: ZEBETA PO (09:06)
--- NOTE | 2024-01-18 10:15 | W.PN.HOSP.TC ---
Today's Communication/Plan
-
Hold Aldactone, bisoprolol, Lasix
Echo tomorrow
Check cortisol level
PT OT
Fall precautions
Assessment / Plan
Assessment / Plan
Seen earlier . Late documentation.
Patient gave me more history today that he has a history of Gillis and stage III fibrosis of the liver. Also that he was started on diazoxide while in [place]. He denies any complaints other than feeling generally weak.
Cardiovascular system S1-S2 appreciated,
Chest clear to auscultation
Abdomen soft and nontender
Extremities no edema
Patient has chronic neuropathy of lower extremities with difficulty moving his feet
Skin with skin tear-left lateral knee, elbow, left shoulder
# Generalized weakness
Patient may likely have hypotension related symptoms causing cerebral hypoperfusion
He may be intravascularly volume depleted
He had a fall last night and was dizzy earlier today
Hold Lasix, bisoprolol and Aldactone
# Mechanical fall with skin tear left lateral knee, left elbow, left shoulder
CT scan of the head no bleed
# CHF-acute on chronic HFPEF
Clinically does not look like terribly volume overloaded
Recent chest x-ray reviewed by me
Recently treated for fluid overload and a telemetry and was in the hospital for 8 days per patient. Patient states that his legs are much better now but he has no energy
BNP 4500, 5160 today
Nonischemic myocardial injury
Hold Lasix
Hold beta-blockers, Aldactone.
Repeat echo tomorrow
# GILLIS with Stage 3 Fibrosis reported by the patient. He sees Dr Paula . He was started on Rezdiffra as OP, says stopped in [place].
This explains the dose of Aldactone that he is on right now and also that they changed calcium channel blockers to a beta-nathanael.
# 1 episode of hypoglycemia where his sugar dropped to 40s several months ago. Patient was placed on diazoxide, by a physician in [place] and was taken off after MRI.
MRI was done on 12/22/2023 showed bilateral pleural effusion more on left with associated atelectasis and thickening of the region of the LIS. Moderate fluid in the perihepatic site that extends to the right paracolic gutter and perisplenic area.
Liver of increased size with homogeneous parenchymal density without evidence of clear focalities in progress. Intra and extrahepatic bile ducts not dilated. Spleen normal. Pancreas within limits. No specific areas with pathological enhancement
or restriction of proton diffusivity. Regular thickness morphology and adrenal signal. Kidneys within normal limits with some bilateral renal cyst formation
Patient has a Dexcom now.
No more hypoglycemic episodes per patient
# Paroxysmal atrial fibrillation-continue bisoprolol, Eliquis. Patient states his diltiazem was discontinued in [place].
# Coronary artery disease with history of stent ,coronary artery calcification. On Eliquis. Unclear why he is not on statin
# History of pacemaker placement with revision 09/05/2023
# Gout-on Zyloric
# Enlarged prostate with history of TURP
# Anemia-NOS
# Sleep apnea
# History of pancreatitis
# Bilateral lower extremity neuropathy-chronic ambulatory dysfunction uses a walker
# History of complex lobulated cyst with calcification in the left kidney
# DVT Prophylaxis- Eliquis
# CODE STATUS-full code
Discussed with nursing at bedside
Discussed with cardiology
Total time spent over 50 minutes
Anticipated Discharge: 24 - 48 hours
Subjective/Interval History
-
Date of Service: January 18, 2024
Objective Data
-
Labs:
Laboratory Results
01/18/24
04:22
WBC 6.2
Hgb 13.8
Hct 38.9 L
Plt Count 177
Sodium 140
Potassium 4.2
Chloride 96 L
Carbon Dioxide 32 H
BUN 27 H
Creatinine 1.1
Glucose 76
Calcium 10.3 H
Total Bilirubin 2.1 H
AST 49
ALT 39
Alkaline Phosphatase 100
Vital Signs:
Vital Signs
Temp Pulse Resp BP Pulse Ox
97.6 F 63 14 112/65 98
01/18/24 07:10 01/18/24 07:59 01/18/24 07:10 01/18/24 07:59 01/18/24 07:10
I&O
01/17/24 01/18/24 01/19/24
06:59 06:59 06:59
Intake Total 240 / 240 480 / 480
Output Total 350 / 350
Balance 240 / 240 130 / 130
[2024-01-18] MEDS: ELIQUIS 5 MG PO ×2 (10:19→19:34)
[2024-01-18] MEDS: PROTONIX 40 MG PO (10:19)
--- NOTE | 2024-01-18 10:37 | W.PN.CD ---
Today's Communication / Plan
-
hold diuresis
echo and nuclear stress in AM
Impression / Plan
-
73 yo male with PMH of CAD, s/p OM stent in 1999, permanent A fib on eliquis, MDT PPM is admitted with weakness, dizziness, GIBBONS. He was in [place] over the summer. He had a few issues while there. Sounds like in beginning of summer, may have had
hypoglycemic seizure. Then, later in summer, sounds like was admitted with heart failure, and his diltiazem was changed to bystolic, and aldactone was added.
# Suspected HF, type unknown
-meds were changed to GDMT in [place], suspicious for reduced EF; however, he was also diagnoses with Stage III fibrosis of liver and GILLIS (so lasix/aldactone/beta nathanael regimen may be in this setting
-he had a fall last night; he thinks mechanical, but there was also concern for syncope
-hold diuretics today
# Dizziness, GIBBONS
-echo and nuclear stress tomorrow
# CAD, s/p OM stent 1999
-last cath stable 2009
-given above sxs: nuclear stress tomorrow
-not on ASA since on eliquis for A fib
# Permanent A fib
-cont beta nathanael
-cont eliquis 5mg bid
# s/p PPM
-trend tele: stable
Physical Exam
Vital Signs/Labs
Vital Signs
Temp Pulse Resp BP Pulse Ox
97.6 F 63 14 112/65 98
01/18/24 07:10 01/18/24 07:59 01/18/24 07:10 01/18/24 07:59 01/18/24 07:10
01/17/24 01/18/24 01/19/24
06:59 06:59 06:59
Actual Weight 61.037 kg 60.827 kg
01/18/24 04:22
01/18/24 04:22
Magnesium 2.1 mg/dl (1.6-2.3) 01/18/24 04:22
01/17/24 01/18/24
11:50 04:22
Anm-Z-Ewvupuccvxa Pept 4500 5160
LAB Results
01/17/24 01/17/24 01/17/24
11:50 16:18 17:16
Troponin I 0.024 Cancelled Cancelled
01/17/24 01/17/24 01/17/24
18:12 22:18 23:54
Troponin I 0.027 Cancelled 0.032
01/18/24
04:22
Troponin I 0.039 H*
Physical Exam
Constitutional: No acute distress and Comfortable
EENT: Moist mucous membranes
Cardiovascular: Rhythm & rate is regular, Pedal edema is absent, JVD pressure is normal and Systolic murmur absent
Respiratory: Respiratory effort normal and Lungs clear to auscul.
Neuro/Psych: AO x 3
Data Reviewed
-
Date of Service: January 18, 2024
EKG: Other (Tele: A fib, V paced 60)
Labs: Labs Reviewed by me
[2024-01-18 10:59] LABS: Troponin I 0.035 ng/ml
--- NOTE | 2024-01-18 13:23 | CM ---
Patient seen bedside with son and , initial assessment completed. Patient resides with his and son in a single story home, no steps to enter. Patient reports having a walker and rollator at home, only uses rollator when out in the
community. Patient reports VN in the past, does not want VN services again. Patient denies SNF history. Patient PCP Dr. Jose Avalos, pharmacy [facility], confirms prescription coverage. CM reviewed PARIKH, refused to sign, placed in chart,
patient provided with copy. CM will continue to follow for all discharge planning needs, watch for PT evals.
Plan; home no needs likely.
[2024-01-18] MEDS: ZYLOPRIM 300 MG PO (16:07)
[2024-01-19 03:39] VITALS: BP 101/68
[2024-01-19 06:00] VITALS: BMI 21.5
[2024-01-19 07:05] VITALS: BP 92/61
[2024-01-19 08:05] LABS: Hematocrit 37.9 % (39.0-52.0); Hemoglobin 13.1 g/dL (13.0-18.0); Mean Corp Hgb Conc. 34.6 g/dL (33.0-37.0); Mean Corpuscular Hgb 30.5 pg (27.0-31.0); Mean Corpuscular Volume 88.3 fL (80.0-94.0); Mean Platelet Volume 10.9 fL (7.4-10.4); Platelet Count 198 10^3/uL (130-400); Red Blood Cell Count 4.29 10^6/uL (4.70-6.10); White Blood Cell Count 6.5 10^3/uL (4.8-10.8)
[2024-01-19 09:09] LABS: Blood Urea Nitrogen 28 mg/dl (9-20); Calcium 10.1 mg/dl (8.4-10.2); Carbon Dioxide 26 mmol/L (22-30); Chloride 96 mmol/L (98-107); Estimated Creatinine Clearance 55 ml/min; Glucose 59 mg/dl (70-99); Potassium 4.3 mmol/L (3.5-5.1); Sodium 138 mmol/L (135-145); eGFR > 60.00
[2024-01-19] MEDS: LEXISCAN 0.4 MG IV (10:59)
[2024-01-19] MEDS: AMINOPHYLLINE 75 MG IV (11:25)
[2024-01-19] MEDS: PROTONIX 40 MG PO (12:41)
[2024-01-19] MEDS: ELIQUIS 5 MG PO ×2 (12:42→20:06)
[2024-01-19 12:59] VITALS: BP 114/72; BP 95/52; PULSE 60; PULSE 62
--- NOTE | 2024-01-19 13:02 | PTCARENOTE ---
Back from testing in cardiac services. Remains 100% V paced, HR 60s. Attempted to obtain orthostatic BP, only able to obtain supine and sitting BP d/t patient beginning to feel faint. Placed in Trendelenburg position. BP reassessed, 94/55. Reports
feeling better within a few minutes. at bedside, updated on plan.
[2024-01-19] MEDS: ZYLOPRIM 300 MG PO (14:36)
[2024-01-19 14:54] LABS: Cortisol, Random 29.3 ug/dl
--- NOTE | 2024-01-19 15:10 | CM ---
Home no needs at discharge.
Plan; Home no needs.
--- NOTE | 2024-01-19 15:28 | W.PN.HOSP.TC ---
Addendum entered and electronically signed by Bailey Paul MD, Resident 01/20/24 09:24:
note under Internal Medicine Specialty
Original Note:
Today's Communication/Plan
-
.
Assessment / Plan
Assessment / Plan
Assessment
Acute on chronic HFpEF
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
Mechanical fall
Conditions present prior to admission
Paroxysmal atrial fibrillation
CAD s/p stent 1999
History of pacemaker placement with revision 09/05/2023
Gout
Enlarged prostate with history of TURP
Anemia
Obstructive sleep apnea
History of pancreatitis
B/L extremity neuropathy
History of complex sleep liters cyst with calcification left kidney
Plan
#Acute on chronic HFpEF
-Echo 01/19/2024 with left ventricular ejection fraction 55 to 60%, concentric left ventricular hypertrophy
-Recently treated for fluid overload and Was hospitalized for 8 days per patient.
-Consider restarting Beta-blockers, spironolactone and Lasix
# Mechanical fall with skin tear left lateral knee, left elbow, left shoulder
-CT scan of the head no bleed
#GILLIS with Stage 3 Fibrosis reported by the patient.
-He sees Dr Paula . He was started on Rezdiffra as OP, says stopped in [place].
#1episode of hypoglycemia where his sugar dropped to 40s several months ago. Patient was placed on diazoxide, by a physician in [place] and was taken off after MRI.
#Paroxysmal atrial fibrillation-
-continue bisoprolol
-Anticoagulation with Eliquis.
# Coronary artery disease with history of stent ,coronary artery calcification. On Eliquis. Unclear why he is not on statin
# History of pacemaker placement with revision 09/05/2023
# Gout-on Zyloric
# Enlarged prostate with history of TURP
# Anemia-NOS
# Sleep apnea
# History of pancreatitis
# Bilateral lower extremity neuropathy-chronic ambulatory dysfunction uses a walker
# History of complex lobulated cyst with calcification in the left kidney
CODE STATUS-full code
DVT Prophylaxis- Eliquis
Anticipated Discharge: 24 - 48 hours
Subjective/Interval History
-
Date of Service: January 19, 2024
Objective Data
-
Labs:
Laboratory Results
01/19/24
07:13
WBC 6.5
Hgb 13.1
Hct 37.9 L
Plt Count 198
Sodium 138
Potassium 4.3
Chloride 96 L
Carbon Dioxide 26
BUN 28 H
Creatinine 1.0
Glucose 59 L
Calcium 10.1
Vital Signs:
Vital Signs
Temp Pulse Resp BP Pulse Ox
97.6 F 62 18 114/72 97
01/19/24 12:59 01/19/24 12:59 01/19/24 12:59 01/19/24 12:59 01/19/24 12:59
I&O
01/18/24 01/19/24 01/20/24
06:59 06:59 06:59
Intake Total 240 / 240 1820 / 1820
Output Total 350 / 350
Balance 240 / 240 1470 / 1470
Review of Systems
-
All other systems: Reviewed and negative (Except as documented)
Physical Exam
-
General: Well Developed, Well Nourished and No Apparent Distress
Respiratory: Clear to Auscultation; Negative Wheezes or Rales
Cardiac: Regular Rhythm and S1/S2
GI: Soft and Nontender
Musculoskeletal: No Edema
Neuro: Awake, Alert, Oriented and AO x 3
Psych: Calm
--- NOTE | 2024-01-19 15:38 | W.PN.UPDATE ---
Update Note
Progress Note Update
I personally performed a history and physical exam of the patient and discussed management with the resident. I reviewed the resident's note and agree with the documented findings and plan of care HPI/CC except changes in my documentation.
ECHO- Normal left ventricular systolic function.
Concentric left ventricular hypertrophy.
Mild mitral regurgitation.
Mild aortic regurgitation.
Compared to the previous echo 02/07/23 there is no significant change.
Cardiovascular system S1-S2 appreciated
Chest clear to auscultation
Abdomen soft and nontender
Extremities no edema
# Generalized weakness
Patient may likely have hypotension related symptoms causing cerebral hypoperfusion
He may be intravascularly volume depleted
Follow over the weekend
Consider restarting beta-blockers, Lasix and Aldactone HI much lower dose
Lasix 20 mg, Aldactone 25 mg? And slowly titrate up
ECHO as above
Stress test no reversible ischemia per ccards
# Mechanical fall with skin tear left lateral knee, left elbow, left shoulder
CT scan of the head no bleed
# CHF-acute on chronic HFPEF
Clinically does not look like volume overloaded
Recent chest x-ray reviewed by me
Recently treated for fluid overload and a telemetry and was in the hospital for 8 days per patient. Patient states that his legs are much better now but he has no energy
BNP 4500, 5160 today
Nonischemic myocardial injury
Consider restarting beta-blockers, Lasix and Aldactone HI much lower dose
Lasix 20 mg, Aldactone 25 mg? And slowly titrate up
ECHO as above
# GILLIS with Stage 3 Fibrosis reported by the patient. He sees Dr Paula . He was started on Rezdiffra as OP, says stopped in [place].
This explains the dose of Aldactone that he is on right now and also that they changed calcium channel blockers to a beta-nathanael.
# 1 episode of hypoglycemia where his sugar dropped to 40s several months ago. Patient was placed on diazoxide, by a physician in [place] and was taken off after MRI.
MRI was done on 12/22/2023 showed bilateral pleural effusion more on left with associated atelectasis and thickening of the region of the LIS. Moderate fluid in the perihepatic site that extends to the right paracolic gutter and perisplenic area.
Liver of increased size with homogeneous parenchymal density without evidence of clear focalities in progress. Intra and extrahepatic bile ducts not dilated. Spleen normal. Pancreas within limits. No specific areas with pathological enhancement
or restriction of proton diffusivity. Regular thickness morphology and adrenal signal. Kidneys within normal limits with some bilateral renal cyst formation
Patient has a Dexcom now.
No more hypoglycemic episodes per patient
# Paroxysmal atrial fibrillation-continue bisoprolol, Eliquis. Patient states his diltiazem was discontinued in [place].
# Coronary artery disease with history of stent ,coronary artery calcification. On Eliquis. Unclear why he is not on statin
# History of pacemaker placement with revision 09/05/2023
# Gout-on Zyloric
# Enlarged prostate with history of TURP
# Anemia-NOS
# Sleep apnea
# History of pancreatitis
# Bilateral lower extremity neuropathy-chronic ambulatory dysfunction uses a walker
# History of complex lobulated cyst with calcification in the left kidney
# DVT Prophylaxis- Eliquis
# CODE STATUS-full code
Discussed with cardiology
[2024-01-19 15:45] VITALS: BP 121/70
--- NOTE | 2024-01-19 15:58 | W.PN.CD ---
Today's Communication / Plan
-
restart lasix 40 mg and spironolactone 50 mg
Impression / Plan
-
73 yo male with PMH of CAD, s/p OM stent in 1999, permanent A fib on eliquis, MDT PPM is admitted with weakness, dizziness, GIBBONS. He was in [place] over the summer. He had a few issues while there. Sounds like in beginning of summer, may have had
hypoglycemic seizure. Then, later in summer, sounds like was admitted with heart failure, and his diltiazem was changed to bystolic, and aldactone was added.
# Suspected HF, type unknown
-meds were changed to GDMT in [place], suspicious for reduced EF; however, he was also diagnoses with Stage III fibrosis of liver and GILLIS (so lasix/aldactone/beta nathanael regimen may be in this setting
-he had a fall last night; he thinks mechanical, but there was also concern for syncope
-will restart lasix at 40 mg and spironolactone at 50 mg
-100% V paced rhythm. if LVEF is dropping then consider upgrade to BiV
# Dizziness, GIBBONS
-echo below
- nuc showed chronic infarct
# CAD, s/p OM stent 1999
-last cath stable 2009
-given above sxs: nuclear stress today
-not on ASA since on eliquis for A fib
# Persistent A fib/ flutter
-May be contributing to the CHF. Dual chamber PPM included atrial lead - AF may have become permanent or persistent afterwards.
-2020 was sinus / atrial paced rhythm and 2022 onwards EKGs are showing AF.
-cont beta nathanael
-cont eliquis 5mg bid
# s/p PPM
-trend tele: stable
TTE: CONCLUSIONS
Normal left ventricular systolic function.
Concentric left ventricular hypertrophy.
Mild mitral regurgitation.
Mild aortic regurgitation.
Compared to the previous echo 02/07/23 there is no significant change.
Subjective: chronic diarrhea but dizziness improved
Physical Exam
Vital Signs/Labs
Vital Signs
Temp Pulse Resp BP Pulse Ox
97.7 F 62 18 121/70 97
01/19/24 15:45 01/19/24 15:45 01/19/24 15:45 01/19/24 15:45 01/19/24 15:45
01/18/24 01/19/24 01/20/24
06:59 06:59 06:59
Actual Weight 134 lb 9 oz 133 lb 5 oz
01/19/24 07:13
01/19/24 07:13
Magnesium 2.1 mg/dl (1.6-2.3) 01/18/24 04:22
01/17/24 01/18/24
11:50 04:22
Xck-P-Pbmztzrzhfz Pept 4500 5160
LAB Results
01/17/24 01/17/24 01/17/24
11:50 16:18 17:16
Troponin I 0.024 Cancelled Cancelled
01/17/24 01/17/24 01/17/24
18:12 22:18 23:54
Troponin I 0.027 Cancelled 0.032
01/18/24 01/18/24 01/18/24
04:22 09:33 15:42
Troponin I 0.039 H* 0.035 H* 0.030
01/18/24
22:00
Troponin I Cancelled
Physical Exam
Constitutional: No acute distress
EENT: Anicteric
Cardiovascular: Rhythm & rate is regular (paced)
Respiratory: Respiratory effort normal and Lungs clear to auscul.
GI: Soft
Neuro/Psych: AO x 3
Data Reviewed
-
Date of Service: January 19, 2024
EKG: Tracing Personally Visualized and interpreted (paced)
Echo: Report Reviewed by me
X-Ray/CT/US/MRI/NUC/PET: Image Personally Visualized and interpreted
Labs: Labs Reviewed by me
[2024-01-19] MEDS: LASIX 40 MG PO (18:16)
[2024-01-19 19:41] VITALS: BP 97/59; BP 99/60; PULSE 61
[2024-01-19 23:09] VITALS: BP 130/56
[2024-01-20] VITALS (8 sets, daily range): BP systolic 85–141; BP diastolic 55–85; PULSE 62–65; BMI 21.5
[2024-01-20] MEDS: LASIX 40 MG PO (07:35)
[2024-01-20] MEDS: ELIQUIS 5 MG PO ×2 (07:35→20:37)
[2024-01-20] MEDS: PROTONIX 40 MG PO (07:35)
--- NOTE | 2024-01-20 08:11 | W.PN.HOSP.TC ---
Addendum entered and electronically signed by Shirin Tellez MD 01/20/24 15:47:
I personally performed a history and physical exam of the patient and discussed management with the resident. I reviewed the resident's note and agree with the documented findings and plan of care HPI/CC except changes in my documentation.
ECHO- Normal left ventricular systolic function.
Concentric left ventricular hypertrophy.
Mild mitral regurgitation.
Mild aortic regurgitation.
Compared to the previous echo 02/07/23 there is no significant change.
Cardiovascular system S1-S2 appreciated
Chest clear to auscultation
Abdomen soft and nontender
Extremities no edema
# Generalized weakness
Patient may likely have hypotension related symptoms causing cerebral hypoperfusion
He may be intravascularly volume depleted
Lasix was started by cardiology at 40 mg daily. Aldactone is still on hold
ECHO as above
Stress test no reversible ischemia per ccards
# Mechanical fall with skin tear left lateral knee, left elbow, left shoulder
CT scan of the head no bleed
# CHF-acute on chronic HFPEF
Clinically does not look like volume overloaded
Recent chest x-ray reviewed by me
Recently treated for fluid overload and a telemetry and was in the hospital for 8 days per patient. Patient states that his legs are much better now but he has no energy
BNP 4500, 5160 today
Nonischemic myocardial injury
Consider restarting beta-blockers, Lasix and Aldactone HI much lower dose
Lasix 20 mg, Aldactone 25 mg? And slowly titrate up
ECHO as above
See that cardiology restarted Lasix 40 mg daily. Aldactone is still on hold
# GILLIS with Stage 3 Fibrosis reported by the patient. He sees Dr Paula . He was started on Rezdiffra as OP, says stopped in [place].
This explains the dose of Aldactone that he is on right now and also that they changed calcium channel blockers to a beta-nathanael.
His BP is not good for resuming these doses.
# 1 episode of hypoglycemia where his sugar dropped to 40s several months ago. Patient was placed on diazoxide, by a physician in [place] and was taken off after MRI.
MRI was done on 12/22/2023 showed bilateral pleural effusion more on left with associated atelectasis and thickening of the region of the LIS. Moderate fluid in the perihepatic site that extends to the right paracolic gutter and perisplenic area.
Liver of increased size with homogeneous parenchymal density without evidence of clear focalities in progress. Intra and extrahepatic bile ducts not dilated. Spleen normal. Pancreas within limits. No specific areas with pathological enhancement
or restriction of proton diffusivity. Regular thickness morphology and adrenal signal. Kidneys within normal limits with some bilateral renal cyst formation
Patient has a Dexcom now.
No more hypoglycemic episodes per patient
# Paroxysmal atrial fibrillation-continue bisoprolol, Eliquis. Patient states his diltiazem was discontinued in [place].
# Coronary artery disease with history of stent ,coronary artery calcification. On Eliquis. Unclear why he is not on statin
# History of pacemaker placement with revision 09/05/2023
# Gout-on Zyloric
# Enlarged prostate with history of TURP
# Anemia-NOS
# Sleep apnea
# History of pancreatitis
# Bilateral lower extremity neuropathy-chronic ambulatory dysfunction uses a walker
# History of complex lobulated cyst with calcification in the left kidney
# DVT Prophylaxis- Eliquis
# CODE STATUS-full code
Will wait for cardiology notes to know about the plan.
Original Note:
Today's Communication/Plan
-
Continue diuresis with Lasix
Assessment / Plan
Assessment / Plan
Assessment
Acute on chronic HFpEF
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
Mechanical fall
Conditions present prior to admission
Paroxysmal atrial fibrillation
CAD s/p stent 1999
History of pacemaker placement with revision 09/05/2023
Gout
Enlarged prostate with history of TURP
Anemia
Obstructive sleep apnea
History of pancreatitis
B/L extremity neuropathy
History of complex sleep liters cyst with calcification left kidney
Plan
#Acute on chronic HFpEF
-Echo 01/19/2024 with left ventricular ejection fraction 55 to 60%, concentric left ventricular hypertrophy
-Recently treated for fluid overload and Was hospitalized for 8 days per patient.
-Lasix 40 mg, spironolactone 50 mg.
-Midodrine 5 mg TID for blood pressure support
-Stress test with NO reversible ischemia
# Mechanical fall with skin tear left lateral knee, left elbow, left shoulder
-CT scan of the head no bleed
#GILLIS with Stage 3 Fibrosis reported by the patient.
-He sees Dr Paula . He was started on Rezdiffra as OP, says stopped in [place].
#1episode of hypoglycemia where his sugar dropped to 40s several months ago. Patient was placed on diazoxide, by a physician in [place] and was taken off after MRI.
#Paroxysmal atrial fibrillation-
-continue bisoprolol
-Anticoagulation with Eliquis.
# Coronary artery disease with history of stent ,coronary artery calcification. On Eliquis. Unclear why he is not on statin
# History of pacemaker placement with revision 09/05/2023
# Gout-on Zyloric
# Enlarged prostate with history of TURP
# Anemia-NOS
# Sleep apnea
# History of pancreatitis
# Bilateral lower extremity neuropathy-chronic ambulatory dysfunction uses a walker
# History of complex lobulated cyst with calcification in the left kidney
CODE STATUS-full code
DVT Prophylaxis- Eliquis
Anticipated Discharge: > 48 hours
Subjective/Interval History
-
Date of Service: January 20, 2024
Objective Data
-
Labs:
Laboratory Results
01/20/24
07:29
Sodium Pending
Potassium Pending
Chloride Pending
Carbon Dioxide Pending
BUN Pending
Creatinine Pending
Glucose Pending
Calcium Pending
Vital Signs:
Vital Signs
Temp Pulse Resp BP Pulse Ox
97.4 F 60 18 102/69 100
01/20/24 07:05 01/20/24 07:35 01/20/24 07:05 01/20/24 07:35 01/20/24 07:05
I&O
01/19/24 01/20/24 01/21/24
06:59 06:59 06:59
Intake Total 1820 / 1820 720 / 720
Output Total 350 / 350 500 / 500
Balance 1470 / 1470 220 / 220
Review of Systems
-
All other systems: Reviewed and negative (Except as documented)
Physical Exam
-
General: Well Developed, No Apparent Distress and Comfortable
Respiratory: Clear to Auscultation; Negative Wheezes, Rales or Rhonchi
Cardiac: Regular Rhythm and S1/S2
GI: Soft, Nontender, Nondistended and Normal Bowel Sounds
Musculoskeletal: No Edema
Neuro: Awake, Alert, Oriented and AO x 3
Psych: Calm
[2024-01-20 09:14] LABS: Blood Urea Nitrogen 24 mg/dl (9-20); Calcium 9.6 mg/dl (8.4-10.2); Carbon Dioxide 29 mmol/L (22-30); Chloride 96 mmol/L (98-107); Estimated Creatinine Clearance 55 ml/min; Glucose 74 mg/dl (70-99); Sodium 140 mmol/L (135-145); eGFR > 60.00
--- NOTE | 2024-01-20 09:15 | W.PN.CD ---
Today's Communication / Plan
-
contiinue current diuretics
monitor orthostatics.
check cost of farxiga and jardiance.
SPEP and serum free light chains. If negative then outpatient amyloid scan
Impression / Plan
-
73 yo male with PMH of CAD, s/p OM stent in 1999, permanent A fib on eliquis, MDT PPM is admitted with weakness, dizziness, GIBBONS. He was in [place] over the summer. He had a few issues while there. Sounds like in beginning of summer, may have had
hypoglycemic seizure. Then, later in summer, sounds like was admitted with heart failure, and his diltiazem was changed to bystolic, and aldactone was added.
# acuteon chronic HFpEF
-meds were changed to GDMT in [place], suspicious for reduced EF; however, he was also diagnoses with Stage III fibrosis of liver and GILLIS (so lasix/aldactone/beta nathanael regimen may be in this setting
-he had a fall last night; he thinks mechanical, . Also need to consider orhtostasis contributing
On lasix at 40 mg and spironolactone at 50 mg
With appears of LV on echo, HF and neuropathy would consider amyloid. Will order SPEP and if negative would plan for amyloid scan as outpatient.
# dizziness
- none currently . monitor orthostatics.
# CAD, s/p OM stent 1999
-last cath stable 2009
-given above sxs: nuclear stress today
-not on ASA since on eliquis for A fib
= nuclear stress with infarct and no ischmeia. Continuemedical therapy. if continued issues would consider LHC
# Persistent A fib/ flutter
-May be contributing to the CHF. Dual chamber PPM included atrial lead - AF may have become permanent or persistent afterwards.
-2020 was sinus / atrial paced rhythm and 2022 onwards EKGs are showing AF.
-cont beta nathanael
-cont eliquis 5mg bid
# s/p PPM
-trend tele: stable
TTE: CONCLUSIONS
Normal left ventricular systolic function.
Concentric left ventricular hypertrophy.
Mild mitral regurgitation.
Mild aortic regurgitation.
Compared to the previous echo 02/07/23 there is no significant change.
Subjective: chronic diarrhea but dizziness improved
Physical Exam
Vital Signs/Labs
Vital Signs
Temp Pulse Resp BP Pulse Ox
97.4 F 60 18 102/69 100
01/20/24 07:05 01/20/24 07:35 01/20/24 07:05 01/20/24 07:35 01/20/24 07:05
01/19/24 01/20/24 01/21/24
06:59 06:59 06:59
Actual Weight 60.47 kg 60.47 kg
01/19/24 07:13
01/20/24 07:29
Magnesium 2.1 mg/dl (1.6-2.3) 01/18/24 04:22
01/17/24 01/18/24
11:50 04:22
Kuv-G-Xutexosbldh Pept 4500 5160
LAB Results
01/17/24 01/17/24 01/17/24
11:50 16:18 17:16
Troponin I 0.024 Cancelled Cancelled
01/17/24 01/17/24 01/17/24
18:12 22:18 23:54
Troponin I 0.027 Cancelled 0.032
01/18/24 01/18/24 01/18/24
04:22 09:33 15:42
Troponin I 0.039 H* 0.035 H* 0.030
01/18/24
22:00
Troponin I Cancelled
Physical Exam
Constitutional: No acute distress
Cardiovascular: Rhythm & rate is regular
Respiratory: Respiratory effort normal
GI: Soft
Neuro/Psych: Alert
Data Reviewed
-
Date of Service: January 20, 2024
Medical Decision Making: Reviewed Test Results
Echo: Report Reviewed by me
Medical Tests (PFT, Pathology etc): Report Reviewed by me
Labs: Labs Reviewed by me
--- NOTE | 2024-01-20 14:39 | CM ---
Patient switched to inpatient, IMM provided to patient, signed and placed on chart. Plan is to home with spouse, patient was offered visiting nurse services again but patient declined.
Plan; Home with spouse no needs.
[2024-01-20] MEDS: ZYLOPRIM 300 MG PO (15:30)
[2024-01-21] VITALS (8 sets, daily range): BP systolic 66–138; BP diastolic 38–83; PULSE 61–110; BMI 21.7
[2024-01-21] MEDS: ELIQUIS 5 MG PO ×2 (08:28→19:59)
[2024-01-21] MEDS: LASIX 40 MG PO (08:28)
[2024-01-21] MEDS: PROTONIX 40 MG PO (08:28)
[2024-01-21] MEDS: ZEBETA 1.25 MG PO (08:29)
--- NOTE | 2024-01-21 10:24 | W.PN.HOSP.TC ---
Addendum entered and electronically signed by Shirin Tellez MD 01/21/24 14:47:
He was seen earlier today . Late documentation
I personally performed a history and physical exam of the patient and discussed management with the resident. I reviewed the resident's note and agree with the documented findings and plan of care HPI/CC
Discussed with cardiology multiple times today
Patient is feeling better but states that he feels tired when he walks around too long.
Vital signs stable
Blood pressures are relatively stable
Exam-does not look volume overloaded.
Per discussion with cardiology will change bisoprolol to metoprolol which is less potent on blood pressure
Hold Aldactone
Dr. Pope discussed with GI patient does not have decompensated liver disease therefore Aldactone does not needed at this point. Patient tells me that it was started by Dr. Enamorado.
In any case his blood pressure was not tolerating all that medicines at this point. Therefore we will move forward 40 mg of Lasix and metoprolol XL 12.5 mg daily
Rest of the medication changes can be made as outpatient
I have also restarted his Rezdiffra. Watch him on all this med changes today and discharge tomorrow as long as he is stable.
Original Note:
Today's Communication/Plan
-
.
Assessment / Plan
Assessment / Plan
Assessment
Acute on chronic HFpEF
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
Mechanical fall
Diarrhea
Conditions present prior to admission
Paroxysmal atrial fibrillation
CAD s/p stent 1999
History of pacemaker placement with revision 09/05/2023
Gout
Enlarged prostate with history of TURP
Anemia
Obstructive sleep apnea
History of pancreatitis
B/L extremity neuropathy
History of complex sleep liters cyst with calcification left kidney
Plan
#Acute on chronic HFpEF
-Echo 01/19/2024 with left ventricular ejection fraction 55 to 60%, concentric left ventricular hypertrophy
-Recently treated for fluid overload and Was hospitalized for 8 days per patient.
-Lasix 40 mg, currently holding spironolactone 50 mg.
-Stress test with NO reversible ischemia
# Mechanical fall with skin tear left lateral knee, left elbow, left shoulder
-CT scan of the head no bleed
#GILLIS with Stage 3 Fibrosis reported by the patient.
-He sees Dr Paula . He was started on Rezdiffra as OP, says stopped in [place].
#1episode of hypoglycemia where his sugar dropped to 40s several months ago. Patient was placed on diazoxide, by a physician in [place] and was taken off after MRI.
#Paroxysmal atrial fibrillation-
-hold bisoprolol due to lower blood pressures
-Anticoagulation with Eliquis.
# Diarrhea
Check stool cultures, C. difficile pending
# Coronary artery disease with history of stent ,coronary artery calcification. On Eliquis. Unclear why he is not on statin
# History of pacemaker placement with revision 09/05/2023
# Gout-on Zyloric
# Enlarged prostate with history of TURP
# Anemia-NOS
# Sleep apnea
# History of pancreatitis
# Bilateral lower extremity neuropathy-chronic ambulatory dysfunction uses a walker
# History of complex lobulated cyst with calcification in the left kidney
CODE STATUS-full code
DVT Prophylaxis- Eliquis
Anticipated Discharge: Within 24 hours
Subjective/Interval History
-
Patient reports diarrhea improving. At bedside today, he denies shortness of breath, palpitations.
Objective Data
-
Vital Signs:
Vital Signs
Temp Pulse Resp BP Pulse Ox
98.8 F 61 18 124/71 97
01/21/24 08:04 01/21/24 08:04 01/21/24 08:04 01/21/24 08:04 01/21/24 08:04
I&O
01/20/24 01/21/24 01/22/24
06:59 06:59 06:59
Intake Total 720 / 720 1140 / 1140
Output Total 500 / 500 550 / 550
Balance 220 / 220 590 / 590
Review of Systems
-
All other systems: Reviewed and negative (Except as documented)
Physical Exam
-
General: No Apparent Distress and Comfortable
Respiratory: Clear to Auscultation; Negative Wheezes, Rales or Rhonchi
Cardiac: S1/S2
GI: Soft, Nontender, Nondistended and Normal Bowel Sounds
Musculoskeletal: No Edema
Neuro: Nonfocal/Grossly Intact
Psych: Calm
--- NOTE | 2024-01-21 10:59 | W.PN.CD ---
Today's Communication / Plan
-
Continue on Lasix. Will remain off spironolactone for now monitor blood pressures and monitor renal function.
Will need weekly labs for 3 weeks postdischarge to monitor renal function and potassium
We will screen for amyloid. Screening labs sent. If these are unremarkable and amyloid scan will be arranged as an outpatient.
Impression / Plan
-
73 yo male with PMH of CAD, s/p OM stent in 1999, permanent A fib on eliquis, MDT PPM is admitted with weakness, dizziness, GIBBONS. He was in [place] over the summer. He had a few issues while there. Sounds like in beginning of summer, may have had
hypoglycemic seizure. Then, later in summer, sounds like was admitted with heart failure, and his diltiazem was changed to bystolic, and aldactone was added.
# acute on chronic HFpEF
-meds were changed to GDMT in [place], suspicious for reduced EF; however, he was also diagnoses with Stage III fibrosis of liver and GLILIS (so lasix/aldactone/beta nathanael regimen may be in this setting
-he had a fall last night; he thinks mechanical, . Also need to consider orhtostasis contributing
On lasix at 40 mg spironolactone held . was on 100mg after return from [place]. . Patient had not been on diuretic last spring. He had mainly been on diltiazem and Eliquis for his meds. Patient likely with lower blood pressures with combination
of Lasix as well as spironolactone at 100 mg a day. Now just back on Lasix. Would favor just keeping on Lasix for now and monitoring volume status. Will not restart spironolactone. Will need to monitor potassium.
-Although Farxiga and Jardiance can be used in heart failure with preserved ejection fraction. Patient had significant hypoglycemia as part of his issue when he was hospitalized in [place] sounds like that was part of his presentation. Considering
this as well as his GI issues will not start these medications on this patient.
With appears of LV on echo, HF and neuropathy would consider amyloid. Blood test to screen for myeloma/amyloid ordered 01/20/24 and if negative would plan for amyloid scan as outpatient.
# dizziness
- none currently . monitor orthostatics.
# CAD, s/p OM stent 1999
-last cath stable 2009
-given above sxs: nuclear stress today
-not on ASA since on eliquis for A fib
= nuclear stress with infarct and no ischmeia. Continuemedical therapy. if continued issues would consider LHC
# Persistent A fib/ flutter
-May be contributing to the CHF. Dual chamber PPM included atrial lead - AF may have become permanent or persistent afterwards.
-2020 was sinus / atrial paced rhythm and 2022 onwards EKGs are showing AF.
-. Previously had been maintained on diltiazem but then was changed to Bystolic on recent hospitalization in [place]. Held for lower blood pressures. Will continue to hold and monitor rates of A-fib
-cont eliquis 5mg bid
# s/p PPM
-trend tele: stable
TTE: CONCLUSIONS
Normal left ventricular systolic function.
Concentric left ventricular hypertrophy.
Mild mitral regurgitation.
Mild aortic regurgitation.
Compared to the previous echo 02/07/23 there is no significant change.
Subjective: chronic diarrhea but dizziness improved
Physical Exam
Vital Signs/Labs
Vital Signs
Temp Pulse Resp BP Pulse Ox
98.8 F 61 18 124/71 97
01/21/24 08:04 01/21/24 08:04 01/21/24 08:04 01/21/24 08:04 01/21/24 08:04
01/20/24 01/21/24 01/22/24
06:59 06:59 06:59
Actual Weight 60.47 kg 60.923 kg
01/19/24 07:13
01/20/24 07:29
Magnesium 2.1 mg/dl (1.6-2.3) 01/18/24 04:22
01/17/24 01/18/24
11:50 04:22
Yvl-X-Vzyoiqcizwi Pept 4500 2060
LAB Results
01/18/24 01/18/24 01/18/24
09:33 15:42 22:00
Troponin I 0.035 H* 0.030 Cancelled
Physical Exam
Constitutional: No acute distress
Cardiovascular: Rhythm/rate is irregular
Respiratory: Respiratory effort normal
GI: Soft and Non tender
Neuro/Psych: Alert
Data Reviewed
-
Date of Service: January 21, 2024
Medical Decision Making: Reviewed Test Results
Medical Tests (PFT, Pathology etc): Report Reviewed by me
Labs: Labs Reviewed by me
--- NOTE | 2024-01-21 11:55 | CM ---
Home no needs.
Plan; Home no needs.
[2024-01-21] MEDS: ZYLOPRIM 300 MG PO (16:52)
[2024-01-22] VITALS (13 sets, daily range): BP systolic 93–117; BP diastolic 58–72; BMI 23.0
--- NOTE | 2024-01-22 08:10 | W.PN.CD ---
Today's Communication / Plan
-
However patient with significant orthostasis . Tried to have him stand 01/22/24 so I would observe him walk but he had decreased level of responsiveness shortly after standing so he was quickly put back in bed with resolution of symptoms. Challenging
to assess volume status
- hold lasix .
- will give back some IVF
- stop BB ( note afib rates are fine . patient just paced.
- midodrine to help with orthostatic symptoms
- plan for right and left heart cath (assess volume status and cardaic output)
Impression / Plan
-
73 yo male with PMH of CAD, s/p OM stent in 1999, permanent A fib on eliquis, MDT PPM is admitted with weakness, dizziness, GIBBONS. He was in [place] over the summer. He had a few issues while there. Sounds like in beginning of summer, may have had
hypoglycemic seizure. Then, later in summer, sounds like was admitted with heart failure, and his diltiazem was changed to bystolic, and aldactone was added.
# acute on chronic HFpEF
-meds were changed to GDMT in [place], suspicious for reduced EF; however, he was also diagnoses with Stage III fibrosis of liver and GILLIS (so lasix/aldactone/beta nathanael regimen may be in this setting
-he had a fall last night; he thinks mechanical, . Also need to consider orhtostasis contributing
On lasix at 40 mg spironolactone held . was on 100mg after return from [place]. . Patient had not been on diuretic last spring. He had mainly been on diltiazem and Eliquis for his meds. Patient likely with lower blood pressures with combination
of Lasix as well as spironolactone at 100 mg a day. Now just back on Lasix. Plan was for lasix only.
However patient with significant orthostasis . Tried to have him stand 01/22/24 so I would observe him walk but he had decreased level of responsiveness shortly after standing so he was quickly put back in bed with resolution of symptoms. Challenging
to assess volume status
- hold lasix .
- will give back some IVF
- stop BB ( note afib rates are fine . patient just paced.
- midodrine to help with orthostatic symptoms
- plan for right and left heart cath
-Although Farxiga and Jardiance can be used in heart failure with preserved ejection fraction. Patient had significant hypoglycemia as part of his issue when he was hospitalized in [place] sounds like that was part of his presentation. Considering
this as well as his GI issues will not start these medications on this patient.
-
With appears of LV on echo, HF and neuropathy would consider amyloid. Blood test to screen for myeloma/amyloid ordered 01/20/24 and if negative would plan for amyloid scan as outpatient.
#orthostatic hypotension. symptomsatic today
Plan as noted above
# CAD, s/p OM stent 1999
-last cath stable 2009
-given above sxs: nuclear stress today
-not on ASA since on eliquis for A fib
= nuclear stress with infarct and no ischmeia. Continuemedical therapy. if continued issues would consider LHC
# Persistent A fib/ flutter
-May be contributing to the CHF. Dual chamber PPM included atrial lead - AF may have become permanent or persistent afterwards.
-2020 was sinus / atrial paced rhythm and 2022 onwards EKGs are showing AF.
-. Previously had been maintained on diltiazem but then was changed to Bystolic on recent hospitalization in [place]. Held for lower blood pressures. Will continue to hold and monitor rates of A-fib
-cont eliquis 5mg bid
# s/p PPM
-trend tele: stable
TTE: CONCLUSIONS
Normal left ventricular systolic function.
Concentric left ventricular hypertrophy.
Mild mitral regurgitation.
Mild aortic regurgitation.
Compared to the previous echo 02/07/23 there is no significant change.
Subjective: chronic diarrhea but dizziness improved
Physical Exam
Vital Signs/Labs
Vital Signs
Temp Pulse Resp BP Pulse Ox
98.3 F 66 16 101/64 98
01/22/24 03:26 01/22/24 03:26 01/22/24 03:26 01/22/24 03:26 01/22/24 03:26
01/21/24 01/22/24 01/23/24
06:59 06:59 06:59
Actual Weight 60.923 kg 64.552 kg
01/19/24 07:13
01/20/24 07:29
Magnesium 2.1 mg/dl (1.6-2.3) 01/18/24 04:22
01/17/24 01/18/24
11:50 04:22
Btm-K-Trsixpsalcm Pept 4500 5160
Physical Exam
Constitutional: No acute distress
Cardiovascular: Rhythm & rate is regular
Respiratory: Respiratory effort normal
GI: Soft, Non tender and Normal bowel sounds
Neuro/Psych: Alert and Oriented
Data Reviewed
-
Date of Service: January 22, 2024
Medical Decision Making: Reviewed Test Results
EKG: Report Reviewed by me
Medical Tests (PFT, Pathology etc): Report Reviewed by me
Labs: Labs Reviewed by me
--- NOTE | 2024-01-22 08:25 | W.PN.HOSP.TC ---
Addendum entered and electronically signed by Shirin Tellez MD 01/22/24 14:52:
I personally performed a history and physical exam of the patient and discussed management with the resident. I reviewed the resident's note and agree with the documented findings and plan of care HPI/CC except for changes in documentation.
Cath- Left abdominal circulation. 60 to 70% lesion in the proximal third of the nondominant RCA. Positive slow tapering of the distal left main coronary densely calcified. Long 20% lesion in the proximal and mid LAD extending beyond the second
diagonal. 30% lesion in the proximal third of the ramus. 10% lesion in the proximal circumflex and a patent stent in the proximal obtuse marginal with a 10% in-stent restenosis. Low filling pressures.
ECHO- Normal left ventricular systolic function.
Concentric left ventricular hypertrophy.
Mild mitral regurgitation.
Mild aortic regurgitation.
Compared to the previous echo 02/07/23 there is no significant change.
Cardiovascular system S1-S2 appreciated
Chest clear to auscultation
Abdomen soft and nontender
Extremities no edema
Seen after cath- Had mild bleeding from angioseal. Resolved.
# Generalized weakness
Patient may likely have hypotension related symptoms causing cerebral hypoperfusion
He may be intravascularly volume depleted
Stopped lasix, Bactrim and beta-nathanael
Started midodrine
ECHO as above
Stress test no reversible ischemia per ccards
Cardiac cath as above
Patient received 500 mL of IV fluids today
Not sure if the RCA lesion account for his symptms?
# Mechanical fall with skin tear left lateral knee, left elbow, left shoulder
CT scan of the head no bleed
# CHF-acute on chronic HFPEF
Clinically does not look like volume overloaded
Recently treated for fluid overload in [place] and was in the hospital for 8 days per patient. Patient states that his legs are much better now but he has no energy
Elevated BNP noted however clinically not volume overloaded to
Nonischemic myocardial injury
# GILLIS with Stage 3 Fibrosis reported by the patient. He sees Dr Paula . He was started on Rezdiffra as OP, says stopped in [place].
This explains the dose of Aldactone that he is on right now and also that they changed calcium channel blockers to a beta-nathanael.
His BP is not good for resuming these doses.
# 1 episode of hypoglycemia where his sugar dropped to 40s several months ago. Patient was placed on diazoxide, by a physician in [place] and was taken off after MRI.
MRI was done on 12/22/2023 showed bilateral pleural effusion more on left with associated atelectasis and thickening of the region of the LIS. Moderate fluid in the perihepatic site that extends to the right paracolic gutter and perisplenic area.
Liver of increased size with homogeneous parenchymal density without evidence of clear focalities in progress. Intra and extrahepatic bile ducts not dilated. Spleen normal. Pancreas within limits. No specific areas with pathological enhancement
or restriction of proton diffusivity. Regular thickness morphology and adrenal signal. Kidneys within normal limits with some bilateral renal cyst formation
Patient has a Dexcom now.
No more hypoglycemic episodes per patient
# Paroxysmal atrial fibrillation-continue Eliquis. Patient states his diltiazem was discontinued in [place]. Heart rate is slow therefore beta-blockers discontinued
# Coronary artery disease with history of stent ,coronary artery calcification. On Eliquis. Unclear why he is not on statin
# History of pacemaker placement with revision 09/05/2023
# Gout-on Zyloric
# Enlarged prostate with history of TURP
# Anemia-NOS
# Sleep apnea
# History of pancreatitis
# Bilateral lower extremity neuropathy-chronic ambulatory dysfunction uses a walker
# History of complex lobulated cyst with calcification in the left kidney
# DVT Prophylaxis- Eliquis
# CODE STATUS-full code
D/W RN at bed side
D/W this am
Original Note:
Today's Communication/Plan
-
Left and right heart catheterization today
Assessment / Plan
Assessment / Plan
Assessment
Acute on chronic HFpEF
Orthostasis
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
Diarrhea
Conditions present prior to admission
Paroxysmal atrial fibrillation
CAD s/p stent 1999
History of pacemaker placement with revision 09/05/2023
Gout
Enlarged prostate with history of TURP
Anemia
Obstructive sleep apnea
History of pancreatitis
B/L extremity neuropathy
History of complex sleep liters cyst with calcification left kidney
Plan
#Acute on chronic HFpEF
-Echo 01/19/2024 with left ventricular ejection fraction 55 to 60%, concentric left ventricular hypertrophy
-Holding Lasix due to orthostasis. currently holding spironolactone 50 mg.
-Midodrine for BP support
-Stress test with NO reversible ischemia
-Left and right heart catheterization today
#Paroxysmal atrial fibrillation-
-d/c bisoprolol due to lower blood pressures
-Anticoagulation with Eliquis.
#GILLIS with Stage 3 Fibrosis reported by the patient.
-He sees Dr Paula . He was started on Rezdiffra as OP, says stopped in [place].
#1episode of hypoglycemia where his sugar dropped to 40s several months ago. Patient was placed on diazoxide, by a physician in [place] and was taken off after MRI.
# Diarrhea
Stool cultures currently pending, C. difficile Antigen positive, toxin negative
# Coronary artery disease with history of stent ,coronary artery calcification. On Eliquis. Unclear why he is not on statin
# History of pacemaker placement with revision 09/05/2023
# Gout-on Zyloric
# Enlarged prostate with history of TURP
# Anemia-NOS
# Sleep apnea
# History of pancreatitis
# Bilateral lower extremity neuropathy-chronic ambulatory dysfunction uses a walker
# History of complex lobulated cyst with calcification in the left kidney
CODE STATUS-full code
DVT Prophylaxis- Eliquis
Anticipated Discharge: > 48 hours
Subjective/Interval History
-
Date of Service: January 22, 2024
Objective Data
-
Vital Signs:
Vital Signs
Temp Pulse Resp BP Pulse Ox
97.5 F 61 18 112/69 99
01/22/24 08:20 01/22/24 08:20 01/22/24 08:20 01/22/24 08:20 01/22/24 08:20
I&O
01/21/24 01/22/24 01/23/24
06:59 06:59 06:59
Intake Total 1140 / 1140 420 / 420
Output Total 550 / 550
Balance 590 / 590 420 / 420
Review of Systems
-
All other systems: Reviewed and negative (Except as documented)
Physical Exam
-
General: No Apparent Distress
Respiratory: Negative Wheezes or Rales
Cardiac: S1/S2
GI: Soft, Nontender and Nondistended
Musculoskeletal: No Edema
[2024-01-22] MEDS: ELIQUIS PO (09:02)
[2024-01-22] MEDS: ProAmatine 5 MG PO (09:03)
[2024-01-22] MEDS: LASIX PO (09:03)
[2024-01-22] MEDS: PROTONIX 40 MG PO (09:03)
--- NOTE | 2024-01-22 10:25 | ITS.CL.CATH ---
[facility] - Catheterization
Cardiac Catheterization
Procedure Report:
CARDIAC CATHETERIZATION REPORT
Date of Procedure: 01/22/2024
Referring: Handy Pope M.D.
Indication: Assessment of volume status, known coronary artery disease.
PROCEDURE:
1. Right heart catheterization.
2. Left heart catheterization.
3. Coronary angiography.
4. Mitral valve interrogation.
5. Simultaneous pulmonary artery/left ventricle, right ventricle/left ventricle pressure measurement to evaluate for concordance/discordance.
ACCESS:
6 Indonesian right radial artery.
5 Indonesian right antecubital vein.
CATHETERS:
1. 5 Indonesian balloon.
2. 5 Indonesian JL 3.5.
3. 5 Indonesian JR4.
HEMODYNAMIC DATA
Weight (kg): 64.4
AO (s/d/x mmHg): 103/60/80
LV (s/x mmHg): 103/9
PCWP (a/v/x mmHg):
PA (s/d/x mmHg): 15/02/14
RV (s/x mmHg): /
RA (a/v/x mmHg):
SVC SvO2 (%): 65.0
PA SvO2 (%): 63.8
SaO2 (%): 96.3
Hbg (g/dL): 12.1
CO (L/min): 3.59
CI (L/min/m2): 2.07
TPG (mmHg): 5
PVR (Taylor Units): 1.39
SVR (dynes*seconds*cm^-5): 1627
AVO2 Diff (Volume %): 5.35
AV gradient (x, mmHg): 4.8 (pullback)
AV area (cm2): 2.51
MV gradient (x, mmHg): 1.94
MV area (cm2): 2.21
LEFT VENTRICULOGRAPHY: Not performed.
CORONARY ANGIOGRAPHY
Dominance: Left.
Left Main: Large size, trifurcating vessel. There is some modest distal vessel tapering.
LAD: Normal size vessel giving rise to 2 diagonals. There is dense calcification in the proximal vessel extending into the mid vessel with a long, 20% lesion extending beyond the second diagonal.
Ramus: Medium to large size vessel supplying the majority of the anterolateral wall. There is a densely calcified 30% lesion in the proximal third of the vessel.
Circumflex: Normal size, dominant vessel giving rise to 1 obtuse marginal before terminating as a relatively small LPDA. There is a 10% lesion in the proximal circumflex.. The obtuse marginal splits into 3 daughter vessels. There is a patent
stent in the proximal obtuse marginal with approximately 10% in-stent restenosis.
RCA: Medium to large size, nondominant vessel that is essentially a single RV marginal. There is a 60-70% lesion in the proximal third of this vessel.
INTERVENTIONS
None
Closure Device: Vascular band for the right radial artery, manual pressure for the right antecubital vein.
Radiation dose (mGy): 404.51
DAP (cm2.Gy): 24.1824
Fluoroscopy time (minutes): 3.6
Sedation time (minutes): 0
CONCLUSIONS:
1. Left dominant circulation with a 60-70% lesion in the proximal third of the nondominant RCA, tapering of the distal left main coronary artery, a densely calcified, long 20% lesion within the proximal and mid LAD extending beyond the second
diagonal, a 30% lesion in the proximal third of the ramus, a 10% lesion in the proximal circumflex and a patent stent in the proximal obtuse marginal with 10% in-stent restenosis.
2. Low filling pressures, improved with IV hydration in the [facility] [employer].
3. Simultaneous PA/LV, RV/LV tracings show concordance. There is no dip and plateau/square root sign.
4. Preserved cardiac index (2.07 L/min/m�).
RECOMMENDATIONS:
1. Expectant management after cardiac catheterization via right radial/antecubital approach.
2. Limited weight bearing on the right wrist for one week.
3. Hold any further diuresis.
4. Guideline directed medical therapy as hemodynamics will tolerate.
5. Continue aggressive secondary prevention and medical management of coronary artery disease.
Copy to: Handy Pope M.D., Jose Avalos M.D.
Tacho Vera DO, FACC, FACP
--- NOTE | 2024-01-22 11:11 | PN.CDI ---
CDI
- -
CDI:
Physician Documentation Request
Admit Date: 01/19/24 14:28
Dear Doctor Beverly,
Patient admitted for heart failure.
01/21 Cardiology PN: 'permanent A fib on eliquis...Persistent A fib/ flutter -May be contributing to the CHF.'
01/21 Hospitalist PN: 'Paroxysmal atrial fibrillation-d/c bisoprolol due to lower blood pressures-Anticoagulation with Eliquis.'
If possible, please provide further specificity regarding atrial fibrillation, such as:
Permanent atrial fibrillation - when a decision has been made to accept the presence of AF and there is no further attempt to restore or maintain sinus rhythm
Persistent atrial fibrillation - episodes of continuous AF that last more than 7 days and do not self-terminate
Paroxysmal atrial fibrillation - terminates spontaneously or with intervention within 7 days of onset
Other - please specify
Use of terms such as suspected, likely, concern for, or probable (associated with a specific diagnosis that is being evaluated, monitored, or treated as if it exists) are acceptable and can be coded in the inpatient setting, when documented at the
time of discharge.
Thank you,
Marci Mathis RN, BSN
CDI Specialist
Available via [place] text
Please use your independent medical judgment in providing your response.
--- NOTE | 2024-01-22 11:37 | PTCARENOTE ---
pt stated that he has neuropathy baseline to begin with. After the TB was placed he stated that there a was a little more numbness and tingling than his baseline.
[2024-01-22] MEDS: ProAmatine 2.5 MG PO ×2 (13:28→17:23)
[2024-01-22] MEDS: ZYLOPRIM 300 MG PO (16:03)
[2024-01-22] MEDS: ELIQUIS 5 MG PO (20:41)
[2024-01-23] VITALS (7 sets, daily range): BP systolic 81–137; BP diastolic 51–81; PULSE 62–67; O2SAT 99; BMI 22.4
[2024-01-23 07:57] LABS: Hematocrit 36.2 % (39.0-52.0); Hemoglobin 12.8 g/dL (13.0-18.0); Mean Corp Hgb Conc. 35.4 g/dL (33.0-37.0); Mean Corpuscular Hgb 31.7 pg (27.0-31.0); Mean Corpuscular Volume 89.6 fL (80.0-94.0); Mean Platelet Volume 11.2 fL (7.4-10.4); Platelet Count 161 10^3/uL (130-400); Red Blood Cell Count 4.04 10^6/uL (4.70-6.10); Red Cell Dist. Width 13.7 % (11.5-14.5); White Blood Cell Count 6.6 10^3/uL (4.8-10.8)
[2024-01-23] MEDS: ELIQUIS 5 MG PO ×2 (08:33→20:08)
[2024-01-23] MEDS: ProAmatine 2.5 MG PO ×2 (08:33→12:47)
[2024-01-23] MEDS: PROTONIX 40 MG PO (08:33)
[2024-01-23 08:46] LABS: Blood Urea Nitrogen 20 mg/dl (9-20); Calcium 9.6 mg/dl (8.4-10.2); Carbon Dioxide 23 mmol/L (22-30); Chloride 100 mmol/L (98-107); Estimated Creatinine Clearance 58 ml/min; Glucose 48 mg/dl (70-99); Potassium 3.7 mmol/L (3.5-5.1); Sodium 139 mmol/L (135-145); eGFR > 60.00
[2024-01-23 09:17] LABS: Glucose - Point of Care 108 mg/dl (70-99)
--- NOTE | 2024-01-23 09:17 | W.PN.HOSP.TC ---
Addendum entered and electronically signed by Shirin Tellez MD 01/23/24 14:15:
I personally performed a history and physical exam of the patient and discussed management with the resident. I reviewed the resident's note and agree with the documented findings and plan of care HPI/CC.
Patient without any overnight complaints
Cath- Left abdominal circulation. 60 to 70% lesion in the proximal third of the nondominant RCA. Positive slow tapering of the distal left main coronary densely calcified. Long 20% lesion in the proximal and mid LAD extending beyond the second
diagonal. 30% lesion in the proximal third of the ramus. 10% lesion in the proximal circumflex and a patent stent in the proximal obtuse marginal with a 10% in-stent restenosis. Low filling pressures.
ECHO- Normal left ventricular systolic function.
Concentric left ventricular hypertrophy.
Mild mitral regurgitation.
Mild aortic regurgitation.
Compared to the previous echo 02/07/23 there is no significant change.
Cardiovascular system S1-S2 appreciated
Chest clear to auscultation
Abdomen soft and nontender
Extremities no edema
# Generalized weakness
Patient may likely have hypotension related symptoms causing cerebral hypoperfusion
He may be intravascularly volume depleted
Stopped Lasix, Aldactone and beta-nathanael
Started midodrine
ECHO as above
Stress test no reversible ischemia per cards
Cardiac cath as above
JENNIFER stockings for lower extremities
PT OT evaluation
# Mechanical fall with skin tear left lateral knee, left elbow, left shoulder
CT scan of the head no bleed
# CHF-acute on chronic HFPEF
Clinically does not look like volume overloaded
Recently treated for fluid overload in [place] and was in the hospital for 8 days per patient. Patient states that his legs are much better now but he has no energy
Elevated BNP noted however clinically not volume overloaded to
Nonischemic myocardial injury
# GILLIS with Stage 3 Fibrosis reported by the patient. He sees Dr Paula . He was started on Rezdiffra as OP, says stopped in [place].
This explains the dose of Aldactone that he is on right now and also that they changed calcium channel blockers to a beta-nathanael.
His BP is not good for resuming these doses.
# 1 episode of hypoglycemia where his sugar dropped to 40s several months ago. Patient was placed on diazoxide, by a physician in [place] and was taken off after MRI.
MRI was done on 12/22/2023 showed bilateral pleural effusion more on left with associated atelectasis and thickening of the region of the LIS. Moderate fluid in the perihepatic site that extends to the right paracolic gutter and perisplenic area.
Liver of increased size with homogeneous parenchymal density without evidence of clear focalities in progress. Intra and extrahepatic bile ducts not dilated. Spleen normal. Pancreas within limits. No specific areas with pathological enhancement
or restriction of proton diffusivity. Regular thickness morphology and adrenal signal. Kidneys within normal limits with some bilateral renal cyst formation
Patient has a Dexcom now.
Is not symptomatic hypoglycemia therefore patient can follow-up with endocrinology as outpatient.
# Paroxysmal atrial fibrillation-continue Eliquis. Patient states his diltiazem was discontinued in [place]. Heart rate is slow therefore beta-blockers discontinued
# Coronary artery disease with history of stent ,coronary artery calcification. On Eliquis. Unclear why he is not on statin
# History of pacemaker placement with revision 09/05/2023
# Gout-on Zyloric
# Enlarged prostate with history of TURP
# Anemia-NOS
# Sleep apnea
# History of pancreatitis
# Bilateral lower extremity neuropathy-chronic ambulatory dysfunction uses a walker
# History of complex lobulated cyst with calcification in the left kidney
# DVT Prophylaxis- Eliquis
# CODE STATUS-full code
D/W RN at bed side
D/W Case management
D/W Cards
I have reached out to cardiology and case management to come up with a plan for patient's disposition. He has not been seen by PT yesterday or today.
Original Note:
Today's Communication/Plan
-
PT eval
Assessment / Plan
Assessment / Plan
Assessment
Acute on chronic HFpEF
Orthostasis
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
Diarrhea
Conditions present prior to admission
Paroxysmal atrial fibrillation
CAD s/p stent 1999
History of pacemaker placement with revision 09/05/2023
Gout
Enlarged prostate with history of TURP
Anemia
Obstructive sleep apnea
History of pancreatitis
B/L extremity neuropathy
History of complex sleep liters cyst with calcification left kidney
Plan
#Acute on chronic HFpEF
-Echo 01/19/2024 with left ventricular ejection fraction 55 to 60%, concentric left ventricular hypertrophy
-Stopped Lasix, spironolactone, beta-nathanael
-Midodrine for BP support
-Stress test with NO reversible ischemia
-Left and right heart catheterization01/22/2024.Left abdominal circulation. 60 to 70% lesion in the proximal third of the nondominant RCA. Positive slow tapering of the distal left main coronary densely calcified. Long 20% lesion in the proximal
and mid LAD extending beyond the second diagonal. 30% lesion in the proximal third of the ramus. 10% lesion in the proximal circumflex and a patent stent in the proximal obtuse marginal with a 10% in-stent restenosis.
#Paroxysmal atrial fibrillation-
-d/c bisoprolol due to lower blood pressures
-Anticoagulation with Eliquis.
#GILLIS with Stage 3 Fibrosis reported by the patient.
-He sees Dr Paula . He was started on Rezdiffra as OP, says stopped in [place].
#1episode of hypoglycemia where his sugar dropped to 40s several months ago. Patient was placed on diazoxide, by a physician in [place] and was taken off after MRI.
# Diarrhea
Stool cultures currently pending, C. difficile Antigen positive, toxin negative
# Coronary artery disease with history of stent ,coronary artery calcification. On Eliquis. Unclear why he is not on statin
# History of pacemaker placement with revision 09/05/2023
# Gout-on Zyloric
# Enlarged prostate with history of TURP
# Anemia-NOS
# Sleep apnea
# History of pancreatitis
# Bilateral lower extremity neuropathy-chronic ambulatory dysfunction uses a walker
# History of complex lobulated cyst with calcification in the left kidney
CODE STATUS-full code
DVT Prophylaxis- Eliquis
Anticipated Discharge: Within 24 hours
Subjective/Interval History
-
Patient with hypoglycemia BG 48 ON LABS this morning. Patient was asymptomatic. He was given orange juice. Repeat glucose 108. At bedside he denies any symptoms
Objective Data
-
Labs:
Laboratory Results
01/23/24
07:08
WBC 6.6
Hgb 12.8 L
Hct 36.2 L
Plt Count 161
Sodium 139
Potassium 3.7
Chloride 100
Carbon Dioxide 23
BUN 20
Creatinine 1.0
Glucose 48 L*
Calcium 9.6
Vital Signs:
Vital Signs
Temp Pulse Resp BP Pulse Ox
97.7 F 61 20 104/57 96
01/23/24 07:30 01/23/24 07:30 01/23/24 07:30 01/23/24 08:33 01/23/24 07:30
I&O
01/22/24 01/23/24 01/24/24
06:59 06:59 06:59
Intake Total 420 / 420 1080 / 1080
Balance 420 / 420 1080 / 1080
Review of Systems
-
All other systems: Reviewed and negative (Except as documented)
Physical Exam
-
General: No Apparent Distress
Respiratory: Clear to Auscultation
Cardiac: S1/S2
[2024-01-23 12:11] LABS: Glucose - Point of Care 73 mg/dl (70-99)
[2024-01-23 15:37] LABS: Albumin 3.73 g/dL (3.75-5.01); Alpha 1 Globulin 0.28 g/dL (0.19-0.46); Alpha 2 Globulin 0.83 g/dL (0.48-1.05); Free Kappa Light Chains,Quant 38.92 mg/L (3.30-19.40); Free Lambda Light Chains,Quant 27.98 mg/L (5.71-26.30); IgA 275 mg/dL (68-408); IgG 980 mg/dL (768-1632); IgM 184 mg/dL (35-263); Immunofixation Electrophoresis IFE Done; Kappa/Lambda Fr Light Ratio 1.39 (0.26-1.65); Total Protein-Electrophoresis 6.7 g/dL (6.3-8.2)
--- NOTE | 2024-01-23 15:39 | W.PN.UPDATE ---
Addendum entered and electronically signed by Shirin Tellez MD 01/23/24 15:50:
Discussed with cardiology. Treat symptomatic orthostatic hypotension. Hold diuretics. Agrees with increasing midodrine. Whenever patient is better symptomatically he can be discharged. Patient wants to go home and not to rehab.
Original Note:
Update Note
Progress Note Update
Positive for orthostatic hypotension.
Discussed with patient and also case management discussed with the patient he does not want to go to rehab.
Increase midodrine
Await cardiology recommendations-still pending.
[2024-01-23] MEDS: ZYLOPRIM 300 MG PO (16:07)
[2024-01-23 16:58] LABS: Glucose - Point of Care 102 mg/dl (70-99)
[2024-01-23] MEDS: ProAmatine 5 MG PO (17:20)
[2024-01-23 21:54] LABS: 24 Hour Urine Total Volume Random mL; Urine Collection Length Random hr; Urine Free Kappa Light Chains 28.06 mg/L (0.00-32.90); Urine Free Lambda Light Chains 6.46 mg/L (0.00-3.79)
--- NOTE | 2024-01-23 21:54 | W.PN.CD ---
Today's Communication / Plan
-
Pt seen before 10 AM today
Late entry
Communicated with Dr. Pope. He feels pt is dehydrated and over medicated on admission, still wants to look for amyloid heart disease as outpatient.
For now less meds, midodrine until no longer needed, increase activity
Impression / Plan
-
73 yo male with PMH of CAD, s/p OM stent in 1999, permanent A fib on eliquis, MDT PPM is admitted with weakness, dizziness, GIBBONS. He was in [place] over the summer. He had a few issues while there. Sounds like in beginning of summer, may have had
hypoglycemic seizure. Then, later in summer, sounds like was admitted with heart failure, and his diltiazem was changed to bystolic, and aldactone was added.
Chronic heart failure preserved LVEF
- But DRY on cath yesterday
- Less meds
- Outpt eval for amyloid heart disease
Orthostasis
- Less meds, midodrine until not needed, more physical activity
Permanent AFib
Heart block, normal pacer function
CAD, old stent but minimal residual CAD at cath yesterday
Subjective: No CP or dyspnea
Physical Exam
Vital Signs/Labs
Vital Signs
Temp Pulse Resp BP Pulse Ox
97.2 F 62 18 137/81 99
01/23/24 19:33 01/23/24 19:33 01/23/24 19:33 01/23/24 19:33 01/23/24 19:33
01/22/24 01/23/24 01/24/24
06:59 06:59 06:59
Actual Weight 64.552 kg 62.851 kg
01/23/24 07:08
01/23/24 07:08
Magnesium 2.1 mg/dl (1.6-2.3) 01/18/24 04:22
01/17/24 01/18/24
11:50 04:22
Oig-Z-Bglpydmylae Pept [id number] [id number]
Physical Exam
Constitutional: No acute distress
Cardiovascular: Rhythm & rate is regular and Pedal edema is absent
Respiratory: Respiratory effort normal and Crackles Absent
GI: Soft and Distention absent
Neuro/Psych: AO x 3
Data Reviewed
-
Date of Service: January 23, 2024
[2024-01-24 03:19] VITALS: BP 106/66
[2024-01-24 05:19] VITALS: BMI 22.5
[2024-01-24 07:23] VITALS: BP 105/63
[2024-01-24 07:33] LABS: Glucose - Point of Care 68 mg/dl (70-99)
[2024-01-24 07:56] LABS: Glucose - Point of Care 95 mg/dl (70-99)
[2024-01-24] MEDS: PROTONIX 40 MG PO (09:31)
[2024-01-24] MEDS: ELIQUIS 5 MG PO (09:31)
[2024-01-24] MEDS: ProAmatine 5 MG PO ×2 (09:32→14:34)
[2024-01-24 11:00] VITALS: BP 103/65
--- NOTE | 2024-01-24 11:52 | W.PN.CD ---
Today's Communication / Plan
-
Midodrine 5 mg BID for BP support for now
Lasix to40 mg PO QD prn.
Discontinue Aldactone and Bisoprolol for now. May need to reintroduce Metoprolol as outpatient.
Continue Eliquis 5 mg BID.
No need for Diltiazem at this time. No AV conduction at this time.
Impression / Plan
-
73 yo male with PMH of CAD, s/p OM stent in 1999, permanent A fib on eliquis, MDT PPM is admitted with weakness, dizziness, GIBBONS. He was in [place] over the summer. He had a few issues while there. Sounds like in beginning of summer, may have had
hypoglycemic seizure. Then, later in summer, sounds like was admitted with heart failure, and his diltiazem was changed to bystolic, and aldactone was added.
# Suspected HF, type unknown
-meds were changed to GDMT in [place], suspicious for reduced EF; however, he was also diagnoses with Stage III fibrosis of liver and GILLIS (so lasix/aldactone/beta nathanael regimen may be in this setting
- Euvolemic now.
-hold diuretics today
-100% V paced rhythm. if LVEF is dropping then consider upgrade to BiV
-Limiting the medications.
Midodrine 5 mg BID for BP support for now
Lasix to40 mg PO QD prn.
Discontinue Aldactone
Continue Eliquis 5 mg BID.
No need for Diltiazem at this time. No AV conduction at this time.
# CAD, s/p OM stent 1999
-Cath : 01/22/2024 Left dominant circulation with a 60-70% lesion in the proximal third of the nondominant RCA, tapering of the distal left main coronary artery, a densely calcified, long 20% lesion within the proximal and mid LAD extending beyond
the second diagonal, a 30% lesion in the proximal third of the ramus, a 10% lesion in the proximal circumflex and a patent stent in the proximal obtuse marginal with 10% in-stent restenosis.
# Persistent A fib/ flutter
-May be contributing to the CHF. Dual chamber PPM included atrial lead - AF may have become permanent or persistent afterwards.
-2020 was sinus / atrial paced rhythm and 2022 onwards EKGs are showing AF.
-cont eliquis 5mg bid
# s/p PPM
-trend tele: stable
Physical Exam
Vital Signs/Labs
Vital Signs
Temp Pulse Resp BP Pulse Ox
98.0 F 65 18 105/63 97
01/24/24 07:23 01/24/24 07:23 01/24/24 07:23 01/24/24 07:23 01/24/24 07:23
01/23/24 01/24/24 01/25/24
06:59 06:59 06:59
Actual Weight 62.851 kg 63.078 kg
01/23/24 07:08
01/23/24 07:08
Magnesium 2.1 mg/dl (1.6-2.3) 01/18/24 04:22
01/17/24 01/18/24
11:50 04:22
Hbi-Y-Yzryqdouegj Pept 4500 [id number]
Physical Exam
Constitutional: No acute distress and Comfortable
EENT: Anicteric and Moist mucous membranes
Cardiovascular: Rhythm & rate is regular, Pedal edema is absent and JVD pressure is normal
Respiratory: Respiratory effort normal, Lungs clear to auscul. and Wheeze Absent
GI: Soft, Distention absent, Non tender and Normal bowel sounds
Neuro/Psych: Alert, Oriented and AO x 3
Data Reviewed
-
Date of Service: January 24, 2024
Medical Decision Making: Reviewed Test Results and Independent Historian Assessment
EKG: Tracing Personally Visualized and interpreted
Echo: Report Reviewed by me
Labs: Labs Reviewed by me
Old Records: Reviewed
--- NOTE | 2024-01-24 12:05 | W.PN.HOSP.TC ---
Addendum entered and electronically signed by Jose Barrios MD 01/24/24 13:33:
Orthostatic vital signs improved from prior. Patient was asymptomatic during orthostatic vital signs testing. Medically cleared for discharge.
Total time spent on d/c = 34 min. This included today's physical exam, progress note, review of laboratory and diagnostic data, preparation of discharge documents and prescriptions, and discussions about the pt's hospital course and discharge plan
with the patient and other medical assistant ob gyn involved in the patient's care.
Original Note:
Today's Communication/Plan
-
check orthostatic VS, likely d/c after
Assessment / Plan
Assessment / Plan
Gen: NAD, AAOx3.
Eyes: EOMI, PERRLA, no scleral icterus.
Neck: supple.
CV: RRR, +S1/S2, no m/r/g.
Resp: CTAB, no rales, wheezes, or rhonchi.
Abd: +BS, soft, NT, ND
Skin: No rashes.
Neuro: CN 2-12 intact, non-focal.
Psych: Normal mood and affect.
Cath- Left abdominal circulation. 60 to 70% lesion in the proximal third of the nondominant RCA. Positive slow tapering of the distal left main coronary densely calcified. Long 20% lesion in the proximal and mid LAD extending beyond the second
diagonal. 30% lesion in the proximal third of the ramus. 10% lesion in the proximal circumflex and a patent stent in the proximal obtuse marginal with a 10% in-stent restenosis. Low filling pressures.
ECHO- Normal left ventricular systolic function.
Concentric left ventricular hypertrophy.
Mild mitral regurgitation.
Mild aortic regurgitation.
Compared to the previous echo 02/07/23 there is no significant change.
Generalized weakness:
-Patient was in [place] and had an acute CHF exacerbation at that time. He was started on large doses of diuretics. He likely had hypotension related symptoms causing cerebral hypoperfusion.
-Patient was on Lasix earlier during hospitalization. Now lasix/BB/aldactone have been stopped.
-midodrine started for orthostatic hypotension
-echo/cath above
-cont JENNIFER stockings
Other problems:
Mechanical fall with skin tear left lateral knee, left elbow, left shoulder: CT brain without ICH
Nonischemic myocardial injury
GILLIS with Stage 3 Fibrosis
h/o hypoglycemia
Paroxysmal atrial fibrillation: cont Eliquis, BB stopped as above
CAD with h/o stent: Start statin, no BB with bradycardia
h/o PPM
Gout
Enlarged prostate with history of TURP
Anemia-NOS
GAMALIEL
B/L LE neuropathy resulting in chronic ambulatory dysfunction, uses a walker
FULL/Eliquis
Anticipated Discharge: Today
Subjective/Interval History
-
Date of Service: January 24, 2024
Denies CP/SOB/lightheadedness.
Objective Data
-
Vital Signs:
Vital Signs
Temp Pulse Resp BP Pulse Ox
97.6 F 63 20 103/65 98
01/24/24 11:00 01/24/24 11:00 01/24/24 11:00 01/24/24 11:00 01/24/24 11:00
I&O
01/23/24 01/24/24 01/25/24
06:59 06:59 06:59
Intake Total 1080 / 1080 1220 / 1220
Balance 1080 / 1080 1220 / 1220
[2024-01-24 13:12] VITALS: BP 112/68; BP 121/67; BP 90/50; PULSE 61; PULSE 64; PULSE 69
--- NOTE | 2024-01-24 14:10 | CM ---
CM reviewed chart and noted dc order
Bedside meeting with pt and spouse
Declined SNF and VN
Outpt script on chart
IMM verbally reviewed- copy provided
Discharge Disposition- home with outpt therapy- spouse transport
[2024-01-24] MEDS: ZYLOPRIM 300 MG PO (14:35)
[2024-01-24 15:15] VITALS: BP 139/78
--- NOTE | 2024-01-25 14:24 | W.DCSUMMARY ---
Discharge Summary
Discharge Data
Date of Admission: 01/17/24
Date of Discharge: 01/24/24
-
Pending Results: No
Hospital Course
Primary diagnoses:
Secondary diagnoses:
Mechanical fall with skin tear left lateral knee, left elbow, left shoulder
Nonischemic myocardial injury
Nonalcoholic steatohepatitis with Stage 3 Fibrosis
h/o hypoglycemia
Paroxysmal atrial fibrillation
Coronary artery disease with h/o stent
h/o permanent pacemaker placement
Gout
Enlarged prostate with history of transurethral radical prostatectomy
Anemia
Obstructive sleep apnea
Bilateral lower extremity neuropathy resulting in chronic ambulatory dysfunction
Hypoglycemia
Consultants:
Cardiology
Imaging:
Cardiac catheterization: Left abdominal circulation. 60 to 70% lesion in the proximal third of the nondominant RCA. Positive slow tapering of the distal left main coronary densely calcified. Long 20% lesion in the proximal and mid LAD extending
beyond the second diagonal. 30% lesion in the proximal third of the ramus. 10% lesion in the proximal circumflex and a patent stent in the proximal obtuse marginal with a 10% in-stent restenosis. Low filling pressures.
Echo: Normal left ventricular systolic function.
Concentric left ventricular hypertrophy.
Mild mitral regurgitation.
Mild aortic regurgitation.
Compared to the previous echo 02/07/23 there is no significant change.
Hospital course: 73-year-old male presented with a chief complaints of weakness and shortness of breath as outlined in H&P done on admission. Patient recently been in [place] and had an acute exacerbation of heart failure with preserved ejection
fraction at that time. He was started on large doses of diuretics. proBNP was 4500. Chest x-ray showed no acute cardiopulmonary process. On admission he was started on IV Lasix but then it was determined that he he likely had hypotension related
symptoms causing cerebral hypoperfusion causing his weakness. His Lasix and Aldactone were stopped. His beta-nathanael was stopped for bradycardia. He was placed on midodrine for orthostatic hypotension which improved during hospitalization.
Patient had a stress test that showed medium to large sized area of moderately reduced counts involving the inferior and inferolateral wall from base to apex that appears fixed and consistent with likely infarct. Echocardiogram and cardiac
catheterization above, notable for normal LV systolic function and nonobstructive coronary artery disease. Patient was discharged in medically stable condition on Lasix as needed.
Discharge Plan
-
Patient Disposition: Home (Routine Discharge)
Discharge Diagnosis/Procedures: Orthostatic hypotension, cardiac cath
Diet: Low Cholesterol
Driving Restrictions: No driving for 24 hours
Instructions: *CBC Heart Failure Instructions
Stand Alone Forms: DC Instructions- Cath/EP Lab
Referrals:
Lissette Kirkland CRNP [Specified Professional Personl] - 02/09/24 1:40 pm
Jose Avalos MD [Family Provider] - in less than 1 week
Prescriptions:
New
atorvastatin 40 mg Tablet
40 mg PO QPM Qty: 30 0RF
midodrine 5 mg Tablet
5 mg PO TID@0800,1300,1800 Qty: 90 0RF
furosemide [Lasix] 40 mg tablet
40 mg PO BID PRN (Reason: Weight gain > 3lbs ) Qty: 10 0RF
Continued
Eliquis 5 MG tablet
5 mg PO BID
pantoprazole 40 mg Tablet,Delayed Release (Dr/Ec)
40 mg PO DAILY
Bisoprolol 1.25 mg tablet
1.25 mg PO DAILY
Zyloric 300 mg tablet
300 mg PO DAILY@1500
Rezdiffra 80 mg Tablet
80 mg PO DAILY
Discontinued
Lasix 25 mg tablet
50 mg PO BID@0800,1500
spironolactone [Aldactone] 100 mg Tablet
100 mg PO DAILY@1600
Discharge Orders:
Discharge Patient (As Directed); Ordered 01/24/24
Ordered By: Jose Barrios
Discharge Date and Time
Discharge Date/Time: 01/24/24 15:45
Print Language: SWEDISH
== END 2024-01-24 15:45 | disposition home or self-care (01) | DRG 286 ==
LOC: 4 WEST ACU 14:28
PROVIDERS: Internal Medicine Cardiovascular Disease; Nurse Practitioner Adult Health; Nurse Practitioner Family; ADMITTING PHYSICIAN Hospitalist; ATTENDING PHYSICIAN Internal Medicine; CONSULT PHYSICIAN Internal Medicine; EMERGENCY PHYSICIAN Student in an Organized Health Care Education/Training Program; FAMILY PHYSICIAN Family Medicine
PROC: 4A033BC Measurement of Arterial Pressure, Coronary, Percutaneous Approach (ICD-10-PCS; 2024-01-19)
PROC: B2111ZZ Fluoroscopy of Multiple Coronary Arteries using Low Osmolar Contrast (ICD-10-PCS; 2024-01-19)
PROC: 4A023N8 Measurement of Cardiac Sampling and Pressure, Bilateral, Percutaneous Approach (ICD-10-PCS; 2024-01-19)
DX: I11.0 Hypertensive heart disease with heart failure (principal); I50.33 Acute on chronic diastolic (congestive) heart failure; I48.21 Permanent atrial fibrillation; T82.855A Stenosis of coronary artery stent, initial encounter; K74.02 Hepatic fibrosis, advanced fibrosis; K75.81 Nonalcoholic steatohepatitis (NASH); D64.9 Anemia, unspecified; I5A Non-ischemic myocardial injury (non-traumatic); Y71.2 Prosthetic and other implants, materials and accessory cardiovascular devices associated with adverse incidents; E78.00 Pure hypercholesterolemia, unspecified; G47.33 Obstructive sleep apnea (adult) (pediatric); G57.93 Unspecified mononeuropathy of bilateral lower limbs; H91.90 Unspecified hearing loss, unspecified ear; I25.10 Atherosclerotic heart disease of native coronary artery without angina pectoris; I25.2 Old myocardial infarction; Z95.5 Presence of coronary angioplasty implant and graft; I49.3 Ventricular premature depolarization; I95.1 Orthostatic hypotension; K21.9 Gastro-esophageal reflux disease without esophagitis; K58.9 Irritable bowel syndrome, unspecified; M10.9 Gout, unspecified; N40.0 Benign prostatic hyperplasia without lower urinary tract symptoms; W19.XXXA Unspecified fall, initial encounter; R00.1 Bradycardia, unspecified; Z79.01 Long term (current) use of anticoagulants; Z87.19 Personal history of other diseases of the digestive system; Z90.79 Acquired absence of other genital organ(s); Z95.0 Presence of cardiac pacemaker
CPT/HCPCS: 70450; 71046; 78452; 80048; 80053; 82533; 82784; 82962; 83521; 83735; 83880; 84155; 84156; 84165; 84443; 84484; 85025; 85027; 86334; 86335; 87045; 87046; 87077; 87324; 87427; 87449; 87811; 93005; 93017; 93306; 93460; 96374; 97116; 97163; 97530; 99285; A9500; C1894; J2785; Q9967

== ENCOUNTER → 2024-02-23 10:23 | Outpatient (REF) | payer OTHER, SELFPAY | LOC: RAD 10:23 | PROVIDERS: ATTENDING PHYSICIAN Internal Medicine Cardiovascular Disease; FAMILY PHYSICIAN Internal Medicine | DX: I50.20 Unspecified systolic (congestive) heart failure (principal); G62.9 Polyneuropathy, unspecified | CPT/HCPCS: 78803; A9538 ==

== ENCOUNTER → 2024-03-15 13:29 | Outpatient (REF) | payer OTHER, SELFPAY | LOC: MRI 3T 13:29 | PROVIDERS: ATTENDING PHYSICIAN Internal Medicine Endocrinology, Diabetes & Metabolism; FAMILY PHYSICIAN Family Medicine | DX: R73.9 Hyperglycemia, unspecified (principal) | CPT/HCPCS: 72197; 74183; A9575 ==

== ENCOUNTER → 2024-08-06 08:24 | Outpatient (REF) | payer OTHER, SELFPAY | LOC: RST 08:24 | PROVIDERS: ATTENDING PHYSICIAN Otolaryngology; FAMILY PHYSICIAN Family Medicine; REFERRING PHYSICIAN Internal Medicine Cardiovascular Disease | DX: R05.3 Chronic cough (principal); K21.9 Gastro-esophageal reflux disease without esophagitis; R13.14 Dysphagia, pharyngoesophageal phase | CPT/HCPCS: 74230; 92611 ==

== ENCOUNTER 2024-08-23 03:43 | Observation (INO) | payer OTHER, SELFPAY ==
[2024-08-22 20:20] VITALS: BP 112/60
[2024-08-22 20:53] LABS: % Basophils 0.3 % (0-2); % Eosinophils 1.6 % (0-6); % Immature Granulocytes 0.3 % (0-0.5); % Monocytes 8.5 % (1.7-9.3); % Neutrophils 85.3 % (42.2-75.2); Absolute Eosinophils 0.2 10^3/uL (0-0.7); Absolute Lymphocytes 0.4 10^3/uL (1.2-3.4); Absolute Monocytes 0.8 10^3/uL (0.1-0.6); Absolute Neutrophils 7.9 10^3/uL (1.4-6.5); Hematocrit 32.5 % (39.0-52.0); Hemoglobin 11.3 g/dL (13.0-18.0); Mean Corp Hgb Conc. 34.8 g/dL (33.0-37.0); Mean Corpuscular Hgb 31.9 pg (27.0-31.0); Mean Corpuscular Volume 91.8 fL (80.0-94.0); Mean Platelet Volume 9.4 fL (7.4-10.4); Nucleated Red Blood Cells % 0 % (-); Platelet Count 140 10^3/uL (130-400); Red Blood Cell Count 3.54 10^6/uL (4.70-6.10); Red Cell Dist. Width 13.1 % (11.5-14.5); White Blood Cell Count 9.3 10^3/uL (4.8-10.8)
[2024-08-22 21:07] LABS: INR 1.41; PT 17.5 Sec (11.4-14.6)
[2024-08-22 21:13] LABS: ALT (SGPT) 27 U/L (0-50); AST (SGOT) 22 U/L (17-59); Albumin 3.3 g/dl (3.5-5.0); Alkaline Phosphatase 83 U/L (38-126); Blood Urea Nitrogen 15 mg/dl (9-20); Carbon Dioxide 25 mmol/L (22-30); Chloride 101 mmol/L (98-107); Glucose 119 mg/dl (70-99); Potassium 3.8 mmol/L (3.5-5.1); Sodium 133 mmol/L (135-145); Total Bilirubin 1.3 mg/dl (0.2-1.3); eGFR > 60.00
[2024-08-22 21:17] LABS: NT-proBNP 6880 pg/ml
[2024-08-22 22:51] VITALS: BP 124/74
[2024-08-22 22:55] VITALS: BP 124/74; BMI 24.8
[2024-08-22 23:00] VITALS: BP 128/100
[2024-08-23] VITALS (15 sets, daily range): BP systolic 71–124; BP diastolic 47–80; PULSE 60; O2SAT 97; BMI 24.8; BMI 23.0
--- NOTE | 2024-08-23 00:26 | ED.GENMED ---
History of Present Illness
General
Chief Complaint: Weakness
Source: patient
Exam Limitations: none
Time Seen by Provider: 08/23/24 00:11
Nursing documentation reviewed up to this point in time: agreed with
History of Present Illness
History of Present Illness:
74-year-old male past medical history of A-fib currently on Eliquis, CAD, heart failure, pacemaker in place, sleep apnea, presenting to the emergency department today with concerns of general weakness fatigue over the past 3 days significantly
worsening today intermittent left-sided chest pain lasting only for few seconds at a time intermittently described as achy. Had pancreatic tumor removed roughly 3 weeks ago. Denies ongoing chest pain or significant shortness of breath. Denies
nausea vomiting. Thinks he may have been having a low-grade temperature but no temperatures over 100 degrees.
Past History
Past History
ED Past Medical History: Arrthythmia, CAD, GERD, HTN, Hypercholesterolemia, SD (1999) and Other (pancreatitis)
ED Past Surgical History: Cardiac (angioplasty, one stent july 06 1999, cardiac cath 2012, pacemaker 2014) and Tonsilectomy
Patient has exhibited threatening behavior?: No
Social History
Tobacco: Non-smoker
Alcohol: None
Personal:
Living: with family
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
Family History
Family History: Negative Diabetes, Hypertension or CAD
Review of Systems
Review of Systems
Allergies reviewed?: Yes
All Other Systems: ROS reviewed and negative except as documented in HPI and ROS
Phy Exam
Physical Exam
Physical Exam:
GENERAL: Alert , in no apparent distress
EYE: pupils equal and reactive
NECK: Supple, no significant adenopathy.
ENT: o/p clr, mmm.
CARDIAC: Regular rate and rhythm .
LUNGS: Clear breath sounds bilaterally, no acute respiratory distress, no wheezes/rales/rhonchi
ABDOMEN: Soft, without focal tenderness, no r/g, no cvat
NEUROLOGICAL: Alert and oriented, no focal neuro deficits
SKIN: Warm and dry, skin intact.
MUSCULOSKELETAL: No edema, well perfused.
PSYCH: Normal and appropriate interaction.
Course
Orders/Labs/Results
Orders:
Orders
08/22/24
CR Chest - 2 Views Urgent
Reason For Exam: CHEST PAIN
08/22/24 20:23
EKG [Electrocardiogram (*1)] Urgent
Reason for Study: Chest Pain
08/22/24 20:24
EKG- Treatment ONCE
08/22/24 20:48
Complete Blood Count/With Diff Urgent
Comprehensive Metabolic Panel Urgent
Lipase Urgent
Comment: ADD ON
Pro-BNP [NT-proBNP] Urgent
Prothrombin Time Urgent
TSH Reflex To Free T4 Urgent
Comment: ADD ON
Troponin I Urgent
08/22/24 23:39
EKG- Treatment ONCE
08/22/24 23:48
Electrocardiogram (*1) Urgent
Reason for Study: Chest Pain
08/22/24 23:58
Troponin I Urgent
08/23/24 00:32
COVID-19 Antigen Urgent
Source: Nasal Swab
Influenza A+B Rapid Molecular Urgent
ROHIT Source: Nasal Swab
Specimen Description:
08/23/24 00:39
Urinalysis Reflex To Culture Urgent
Date Specimen was Collected: 08/23/24
Time Specimen was Collected: 00:38
Urine Microscopic Reflex Cult Urgent
Urine Culture Urgent
ROHIT Source: U
Specimen Description:
Date Specimen was Collected: 08/23/24
Time Specimen was Collected: 00:38
08/23/24 00:54
pacemaker [Interrogate Pacemaker- Treatment] ONCE
08/23/24 00:55
Furosemide [Lasix] 40 mg IV NOW STA
Midodrine [ProAmatine] 5 mg PO NOW STA
08/23/24 03:29
Admit/Transfer Patient As Directed
Co-Sign Provider:
Level of Care: Observation services
Assign to:: Telemetry
Physician / Group: hospitalist
Diagnosis: weakness
Reason for Telemetry: Subacute Heart Failure
Date to Stop Telemetry: 08/25/24
Time to Stop Telemetry: 11:00
PRN Pain Medication Management As Directed
May give lesser potent ordered pain med per pt: Yes
preference::
Protocol:: Medication orders for pain may be administered in a
manner that supports deferring to patient preference
when the pt is:
- Requesting an ordered lesser potent pain medication.
Least to most potent pain medications are defined
as: acetaminophen < NSAID < tramadol < opioids
(morphine, oxycodone, hydromorphone).
- Requesting a lesser dose of the same medication IF
ORDERED.
- Requesting a less intrusive route of administration
if both routes are prescribed by the provider (PO <
IV).
08/23/24 03:30
Code Status As Directed
Resuscitation Status: Full Code
08/23/24 04:06
Diphenoxylate / Atropine [Lomotil] 1 tablet PO Q6 PRN
Mag Hydrox/Al Hydrox/Simeth [Maalox] 30 ml PO QIDPRN PRN
Ondansetron Injectable [Zofran] 4 mg IV Q6HPRN PRN
08/23/24 04:06
Echo 2D MMode Color/Doppler Routine
Reason for Study: heart failure
CARDIOLOGY CONSULT Routine
Consulting Provider: Guillaume Massey
Was physician already notified: No
Reason for consult: cardiac amyloid, suspect worsening EF vs viral illness
Consult Notification Routine
Specialty to Notify: Cardiology
Date consulting provider notified: 08/23/24
Time consulting provider notified: 08:08
Notified:: Provider
HF DIETARY CONSULT Routine
HF EDUCATOR CONSULT Routine
Comment:
VTE Contraindication Routine
VTE Mechanical Device Contraindication: Medical Contraindication
Pharmocologic Contraindication: Medical Contraindication
Activity As Directed
Activity Level: With Assistance
Intake/ Output As Directed
Frequency: Per unit guidelines
Orthostatic Vital Signs As Directed
Orthostatic VS Frequency: Daily
Patient Education As Directed
Type: CHF folder
Comment: give on admission. Document in Interdisciplinary Education record
Sleep Apnea Assessment by RN As Directed
Comment:
Physician Instructions:
Vital Signs As Directed
Frequency: Other
Additional Instructions:: Q12 or per unit guidelines if more frequent.
Weight As Directed
Frequency: Daily
Type of Scale: Standing Scale
Comment: Daily morning weight. If unable to stand, use balanced bed scale.
Weight As Directed
Frequency: Once
Type of Scale: Standing Scale
Comment: Upon Admission. If unable to stand, use balanced bed scale.
Pulse Ox/cont/shift [RESP] Routine
Quantity: 1
Special Instructions: Daily pulse oximetry at rest. If greater than 92% at rest also obtain pulse oximetry
while ambulating as tolerated.
Pt Eval And Treat Routine
Activity Level: With Assistance
08/23/24 04:22
Basic Metabolic Panel IN AM
ESR [Erythrocyte Sed Rate] IN AM
Magnesium IN AM
Phosphorus IN AM
08/23/24 Breakfast
Cholesterol Lowering
At Your Request: Limited Participation
Cholesterol Lowering: Sodium, 2 Gram
08/23/24 08:00
Apixaban [Eliquis] 5 mg PO BID
Bisoprolol Fumarate [Zebeta] 5 mg PO DAILY
Famotidine [Pepcid] 20 mg PO DAILY
Furosemide [Lasix] 20 mg PO DAILY
Guaifenesin [Mucinex] 600 mg PO Q12
08/23/24 12:00
tafamidis meglumine [Vyndaqel] See Dose Instructions PO NOON
08/23/24 22:00
Midodrine [ProAmatine] 5 mg PO HS
08/24/24 06:00
Basic Metabolic Panel IN AM
08/25/24 06:00
Basic Metabolic Panel IN AM
08/25/24 11:00
DC Protocol for Telemetry ONCE
08/26/24 08:00
Ferrous Sulfate [Feosol] 325 mg PO TuFr@0800
Abnormal Lab Results
08/22/24 08/23/24
20:48 00:39
RBC 3.54 L 10^6/uL
(4.70-6.10)
Hgb 11.3 L g/dL
(13.0-18.0)
Hct 32.5 L %
(39.0-52.0)
MCH 31.9 H pg
(27.0-31.0)
Absolute Neuts (auto) 7.9 H 10^3/uL
(1.4-6.5)
Absolute Lymphs (auto) 0.4 L 10^3/uL
(1.2-3.4)
Absolute Monos (auto) 0.8 H 10^3/uL
(0.1-0.6)
Neutrophils % 85.3 H %
(42.2-75.2)
Lymphocytes % 4.0 L %
(20.5-51.1)
PT 17.5 H Sec
(11.4-14.6)
Sodium 133 L mmol/L
(135-145)
Glucose 119 H mg/dl
(70-99)
Total Protein 6.0 L g/dl
(6.3-8.2)
Albumin 3.3 L g/dl
(3.5-5.0)
Urine Ketones 1+ A
(Negative)
Leukocyte Esterase Rfl 1+ A
(Negative)
Urine Bacteria (Reflex) Many A
(Negative)
Urine Albumin (Reflex) 2+ A
(Neg - Trace)
08/22/24 20:48
08/22/24 20:48
Vital Signs
Initial and Last Documented VS:
Initial Vital Signs
Temp Pulse Resp BP Pulse Ox
98.9 F 61 17 112/60 98
08/22/24 20:20 08/22/24 20:20 08/22/24 20:20 08/22/24 20:20 08/22/24 20:20
Last Documented Vital Signs
Temp Pulse Resp BP Pulse Ox
97.5 F 64 17 91/48 96
08/23/24 15:13 08/23/24 15:13 08/23/24 15:13 08/23/24 15:13 08/23/24 15:13
MDM/Problems Addressed
MDM/Problems Addressed:
74-year-old male presenting to the emergency department today with concerns of generalized weakness fatigue intermittent chest pain. On arrival vital signs are normal patient in no distress claims that he feels very exhausted and feels unsafe at
home. Labs showing elevated BNP negative troponin EKG without acute changes. Chest x-ray with increased vascular markings no obvious pulmonary edema. Patient lives in a private residence. Patient was noted to have significant weight increase
from previous visits current weight of 69.7 kg 7 months ago weight was 63 kg. He denies any excessive eating or known weight gain. Could represent potential worsening heart failure. Was given dose of Lasix also given his midodrine due to his
blood pressure going slightly lower did miss a dose of midodrine tonight. Otherwise plan to admit for further assessment.
*Critical Care Note
Total Time (30-74mins, 75-104mins- exclusive of procedures): Not Applicable
ED Attending Note
-
Portions of this chart may have been created with voice recognition software.� Occasional wrong word or��sound alike� substitutions may have occurred due to the inherent limitations of voice recognition software.
Discharge Plan
Departure
Patient Disposition: Admit
Date of Disposition: 08/23/24
Time of Disposition: 00:58
Admit to: Telemetry
Admit to doctor: Audrey
Presentation/result/management discussed w/ accepting MD/DO: Hospitalist
Patient with high blood pressure during this ER visit?: No
Condition: Good
Covid-19: Not Applicable
Discharge Problem:
Generalized weakness, Heart failure
Interventions
Interventions:
*Risk Screen - Suicide Last Done: 08/22/24 20:23
*General Assessment Last Done: 08/22/24 20:23
*Neglect/Abuse Screening Last Done: 08/22/24 20:23
*ED- Fall Risk Assessment Last Done: 08/22/24 22:55
*ED COVID-19 Vaccine History Last Done: 08/22/24 20:23
*Nursing Disposition Last Done: 08/23/24 15:03
ED- Cardiac Assessment Last Done: 08/23/24 00:51
ED- Neurological Assessment Last Done: 08/23/24 00:51
ED- Pulmonary Assessment Last Done: 08/23/24 00:51
Discharge Date and Time
Discharge Date/Time: 08/23/24 15:03
[2024-08-23 00:53] LABS: Lipase 268 U/L (23-300)
[2024-08-23 00:58] LABS: Urine Albumin 2+ (Neg - Trace); Urine Bilirubin Negative (Negative); Urine Character Slightly Cloudy (Clear); Urine Color Amber; Urine Glucose Negative (Negative); Urine Ketone 1+ (Negative); Urine Leukocyte 1+ (Negative); Urine Nitrite Negative (Negative); Urine Occult Blood Negative (Negative); Urine Specific Gravity 1.015 (<1.030); Urine Urobilinogen 1+ (Neg - 1+)
[2024-08-23 01:06] LABS: COVID-19 Antigen Negative (Negative)
[2024-08-23] MEDS: LASIX 40 MG IV (01:12)
[2024-08-23] MEDS: ProAmatine 5 MG PO ×2 (01:13→21:31)
[2024-08-23 01:24] LABS: TSH Reflex To Free T4 1.37 uIU/ml (0.47-4.68)
[2024-08-23 01:26] LABS: Urine Amorphous Seen; Urine Mucus Many; Urine Squamous Cell >30 /LPF (Few)
[2024-08-23 01:27] LABS: Urine Bacteria Many (Negative); Urine Red Blood Cell 0-2 /HPF (0-2)
--- NOTE | 2024-08-23 03:01 | HPS.HSE ---
Family Physician
-
Family Physician: Jose Avalos
Chief Complaint
-
Weakness and fatigue
History of Present Illness
This is a 74-year-old male with past medical history significant for congestive heart failure, ATTR amyloid, atrial fibrillation on Eliquis, status post pacemaker, CAD status post 1 stent in the remote past presents to the emergency department with
worsening fatigue mostly.
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 [place] well for about 2 weeks. 2 weeks later he started having worsening fatigue. Reports some dyspnea on exertion. Over the last 2 to 3 days he is reports
severe fatigue. He has low-grade temperatures to a high of 99. He reports that he feels very weak and is not able able to open his water bottle. He denies having any chest pain. He reports nausea and some dry heaves with regurgitation. He
denies abdominal bloating. He denies any lower extremity edema. He denies any weight gain and in fact states that he has weight loss. He reports compliance with his medications.
Patient has been on anti-ATTR amyloid medication for several months now. He denies any rash.
He denies any sick contacts.
In the emergency department he had a temp of 99.3, blood pressure was 120/60 with a pulse of 64 and was satting 97% on room air.
ECG shows ventricularly paced rhythm at a rate of 60. Troponin was negative. BNP was elevated at 6800, UA shows contamination and is equivocal.
CBC was unchanged from prior with a hemoglobin of 11.3 normal white cells and a plate count of 140. Electrolytes BUN/creatinine were stable and unremarkable. Sodium was slightly reduced at 133.
Chest x-ray clear
Pacemaker interrogated, no acute events
Medical History
Past Medical History
Past Medical History: Reports Other
Additional Past Medical History:
Neuropathy NOS sleep apnea, atrial fibrillation, coronary artery disease, hypertension, pacemaker, GERD, IBS, history of pancreatitis, enlarged prostate, Deras catheter, hearing impairment, anemia
Past Surgical History: Reports Other
Additional Past Surgical History:
Tonsillectomy, cardiac stent, deviated nasal septum repair, cardiac catheterization, pacemaker placement, cholecystectomy
Partial pancreatectomy
Social History
Tobacco: Non-smoker
Alcohol: None
Drug: None
Personal:
Living: With Family
Employment: Retired
Family History
Family History: Cancer (Brother had brain tumor, son had testicular cancer, daughter had colon cancer)
Allergies / Home Medications
Allergies reflects when Allergies were last updated in [employer].
Home Medications with original date entered in [employer]
Allergy/Medication List:
Allergies
Allergy/AdvReac Type Severity Reaction Status Date / Time
No Known Allergies Allergy Verified 01/17/24 10:54
Home Medications
apixaban 5 mg tablet (Eliquis) 5 mg PO BID Blood Clot Prevention/Tx 08/30/21
Bisoprolol 5 mg ,5 mg p.o. daily
Midodrine 5 mg , 5 mg p.o. daily
Lasix 20 mg tablet, 20 mg p.o. daily
Diphenoxylate/atropine 2.5 mg every 6 hours as needed diarrhea
Amvuttra 25 mg / 0.5 mL, 25 mg injection every 3 months
Tafamidis meglumine 20 mg tablet, 40 mg p.o. at noon
Review of Systems
-
History Source: Patient
Constitutional: Reports No Symptoms
EENT: Reports No Symptoms
Respiratory: Reports No Symptoms
Cardiac: Reports No Symptoms
Abdomen/GI: Reports No Symptoms
: Reports No Symptoms
Musculoskeletal: Reports No Symptoms
Skin: Reports No Symptoms
Neurological: Reports No Symptoms
Endocrine: Reports No Symptoms
Hematologic/Lymphatic: Reports No Symptoms
Psych: Reports No Symptoms
Physical Exam
Vital Signs
Vital Signs
Temp Pulse Resp BP Pulse Ox
99.3 F 64 19 120/63 97
08/22/24 22:55 08/23/24 02:00 08/23/24 00:30 08/23/24 02:00 08/23/24 02:00
Physical Exam
General: No Apparent Distress, Comfortable and Conversant
HEENT: NormoCephalic, Anicteric, Moist mucous membranes and Atraumatic
Respiratory: Clear
Cardiac: S1/S2 and Regular Rhythm
Breast: Deferred by me
GI: Non Tender, Non Distended and Normal Bowel Sounds
Rectal: Deferred by Provider
Genito-urinary: Deferred by me
Musculoskeletal: No Clubbing, No Cyanosis and No Edema
Skin: Warm
Neuro: AO x 3 and Nonfocal/grossly intact
Hematologic/Lymphatic: No Lymphadenopathy
Psych: Calm
Laboratory Results
-
08/22/24 20:48
08/22/24 20:48
Laboratory Results
PT 17.5 Sec (11.4-14.6) H 08/22/24 20:48
INR 1.41 08/22/24 20:48
Total Bilirubin 1.3 mg/dl (0.2-1.3) 08/22/24 20:48
AST 22 U/L (17-59) 08/22/24 20:48
ALT 27 U/L (0-50) 08/22/24 20:48
Alkaline Phosphatase 83 U/L (38-126) 08/22/24 20:48
Troponin I 0.020 ng/ml 08/22/24 23:58
Lipase 268 U/L (23-300) 08/22/24 20:48
Data Reviewed
-
Diagnostic Radiology: Image Personally Visualized and interpreted
Medical Tests (Nuc Med, Echo, EKG etc): Image Personally Visualized and interpreted
Lab Data: Labs Reviewed by me
Old Records: Reviewed
Impression/Plan
-
IMPRESSION:
This is a 74-year-old with past medical history of cardiac amyloidosis (ATTR?). He presents to the emergency department with 3 days of worsening severe fatigue and weakness. He reports that he had about 2 weeks of weakness since his pancreatic
surgery. Low-grade fevers, reflux and mild regurgitation without abdominal pain. Issues no signs of acute infection here with clear x-ray, negative COVID, negative flu and equivocal UA. Physical examination shows no significant evidence of
significant volume overload. He has no peripheral edema, I did not see any JVD. Lungs are clear to auscultation. Chest x-ray is clear. BNP slightly more elevated. Vital signs are stable. He is not requiring any oxygen at rest. Overall picture
is consistent with a viral illness but the etiology is unclear.
PLAN:
1. Weakness with elevated BNP -possibly cardiac wasting versus undetermined viral illness
-Admit to telemetry
-No indication for acute aggressive diuresis, will avoid for now pending further studies
-Echo, TSH, ESR
-Blood cultures afebrile
-Ambulating pulse oximetry
-Orthostatics
-Cardiology consultation
2. CHF
Will continue with his treatment with bisoprolol, furosemide and tafamidis
3. Atrial fibrillation
Paced rhythm, continue bisoprolol, continue Eliquis
PT evaluation
CODE STATUS�full code
[2024-08-23 05:00] LABS: Blood Urea Nitrogen 14 mg/dl (9-20); Calcium 8.6 mg/dl (8.4-10.2); Carbon Dioxide 24 mmol/L (22-30); Chloride 103 mmol/L (98-107); Estimated Creatinine Clearance 82 ml/min; Glucose 96 mg/dl (70-99); Magnesium 1.8 mg/dl (1.6-2.3); Phosphorus 3.1 mg/dl (2.5-4.5); Potassium 3.3 mmol/L (3.5-5.1); Sodium 136 mmol/L (135-145); eGFR > 60.00
[2024-08-23 07:28] LABS: Erythrocyte Sed Rate 62 mm/hour (0-20)
[2024-08-23] MEDS: LASIX 20 MG PO (08:59)
[2024-08-23] MEDS: KCL 40 MEQ PO ×2 (09:00→21:32)
[2024-08-23] MEDS: MUCINEX 600 MG PO ×2 (09:00→19:50)
[2024-08-23] MEDS: ZEBETA 5 MG PO (09:00)
[2024-08-23] MEDS: PEPCID 20 MG PO (09:00)
[2024-08-23] MEDS: ELIQUIS 5 MG PO ×2 (09:01→19:50)
--- NOTE | 2024-08-23 09:42 | CON.CAR ---
Addendum entered and electronically signed by Michael Christopher MD 08/23/24 13:26:
I saw and examined the patient.
The BINDER TECHNICIAN's note was reviewed and I agree with the note.
Comment: Despite the elevated pBNP we do not see evidence of decompensated heart failure. Would continue usual med rx. and pursue a noncardiac explanation for his weakness.
Weight change (today in ER 69.7 kg) does not seem to reflect fluid retention volume overload base on exam/CXR review.
Note his last invasive evaluation showed low filing pressures:
RHC 01/22/2024
Weight (kg):64.4
AO (s/d/x mmHg): 103/60/80
LV (s/x mmHg): 103/9
PCWP (a/v/x mmHg):
PA (s/d/x mmHg): 15/02/14
RV (s/x mmHg): 17/11
RA (a/v/x mmHg):
Original Note:
Consultation
Consultation Request
Date/Time Consultation Requested: 08/23/24 0406
Date/Time Consultation Performed: 08/23/24 0942
Requesting Provider: Dr. Ventura
Performing Provider: Amara JASON for Dr. Christopher
Reason for Consultation: Cardiac amyloid hx
Medical History
-
Chief Complaint: weakness
History of Present Illness:
74 y/o male (Dr. Pope patient) with CAD with hx stenting (OM 1999), permanent AFIB on Eliquis, pacemaker, cardiac amyloid (Dr. Shen), pancreatic tumor, and dyslipidemia. He is here for 3 days of weakness. There is no anginal quality CP. There
is no SOB. He has a poor appetite. He has chronic diarrhea, which has improved with medicine from GI. His stool is positive for Cdiff. We are consulted due to his cardiac amyloid history. He has an echo from this AM pending. He had pancreatic tumor
resection about a month ago (he tells me it was benign). He is in no distress at the time of my assessment.
Past Medical History
Past Medical History: Arrhythmias, CAD, Hypercholesterolemia and Other (as above)
Social History
Personal:
Living: With Family
Family History
Family History: Reviewed & Not Pertinent
Allergies / Home Medications
Allergy/AdvReac Type Severity Reaction Status Date / Time
No Known Allergies Allergy Verified 08/22/24 20:22
�Medication �Instructions �Recorded �Confirmed �Type
apixaban 5 mg tablet (Eliquis) 5 mg PO BID Blood Clot 08/30/21 08/23/24 History
Prevention/Tx
bisoprolol fumarate 5 mg tablet 5 mg PO DAILY 07/09/24 08/23/24 History
ferrous sulfate 325 mg (65 mg 325 mg PO USEASDIRECTD 07/09/24 08/23/24 History
iron) tablet (Iron (ferrous
sulfate))
furosemide 20 mg tablet (Lasix) 20 mg PO DAILY 07/09/24 08/23/24 History
tafamidis meglumine 20 mg capsule 80 mg PO NOON 07/09/24 08/23/24 History
(Vyndaqel)
vutrisiran 25 mg/0.5 mL 0.5 ml SC [id number] 07/09/24 08/23/24 History
subcutaneous syringe (Amvuttra)
diphenoxylate-atropine 2.5 1 tab PO Q6 PRN diarrhea 08/23/24 08/23/24 History
mg-0.025 mg tablet
guaifenesin 600 mg tablet, 600 mg PO Q12 08/23/24 08/23/24 History
extended release 12 hr (Mucus
Relief ER)
midodrine 5 mg tablet 5 mg PO QHS 08/23/24 08/23/24 History
vitamin A 2,400 mcg capsule 2,400 mcg PO DAILY 08/23/24 08/23/24 History
vitamin E (dl, acetate) 180 mg 180 mg PO DAILY 08/23/24 08/23/24 History
(400 unit) capsule
Review of Systems
-
History Source: Patient
All other systems: Negative unless noted (as above)
Constitutional: Other (weakness)
Physical Exam
Vital Signs
Temp Pulse Resp BP Pulse Ox
98.5 F 64 19 107/57 96
08/23/24 04:26 08/23/24 05:00 08/23/24 05:00 08/23/24 09:00 08/23/24 05:00
Lab Results
08/22/24 20:48
08/23/24 04:22
Troponin I 0.020 ng/ml 08/22/24 23:58
Tqe-O-Nnfzbltqodw Pept 6880 pg/ml 08/22/24 20:48
Physical Exam
General: Well Developed, Well Nourished and No Apparent Distress
HEENT: Normocephalic and Anicteric
Respiratory: Clear and Non Labored Respirations
Cardiac: Regular Rhythm
Musculoskeletal: No Edema
Skin: Warm and Dry
Neuro: AO x 3
Psych: Calm
Impression / Plan
-
Weakness:
-stool positive for cdiff- management per primary team
-Otherwise, primary team was concerned for worsening of EF vs viral illness. Echo is pending.
-hypokalemia after lasix given in ER, being replaced
HFpEF:
-chronic, stable
-does not appear volume overloaded to my assessment
-on daily lasix
Cardiac amyloid:
-on tafamidis, Vutrisiran
-continue to follow at [place] next week
CAD with hx stenting:
-no anginal CP
-trop unremarkable
-stable
-continue Eliquis
AFIB, permanent:
-stable, rate controlled
Pacemaker:
-Medtronic
-follow telemetry
DATA:
Cath 01/22/24: Left dominant circulation with a 60-70% lesion in the proximal third of the nondominant RCA, tapering of the distal left main coronary artery, a densely calcified, long 20% lesion within the proximal and mid LAD extending beyond the
second diagonal, a 30% lesion in the proximal third of the ramus, a 10% lesion in the proximal circumflex and a patent stent in the proximal obtuse marginal with 10% in-stent restenosis.
Echo 01/19/24: Normal left ventricular systolic function. Concentric left ventricular hypertrophy. Mild mitral regurgitation. Mild aortic regurgitation.
Data Reviewed
-
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
Radiology: Image Personally Visualized and interpreted (awaiting official read)
Labs: Labs Reviewed by me
--- NOTE | 2024-08-23 13:33 | W.PN.HOSP.TC ---
Today's Communication/Plan
-
Start oral vancomycin 125 mg every 6 hours
Monitor bowel movement form
Trend CBC and BMP
PT/OT
Assessment / Plan
Assessment / Plan
#C. difficile colitis
-Community-acquired; no recent antibiotics per history, C. difficile positive in ED
-Nonsevere presentation; no leukocytosis, creatinine at baseline, hemodynamically stable
-Will start patient on oral vancomycin 125 mg every 6 hours for 10 days
-Encourage oral intake, consider holding Lasix if diarrhea worsens/BP gets lower
-Trend CBC, temperature curve, BMP, bowel movement formed
-Plan for probiotic at discharge
#Weakness
-Viral panel was unremarkable; cardiovascular workup unyielding
-Suspect this is associated with C. difficile colitis as above
-PT/OT recommending SNF
#Orthostatic hypotension
-Had positive orthostatic vitals today not associated with symptoms
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
-As he is asymptomatic we will defer increasing midodrine frequency due to afterload effects
-Would plan to increase midodrine if symptoms worsen
#Chronic HFpEF
#ATTR cardiac amyloidosis
-Echocardiogram here with severe concentric LVH, LVEF 65%, mild MR/TR/AR
-GDMT currently includes tafamidis 80 mg at noon; on Lasix 20 mg daily and midodrine as well
-Appears euvolemic upon my assessment
#CAD s/p PCI
-Home regimen includes beta-nathanael; not currently on aspirin or high intensity
-Home regimen also includes DOAC for which she takes paroxysmal
-No signs of ACS
#Permanent AF
-No known history of electrophysiologic intervention
-Home medications include bisoprolol and Eliquis
-Heart rate WNL
#S/P PPM
-Unclear etiology, suspect high degree AVB with amyloidosis versus sick sinus
-No signs of pacemaker dysfunction at this
#Chronic anemia
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
-Home medications include ferrous sulfate 325 mg
-Baseline hemoglobin likely near 10-12, has been volatile
#Amyloid associate neuropathy
-Home medications include Amvuttra 0.5 mL SQ every 3-month
#GERD
-Home medications do not currently include PPI or antihistamine
-No known history of Will's esophagus or erosive disease
#GAMALIEL on CPAP
-No known history of associated pulmonary hypertension
-Echo here with mild TR, no signs of severe pHTN
#H/O insulinoma
-Recently resected
-Did have significant hypoglycemia prior
DVT prophylaxis: Home Eliquis
Diet: Cholesterol-lowering, 2 g sodium
CODE STATUS: Full code
Anticipated Discharge: 24 - 48 hours
Subjective/Interval History
-
Date of Service: August 23, 2024
Seen and examined at the bedside. No acute events reported overnight. AFVSS this morning
C. difficile test this morning positive for toxigenic C. difficile.
Patient states he still feels weak. Denies any new complaints
Objective Data
-
Labs:
Laboratory Results
08/23/24
04:22
Sodium 136
Potassium 3.3 L
Chloride 103
Carbon Dioxide 24
BUN 14
Creatinine 0.7
Glucose 96
Calcium 8.6
Vital Signs:
Vital Signs
Temp Pulse Resp BP Pulse Ox
98.5 F 60 17 100/65 97
08/23/24 04:26 08/23/24 11:15 08/23/24 11:15 08/23/24 11:10 08/23/24 11:00
I&O
08/22/24 08/23/24 08/24/24
06:59 06:59 06:59
Output Total 200 / 200
Balance -200 / -200
Review of Systems
-
History Source: Patient
All other systems: Reviewed and negative
Physical Exam
-
General: Well Developed, Well Nourished, No Apparent Distress and Comfortable
HEENT: Normocephalic, Atraumatic, Moist Mucous Membranes and Anicteric
Respiratory: Clear to Auscultation and Non Labored Respirations; Negative Accessory Resp Muscle Use
Cardiac: Regular Rhythm and S1/S2; Negative Murmur, Rub, JVD or Gallop
GI: Soft, Nontender, Nondistended and Normal Bowel Sounds
Musculoskeletal: No Clubbing, No Cyanosis and No Edema
Skin: Warm, Dry and Normal Turgor; Negative Rash
Neuro: AO x 3 and Nonfocal/Grossly Intact; Negative Tremors
Psych: Calm
Data Reviewed
-
Labs: Labs Reviewed by me, Discussed with Nurse and Discussed with Patient
--- NOTE | 2024-08-23 14:04 | CM ---
Met with patient and his at the bedside in ED
Pharmacy verified: [facility] @ [address] [facility]
PARIKH explained; form signed @ 1400
Patient and live in a first floor/one floor apartment; no steps to enter; bath has stall shower; ambulates with a Rollator; has an electric scooter for long distance mobility; needs assistance from with ADLs; does not drive
NO SNF utilization history; home health services 2023
will transport home
Refuses to go to a SNF; agreeable to home health for PT; agency options identified; referral sent to [facility] via [facility] [facility] to [facility] liaison
Plan: Home with home health services when medically stable
--- NOTE | 2024-08-23 14:19 | VNURNOTE ---
Home Health Liaison spoke with patient to discuss [facility] nurse/therapy, visits, schedule and homebound status. Patient is agreeable and understands that visits at home will be 2-3 x per week to assess and teach medical management. He confirms that he
has a scale at home. [facility] .
[facility]
[2024-08-23] MEDS: FIRVANQ 125 MG PO (18:11)
[2024-08-23] MEDS: NON-FORMULARY ITEM 80 MG PO (19:49)
--- NOTE | 2024-08-23 21:32 | W.PN.UPDATE ---
Update Note
Progress Note Update
Patient seen for trouble breathing, unable to clear upper airway secretions. VSS - BP 94/63, HR 72, Resp 20, Pulsox 100% on room air.
On exam, lungs are clear b/l t/o. Small amount of rhonchi noted in upper airway. Patient is able to bring up secretions. Offered suctioning, patient declined. Patient stated that this is a chronic issue and has been going on for 3-4 years. He stated
he is on medication at home (Mucinex) to help with secretions. He also stated he is to see GI for further work up.
Patient able to clear secretions. Mucinex dose given as ordered. Ordered [place] spray to help thin secretions, PRN.
--- NOTE | 2024-08-23 22:00 | PTCARENOTE ---
PCT states patient is having trouble breathing and is not responding to questions. Patient sitting on side of bed attempting to clear secretions. Patient responding to questioning. Vital signs: BP 94/63, Resp 20, oxygen saturation 100% on room air.
Suction set up at bedside. FINAN[employer]IREMENT PLAN SPECIALIST on floor and examined patient. PRN ocean spray ordered to help thin secretions.
[2024-08-24] VITALS (8 sets, daily range): BP systolic 92–136; BP diastolic 57–76; PULSE 57–67; O2SAT 99; BMI 23.0
[2024-08-24] MEDS: FIRVANQ 125 MG PO ×5 (00:29→23:28)
[2024-08-24 05:57] LABS: % Basophils 0.6 % (0-2); % Eosinophils 3.1 % (0-6); % Immature Granulocytes 0.4 % (0-0.5); % Lymphocytes 7.5 % (20.5-51.1); % Monocytes 8.8 % (1.7-9.3); % Neutrophils 79.6 % (42.2-75.2); Absolute Eosinophils 0.2 10^3/uL (0-0.7); Absolute Lymphocytes 0.5 10^3/uL (1.2-3.4); Absolute Monocytes 0.6 10^3/uL (0.1-0.6); Absolute Neutrophils 5.6 10^3/uL (1.4-6.5); Hematocrit 33.3 % (39.0-52.0); Hemoglobin 11.2 g/dL (13.0-18.0); Mean Corp Hgb Conc. 33.6 g/dL (33.0-37.0); Mean Corpuscular Hgb 31.5 pg (27.0-31.0); Mean Corpuscular Volume 93.8 fL (80.0-94.0); Mean Platelet Volume 10.2 fL (7.4-10.4); Nucleated Red Blood Cells % 0 % (-); Platelet Count 151 10^3/uL (130-400); Red Blood Cell Count 3.55 10^6/uL (4.70-6.10); Red Cell Dist. Width 12.8 % (11.5-14.5); White Blood Cell Count 7.1 10^3/uL (4.8-10.8)
[2024-08-24 06:17] LABS: Blood Urea Nitrogen 16 mg/dl (9-20); Carbon Dioxide 28 mmol/L (22-30); Chloride 104 mmol/L (98-107); Estimated Creatinine Clearance 72 ml/min; Glucose 87 mg/dl (70-99); Magnesium 1.9 mg/dl (1.6-2.3); Potassium 4.3 mmol/L (3.5-5.1); Sodium 138 mmol/L (135-145); eGFR > 60.00
[2024-08-24] MEDS: LASIX 20 MG PO (07:53)
[2024-08-24] MEDS: PEPCID 20 MG PO (07:53)
[2024-08-24] MEDS: MUCINEX 600 MG PO ×2 (07:53→19:42)
[2024-08-24] MEDS: ELIQUIS 5 MG PO ×2 (07:53→19:43)
[2024-08-24] MEDS: MAALOX 30 ML PO (08:14)
[2024-08-24] MEDS: ZEBETA 5 MG PO (08:53)
--- NOTE | 2024-08-24 12:13 | W.PN.HOSP.TC ---
Today's Communication/Plan
-
Continue oral vancomycin every 6 hours
Aspiration precaution
PT/OT
Assessment / Plan
Assessment / Plan
#C. difficile colitis
-Community-acquired; no recent antibiotics per history, C. difficile positive in ED
-Nonsevere presentation; no leukocytosis, creatinine at baseline, hemodynamically stable
-Will start patient on oral vancomycin 125 mg every 6 hours for 10 days, Day 06/07
-Encourage oral intake, consider holding Lasix if diarrhea worsens/BP gets lower
-Trend CBC, temperature curve, BMP, bowel movement formed
-Plan for probiotic at discharge
#Weakness
-Viral panel was unremarkable; cardiovascular workup unyielding
-Suspect this is associated with C. difficile colitis as above
-PT/OT recommending SNF
#Orthostatic hypotension
-Had positive orthostatic vitals today not associated with symptoms
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
-As he is asymptomatic we will defer increasing midodrine frequency due to afterload effects
-Would plan to increase midodrine if symptoms worsen
#Chronic dysphagia
-Differentials include esophageal dysmotility (achalasia, nutcracker esophagus) v. stricture v. amyloid infiltrative disease
-Following with GI outpatient, was initially scheduled for EGD on 08/23/2024, will need to reschedule
-Not currently on any PPI or other therapy
-Aspiration precautions while here
#Chronic HFpEF
#ATTR cardiac amyloidosis
-Echocardiogram here with severe concentric LVH, LVEF 65%, mild MR/TR/AR
-GDMT currently includes tafamidis 80 mg at noon; on Lasix 20 mg daily and midodrine as well
-Appears euvolemic upon my assessment
#CAD s/p PCI
-Home regimen includes beta-nathanael; not currently on aspirin or high intensity
-Home regimen also includes DOAC for which she takes paroxysmal
-No signs of ACS
#Permanent AF
-No known history of electrophysiologic intervention
-Home medications include bisoprolol and Eliquis
-Heart rate WNL
#S/P PPM
-Unclear etiology, suspect high degree AVB with amyloidosis versus sick sinus
-No signs of pacemaker dysfunction at this
#Chronic anemia
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
-Home medications include ferrous sulfate 325 mg
-Baseline hemoglobin likely near 10-12, has been volatile
#Amyloid associate neuropathy
-Home medications include Amvuttra 0.5 mL SQ every 3-month
#GERD
-Home medications do not currently include PPI or antihistamine
-No known history of Will's esophagus or erosive disease
#GAMALIEL on CPAP
-No known history of associated pulmonary hypertension
-Echo here with mild TR, no signs of severe pHTN
#H/O insulinoma
-Recently resected
-Did have significant hypoglycemia prior
DVT prophylaxis: Home Eliquis
Diet: Cholesterol-lowering, 2 g sodium
CODE STATUS: Full code
Anticipated Discharge: 24 - 48 hours
Subjective/Interval History
-
Date of Service: August 24, 2024
Seen and examined at the bedside. No acute events reported overnight. AFVSS this morning
Patient states he did have 1 episode yesterday evening where he felt like he was choking. Has been having issue with dysphagia, was scheduled for EGD with Dr. Abrams on 08/23 but was admitted here instead
States his diarrhea is slightly improved, does not feel quite as weak today. Denies any other new complaints as well
Objective Data
-
Labs:
Laboratory Results
08/24/24
05:15
WBC 7.1
Hgb 11.2 L
Hct 33.3 L
Plt Count 151
Sodium 138
Potassium 4.3 D
Chloride 104
Carbon Dioxide 28
BUN 16
Creatinine 0.8
Glucose 87
Calcium 9.0
Vital Signs:
Vital Signs
Temp Pulse Resp BP Pulse Ox
98.0 F 61 18 115/71 100
08/24/24 11:29 08/24/24 11:29 08/24/24 11:29 08/24/24 11:29 08/24/24 11:29
I&O
08/23/24 08/24/24 08/25/24
06:59 06:59 06:59
Output Total 200 / 200
Balance -200 / -200
Review of Systems
-
History Source: Patient
All other systems: Reviewed and negative
Physical Exam
-
General: Well Developed, Well Nourished, No Apparent Distress and Comfortable
HEENT: Normocephalic, Atraumatic, Moist Mucous Membranes, Anicteric and Other (No neck or submandibular masses on palpation)
Respiratory: Clear to Auscultation and Non Labored Respirations; Negative Accessory Resp Muscle Use
Cardiac: Regular Rhythm and S1/S2; Negative Murmur, Rub or Gallop
GI: Soft, Nontender, Nondistended and Normal Bowel Sounds
Musculoskeletal: No Clubbing, No Cyanosis and No Edema
Skin: Warm, Dry and Normal Turgor; Negative Rash
Neuro: AO x 3 and Nonfocal/Grossly Intact; Negative Tremors
Psych: Calm
Data Reviewed
-
Labs: Labs Reviewed by me and Discussed with Patient
[2024-08-24] MEDS: NON-FORMULARY ITEM 80 MG PO (12:23)
--- NOTE | 2024-08-24 12:24 | W.PN.CD ---
Today's Communication / Plan
-
Patient appears euvolemic on exam today echocardiogram LV function is similar to previous study and PA pressure is 25-30. Exact cause for fatigue and weakness unclear. Additional assessment being directed by primary team.
.
Note:
Patient has a chronic history of having some choking spells feels like he has mucus in the back of his throat finds it difficult to breathe and has to drink water. He has had these issues prior to his hospitalization. Is following up with GI. I
did witness one of the episodes today. He appeared fine and was speaking when he suddenly had an episode and he appeared uncomfortable and just appeared like he had something in the back of his throat and took sips of water and after a couple
minutes seemed to recover he only raised a small degree of sputum. He did not appear to have significant coughing or vomiting with the episode.
Impression / Plan
-
Weakness:
-Exact etiology unclear. May be multifactorial. Patient denies shortness of breath.
-stool positive for cdiff- management per primary team
-Echo with EF 65 to 70% severe concentric LVH mild to moderate AR and mild to moderate TR. Estimated PA pressure 25-30 compared to the previous study AR and TR mildly greater but otherwise no significant change.
HFpEF:
-Patient with amyloidosis ( Followed at [facility] by Dr. Shen)
-chronic, stable
-Euvolemic continue current therapy.
Cardiac amyloid:
-on tafamidis, Vutrisiran
-continue to follow at [facility] next week
CAD with hx stenting:
-no anginal CP
-trop unremarkable
-stable
-continue Eliquis
AFIB, permanent:
-stable, rate controlled
Pacemaker:
-Medtronic
-follow telemetry
DATA:
Cath 01/22/24: Left dominant circulation with a 60-70% lesion in the proximal third of the nondominant RCA, tapering of the distal left main coronary artery, a densely calcified, long 20% lesion within the proximal and mid LAD extending beyond the
second diagonal, a 30% lesion in the proximal third of the ramus, a 10% lesion in the proximal circumflex and a patent stent in the proximal obtuse marginal with 10% in-stent restenosis.
Echo 01/19/24: Normal left ventricular systolic function. Concentric left ventricular hypertrophy. Mild mitral regurgitation. Mild aortic regurgitation.
Physical Exam
Vital Signs/Labs
Vital Signs
Temp Pulse Resp BP Pulse Ox
98.0 F 61 18 115/71 100
08/24/24 11:29 08/24/24 11:29 08/24/24 11:29 08/24/24 11:29 08/24/24 11:29
08/23/24 08/24/24 08/25/24
06:59 06:59 06:59
Actual Weight 69.7 kg 64.501 kg
08/24/24 05:15
08/24/24 05:15
PT 17.5 Sec (11.4-14.6) H 08/22/24 20:48
INR 1.41 08/22/24 20:48
Magnesium 1.9 mg/dl (1.6-2.3) 08/24/24 05:15
08/22/24
20:48
Wld-D-Efdmbyzlzzw Pept 6880
LAB Results
08/22/24 08/22/24
20:48 23:58
Troponin I 0.020 0.020
Physical Exam
Constitutional: No acute distress
Cardiovascular: Rhythm & rate is regular
Respiratory: Wheeze Absent and Rhonchi Absent
GI: Soft, Non tender and Normal bowel sounds
Neuro/Psych: Alert
Data Reviewed
-
Date of Service: August 24, 2024
Medical Decision Making: Reviewed Test Results
X-Ray/CT/US/MRI/NUC/PET: Report Reviewed by me
Medical Tests (PFT, Pathology etc): Image Personally Visualized and interpreted
Labs: Labs Reviewed by me
--- NOTE | 2024-08-24 14:01 | CM ---
CM following re: discharge planning.
Reviewed pt's chart, met with pt and pt's spouse at bedside.
Updated PT and OT evaluations noted - home PT/OT recommended.
Both pt and his spouse are aware, expressed their agreement. [facility] preferred.
A referral to [facility] noted. [facility] liaison following.
Please fax discharge instructions to [facility] at [phone].
D/C plan: home with [facility] and family support. Spouse to transport at discharge.
CM will follow with discharge plan updates as needed.
[2024-08-24 16:00] LABS: Folate 17.6 ng/ml (2.76-20); Vitamin B12 452 pg/ml (239-931)
[2024-08-24] MEDS: ProAmatine 5 MG PO (21:30)
[2024-08-25 03:10] VITALS: BP 113/63
[2024-08-25] MEDS: FIRVANQ 125 MG PO ×2 (05:24→11:21)
[2024-08-25 05:31] VITALS: BMI 23.0
[2024-08-25 07:00] VITALS: BP 130/76
[2024-08-25 07:19] LABS: % Basophils 0.5 % (0-2); % Eosinophils 3.6 % (0-6); % Immature Granulocytes 0.6 % (0-0.5); % Lymphocytes 11.8 % (20.5-51.1); % Monocytes 6.9 % (1.7-9.3); % Neutrophils 76.6 % (42.2-75.2); Absolute Eosinophils 0.2 10^3/uL (0-0.7); Absolute Lymphocytes 0.8 10^3/uL (1.2-3.4); Absolute Monocytes 0.4 10^3/uL (0.1-0.6); Absolute Neutrophils 4.9 10^3/uL (1.4-6.5); Hematocrit 36.3 % (39.0-52.0); Hemoglobin 12.2 g/dL (13.0-18.0); Mean Corp Hgb Conc. 33.6 g/dL (33.0-37.0); Mean Corpuscular Hgb 31.7 pg (27.0-31.0); Mean Corpuscular Volume 94.3 fL (80.0-94.0); Mean Platelet Volume 9.5 fL (7.4-10.4); Nucleated Red Blood Cells % 0 % (-); Platelet Count 169 10^3/uL (130-400); Red Blood Cell Count 3.85 10^6/uL (4.70-6.10); White Blood Cell Count 6.4 10^3/uL (4.8-10.8)
[2024-08-25 07:45] LABS: Blood Urea Nitrogen 12 mg/dl (9-20); Calcium 9.5 mg/dl (8.4-10.2); Carbon Dioxide 29 mmol/L (22-30); Chloride 104 mmol/L (98-107); Estimated Creatinine Clearance 82 ml/min; Glucose 78 mg/dl (70-99); Sodium 141 mmol/L (135-145); eGFR > 60.00
--- NOTE | 2024-08-25 07:58 | W.PN.CD ---
Addendum entered and electronically signed by Handy Pope MD 08/25/24 08:05:
After further review I opted to keep patient's medications the same for now. I will contact Dr. Shen and we will coordinate any plans for medication changes
Original Note:
Today's Communication / Plan
-
Overall appears to be feeling better. Was ambulate laying in the room with no complaints of shortness of breath
-Patient has been on both bisoprolol and midodrine which is not an ideal combination. On a prior admission he had issues with hypotension. Normally would use Toprol-XL or Coreg with history of heart failure. Patient also has A-fib which has been
rate controlled with paced rhythm and also has a history of CAD without angina. Will transition from bisoprolol to Toprol-XL. Then as outpatient depending on pressures we can see if he can wean him off midodrine. Patient has a follow-up at [facility]
next week
-Patient otherwise stable from a cardiology standpoint
Impression / Plan
-
Weakness:
-Exact etiology unclear. May be multifactorial. Patient denies shortness of breath.
-stool positive for cdiff- management per primary team
-Echo with EF 65 to 70% severe concentric LVH mild to moderate AR and mild to moderate TR. Estimated PA pressure 25-30 compared to the previous study AR and TR mildly greater but otherwise no significant change.
HFpEF:
-Patient with amyloidosis ( Followed at [facility] by Dr. Shen)
-chronic, stable
-Euvolemic continue current therapy.
-Patient has been on both bisoprolol and midodrine which is not an ideal combination. On a prior admission he had issues with hypotension. Normally would use Toprol-XL or Coreg with history of heart failure. Patient also has A-fib which has been
rate controlled with paced rhythm and also has a history of CAD without angina. Will transition from bisoprolol to Toprol-XL. Then as outpatient depending on pressures we can see if he can wean him off midodrine. Patient has a follow-up at [facility]
next week
Cardiac amyloid:
-on tafamidis, Vutrisiran
-continue to follow at [facility] next week
CAD with hx stenting:
-no anginal CP
-trop unremarkable
-stable
-continue Eliquis
AFIB, permanent:
-stable, rate controlled
Pacemaker:
-Medtronic
-follow telemetry
DATA:
Cath 01/22/24: Left dominant circulation with a 60-70% lesion in the proximal third of the nondominant RCA, tapering of the distal left main coronary artery, a densely calcified, long 20% lesion within the proximal and mid LAD extending beyond the
second diagonal, a 30% lesion in the proximal third of the ramus, a 10% lesion in the proximal circumflex and a patent stent in the proximal obtuse marginal with 10% in-stent restenosis.
Echo 01/19/24: Normal left ventricular systolic function. Concentric left ventricular hypertrophy. Mild mitral regurgitation. Mild aortic regurgitation.
Physical Exam
Vital Signs/Labs
Vital Signs
Temp Pulse Resp BP Pulse Ox
97.6 F 61 16 130/76 99
08/25/24 07:00 08/25/24 07:00 08/25/24 07:00 08/25/24 07:00 08/25/24 07:00
08/24/24 08/25/24 08/26/24
06:59 06:59 06:59
Actual Weight 64.501 kg 64.58 kg
08/25/24 06:53
08/25/24 06:53
PT 17.5 Sec (11.4-14.6) H 08/22/24 20:48
INR 1.41 08/22/24 20:48
Magnesium 1.9 mg/dl (1.6-2.3) 08/24/24 05:15
08/22/24
20:48
Vpy-D-Bwinzvtzqrj Pept 6880
LAB Results
08/22/24 08/22/24
20:48 23:58
Troponin I 0.020 0.020
Physical Exam
Constitutional: Comfortable
Cardiovascular: Rhythm & rate is regular
Respiratory: Wheeze Absent and Rhonchi Absent
GI: Soft and Non tender
Neuro/Psych: Alert and Oriented
Data Reviewed
-
Date of Service: August 25, 2024
Medical Decision Making: Reviewed Test Results
Echo: Report Reviewed by me
Medical Tests (PFT, Pathology etc): Report Reviewed by me
Labs: Labs Reviewed by me
[2024-08-25] MEDS: ELIQUIS 5 MG PO (08:36)
[2024-08-25] MEDS: LASIX 20 MG PO (08:36)
[2024-08-25] MEDS: PEPCID 20 MG PO (08:36)
[2024-08-25] MEDS: MUCINEX 600 MG PO (08:36)
[2024-08-25] MEDS: ZEBETA PO (08:37)
--- NOTE | 2024-08-25 10:33 | CM ---
CM following re: discharge planning.
Reviewed pt's chart, met with pt.
According to pt is medically stable to be discharged today. pt is aware, expressed his agreement and he stated his spouse will transport home. Pt still OBS status, no IMM review required.
PT and OT continue recommending Home PT/OT. Pt preferred [facility] and pt is accepted for services. [facility] liaison following.
Please fax discharge instructions to [facility] at [phone].
D/C plan: home with [facility] and family support. Spouse to transport.
No other discharge needs identified.
[2024-08-25 11:11] VITALS: BP 121/76
--- NOTE | 2024-08-25 11:12 | W.PN.HOSP.TC ---
Today's Communication/Plan
-
Discharge with home PT
Oral vancomycin 125 mg every 6 hours to complete 10-days
Encourage probiotic after vancomycin regimen
Assessment / Plan
Assessment / Plan
#C. difficile colitis
-Community-acquired; no recent antibiotics per history, C. difficile positive in ED
-Nonsevere presentation; no leukocytosis, creatinine at baseline, hemodynamically stable
-Continue patient on oral vancomycin 125 mg every 6 hours for 10 days, Day 07/05
-Encourage oral intake, consider holding Lasix if diarrhea worsens/BP gets lower
-Trend CBC, temperature curve, BMP, bowel movement formed
-Plan for probiotic at discharge
#Weakness
-Viral panel was unremarkable; cardiovascular workup unyielding
-Suspect this is associated with C. difficile colitis as above
-PT/OT recommending SNF
#Orthostatic hypotension
-Had positive orthostatic vitals today not associated with symptoms
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
-As he is asymptomatic we will defer increasing midodrine frequency due to afterload effects
-Would plan to increase midodrine if symptoms worsen
#Chronic dysphagia
-Differentials include esophageal dysmotility (achalasia, nutcracker esophagus) v. stricture/webs v. amyloid infiltrative disease
-Following with GI outpatient, was initially scheduled for EGD on 08/23/2024, will need to reschedule
-Not currently on any PPI or other therapy
-Aspiration precautions while here
#Chronic HFpEF
#ATTR cardiac amyloidosis
-Echocardiogram here with severe concentric LVH, LVEF 65%, mild MR/TR/AR
-GDMT currently includes tafamidis 80 mg at noon; on Lasix 20 mg daily and midodrine as well
-Appears euvolemic upon my assessment
#CAD s/p PCI
-Home regimen includes beta-nathanael; not currently on aspirin or high intensity
-Home regimen also includes DOAC for which she takes paroxysmal
-No signs of ACS
#Permanent AF
-No known history of electrophysiologic intervention
-Home medications include bisoprolol and Eliquis
-Heart rate WNL
#S/P PPM
-Unclear etiology, suspect high degree AVB with amyloidosis versus sick sinus
-No signs of pacemaker dysfunction at this
#Chronic anemia
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
-Home medications include ferrous sulfate 325 mg
-Baseline hemoglobin likely near 10-12, has been volatile
#Amyloid associate neuropathy
-Home medications include Amvuttra 0.5 mL SQ every 3-month
#GERD
-Home medications do not currently include PPI or antihistamine
-No known history of Will's esophagus or erosive disease
#GAMALIEL on CPAP
-No known history of associated pulmonary hypertension
-Echo here with mild TR, no signs of severe pHTN
#H/O insulinoma
-Recently resected
-Did have significant hypoglycemia prior
DVT prophylaxis: Home Eliquis
Diet: Cholesterol-lowering, 2 g sodium
CODE STATUS: Full code
Disposition: Home care
Anticipated Discharge: Today
Subjective/Interval History
-
Date of Service: August 25, 2024
Seen and examined at the bedside. No acute events reported overnight. AFVSS this morning
Labs are stable. Patient states his bowel movements are developing form
Denies any new complaints today. States that strength is much improved
Objective Data
-
Labs:
Laboratory Results
08/25/24
06:53
WBC 6.4
Hgb 12.2 L
Hct 36.3 L
Plt Count 169
Sodium 141
Potassium 4.0
Chloride 104
Carbon Dioxide 29
BUN 12
Creatinine 0.7
Glucose 78
Calcium 9.5
Vital Signs:
Vital Signs
Temp Pulse Resp BP Pulse Ox
97.8 F 62 18 121/76 100
08/25/24 11:11 08/25/24 11:11 08/25/24 11:11 08/25/24 11:11 08/25/24 11:11
I&O
08/24/24 08/25/24 08/26/24
06:59 06:59 06:59
Intake Total 1380 / 1380
Balance 1380 / 1380
Review of Systems
-
History Source: Patient
All other systems: Reviewed and negative
Physical Exam
-
General: Well Developed, Well Nourished, No Apparent Distress and Comfortable
HEENT: Normocephalic, Atraumatic and Moist Mucous Membranes
Respiratory: Clear to Auscultation and Non Labored Respirations
Cardiac: Regular Rhythm and S1/S2; Negative Murmur, Rub or Gallop
GI: Soft, Nontender, Nondistended and Normal Bowel Sounds
Musculoskeletal: No Clubbing, No Cyanosis, No Edema and Normal Gait & Station (With walker)
Skin: Warm, Dry and Normal Turgor; Negative Rash
Neuro: AO x 3 and Nonfocal/Grossly Intact; Negative Tremors
Psych: Calm
Data Reviewed
-
Labs: Labs Reviewed by me, Discussed with Physician (Bottom Cementer) and Discussed with Patient
[2024-08-25] MEDS: NON-FORMULARY ITEM 20 MG PO (11:21)
--- NOTE | 2024-08-25 16:15 | W.DCSUMMARY ---
Discharge Summary
Discharge Data
Date of Admission: 08/23/24
Date of Discharge: 08/25/24
Total time spent discharging patient (in min): 32
-
Pending Results: No
Hospital Course
Discharging Physician :� Tacho Vences DO
Disposition :���� Home with homecare
Principal Discharge diagnosis :�
C. Difficile Colitis
Weakness
Dysphagia
Chronic Discharge diagnosis :�
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
CAD s/p PCI
AF on Eliquis
Status post PPM
HTN
GERD
GAMALIEL on CPAP
AOCD
H/O insulinoma
Hospital Course :�
74-year-old male that presented to the hospital with weakness and diarrhea. Symptoms were associated with nausea, subjective fever and weight loss. 1 to 2 months post resection of insulinoma. Hemodynamically stable and afebrile throughout
hospitalization. Initial stool studies positive for C. difficile colitis. Patient was started on oral vancomycin 125 mg every 6 hours, completed 3/10 days of antibiotics while in the hospital. Was evaluated by PT who initially recommended SNF.
With treatment of C. difficile colitis his strength improved and ongoing PT assessments recommended home PT. By 08/25/2024 patient was having formed bowel movements, labs without elevation in creatinine or leukocytosis. Was recommended to complete
10-day course of oral vancomycin after discharge with prescription sent to his pharmacy. Of note, did have orthostatic vital signs that were positive initially however not associated with symptoms. Patient currently on as needed midodrine, did not
escalate midodrine with underlying restrictive cardiomyopathy though ultimately may need escalated.
He also was noted to be following with outpatient GI for workup of his ongoing dysphagia. Unclear etiology at this time. Has EGD planned as an outpatient. No indication to expedite endoscopy while in hospital. Recommend that he follows up with
GI after discharge and keep his scheduled appointment for EGD.
Consultants :
Handy Ireland MD -- Cardiology
Important imaging findings :�
Transthoracic echocardiogram (08/23/24)
CONCLUSIONS:
Normal left ventricular size and systolic function. No regional wall motion abnormalities are seen.
LV ejection fraction is 65-70% by Parmar's method. Severe concentric left ventricular hypertrophy.
Pacer wire seen in right heart.
Mild mitral regurgitation.
Mild to moderate aortic regurgitation.
Mild to moderate tricuspid regurgitation. Estimated pulmonary artery pressure of 25-30 mmHg.
Compared to the previous echo Dec 2023, AR and TR are slightly worse, no other significant change.
Procedure findings :� N/A
Follow-up :
Complete 7 days of oral vancomycin
Follow-up with PCP in 1 to 2 weeks
Follow-up with customer experience analyst in 2 weeks
Follow-up with gastroenterology, keep appointment for EGD
Discharge Plan
-
Patient Disposition: Home with Home Care
Discharge Diagnosis/Procedures: C. difficile colitis
Weakness
Condition: Good
Diet: No added salt
Activity: As tolerated and With Walker
Driving Restrictions: No driving for 24 hours
Bathing Restrictions: None
Blood Work: Follow-up with family doctor for BMP and CBC
Others Tests: EGD with gastroenterology
Other Services: VN and PT
Specialty Instructions: Weigh Daily- Call MD for wt gain/loss 3 lbs overnight/5 lbs in 1 week
Activity Restrictions/Additional Instructions:
After discharge from the hospital schedule follow-up appointment with your family doctor. Should be seen in office within 1 to 2 weeks of discharge from the hospital
Contact your linotype mechanic about rescheduling the office visit you missed while in the hospital. You should proceed with having the EGD performed to assess for the cause of your dysphagia (swallowing issues)
Follow-up with your customer experience analyst within 2 to 3 weeks of discharge from the hospital
Instructions: *CBC Heart Failure Instructions
Referrals:
Jose Avalos MD [Family Provider] -
Additional Discharge Medication Instructions: Continue oral vancomycin 125 mg 4 times daily through the end of 09/01/2024
After you are done with your antibiotic course, consider starting [id number] probiotic
Prescriptions:
New
vancomycin 125 mg capsule
125 mg PO QID 8 Days Qty: 32 0RF
Continued
Eliquis 5 MG tablet
5 mg PO BID
bisoprolol fumarate 5 mg Tablet
5 mg PO DAILY
ferrous sulfate [Iron (ferrous sulfate)] 325 mg (65 mg iron) Tablet
325 mg PO USEASDIRECTD
Rx Instructions:
2x per week
Vyndaqel 20 mg Capsule
80 mg PO NOON
Amvuttra 25 mg/0.5 mL Syringe
0.5 ml SC [id number]
Rx Instructions:
Next dose: 08/2024
furosemide [Lasix] 20 mg Tablet
20 mg PO DAILY
vitamin A 2,400 mcg Capsule
2,400 mcg PO DAILY
diphenoxylate-atropine 2.5-0.025 mg Tablet
1 tab PO Q6 PRN (Reason: diarrhea)
vitamin E (dl, acetate) 180 mg (400 unit) Capsule
180 mg PO DAILY
guaifenesin [Mucus Relief ER] 600 mg Tablet Extended Release 12hr
600 mg PO Q12
midodrine 5 mg tablet
5 mg PO QHS
Discharge Orders:
Discharge Patient (As Directed); Ordered 08/25/24
Ordered By: Tacho Vences
Discharge Date and Time
Discharge Date/Time: 08/25/24 12:35
Print Language: URUGUAYAN
[2024-08-25 23:26] LABS: Calprotectin, Fecal 1020 ug/g (<=49)
--- NOTE | 2024-08-27 09:34 | W.HF.CON ---
Heart Failure
- LV Function
Left ventricular function study result: LV Ejection fraction >/= 50%
Ejection Fraction Percentage: 65-70
- ARNI
Patient already on ARNI: No
Heart Failure ARNI Not Indicated: LV Ejection Fraction >/= 40%
- ACEI/ARB
Patient already on ACEI/ARB: No
Heart Failure ACEI/ARB Not Indicated: LV Ejection Fraction > 40%
- Beta Angy
Patient already on Evidence Based Beta Angy: Yes
- Mineralocorticord Receptor Antagonist
Patient already on MRA: No
Heart Failure MRA Not Indicated: LV Ejection Fraction > 40%
- SGLT-2 Inhibitor
Patient already on SGLT-2 Inhibitor: No
Heart Failure SGLT-2 Inhibitor Not Indicated: LV Ejection Fraction >40%
- Afib Anticoagulation
Patient already on Anticoagulation for Afib: Yes
- NYHA CHF Classification
NYHA CHF Classification Level: Class III - Symptoms w/ min exertion, interferes w/ nml daily activity
- ACC/AHA Stage
ACC/AHA Stage: Stage C: Symptomatic Heart Failure
== END 2024-08-25 12:35 | disposition home health service (06) ==
LOC: 2 NORTH 03:43
PROVIDERS: Physician Assistant; Student in an Organized Health Care Education/Training Program; ADMITTING PHYSICIAN Internal Medicine; ATTENDING PHYSICIAN Internal Medicine; EMERGENCY PHYSICIAN Emergency Medicine; FAMILY PHYSICIAN Family Medicine; OTHER PHYSICIAN Internal Medicine Cardiovascular Disease; REFERRING PHYSICIAN Internal Medicine Cardiovascular Disease
DX: A04.72 Enterocolitis due to Clostridium difficile, not specified as recurrent (principal); R53.1 Weakness; I11.0 Hypertensive heart disease with heart failure; I50.32 Chronic diastolic (congestive) heart failure; G47.33 Obstructive sleep apnea (adult) (pediatric); Z79.01 Long term (current) use of anticoagulants; Z95.0 Presence of cardiac pacemaker; I25.10 Atherosclerotic heart disease of native coronary artery without angina pectoris; I48.21 Permanent atrial fibrillation; Z11.52 Encounter for screening for COVID-19; Z79.899 Other long term (current) drug therapy; I95.1 Orthostatic hypotension; I43 Cardiomyopathy in diseases classified elsewhere; D64.9 Anemia, unspecified; G62.9 Polyneuropathy, unspecified; K21.9 Gastro-esophageal reflux disease without esophagitis; R13.10 Dysphagia, unspecified; I42.5 Other restrictive cardiomyopathy
CPT/HCPCS: 71046; 80048; 80053; 81003; 81015; 82607; 82746; 83690; 83735; 83880; 83993; 84100; 84443; 84484; 85025; 85610; 85652; 87045; 87046; 87077; 87086; 87324; 87427; 87449; 87502; 87798; 87811; 89055; 93005; 93306; 96374; 97167; 97530; 99285; G0378

== ENCOUNTER 2024-09-10 06:05 | Day surgery (SDC) | payer OTHER, SELFPAY ==
[2024-09-10 08:10] VITALS: BMI 23.1
[2024-09-10 08:12] VITALS: BMI 23.1
[2024-09-10 08:13] VITALS: BP 105/67
[2024-09-10 09:15] VITALS: BP 121/73
[2024-09-10 09:30] VITALS: BP 119/79
[2024-09-10 09:44] VITALS: BP 115/71
== END 2024-09-10 10:05 | disposition home or self-care (01) ==
LOC: SDS 06:05
PROVIDERS: ATTENDING PHYSICIAN Internal Medicine Gastroenterology
DX: R13.10 Dysphagia, unspecified (principal); K22.10 Ulcer of esophagus without bleeding; Z53.8 Procedure and treatment not carried out for other reasons
CPT/HCPCS: 43235

== ENCOUNTER → 2024-09-24 07:18 | Outpatient (REF) | payer OTHER, SELFPAY | LOC: HWRAD 07:18 | PROVIDERS: ATTENDING PHYSICIAN Specialist; FAMILY PHYSICIAN Family Medicine | DX: L72.9 Follicular cyst of the skin and subcutaneous tissue, unspecified (principal) | CPT/HCPCS: 76870; 93976 ==

== ENCOUNTER 2025-02-20 15:19 | Emergency (ER) | payer OTHER, SELFPAY ==
[2025-02-20 15:23] VITALS: BP 82/49
[2025-02-20 15:39] VITALS: BP 109/69
[2025-02-20 15:43] VITALS: BMI 22.6
[2025-02-20 16:00] VITALS: BP 94/67
[2025-02-20 17:00] VITALS: BP 112/73
--- NOTE | 2025-02-20 17:10 | ED.GENMED ---
History of Present Illness
General
Chief Complaint: Weakness
Source: patient
Exam Limitations: none
Time Seen by Provider: 02/20/25 17:01
History of Present Illness
History of Present Illness:
See MDM
Past History
Past History
ED Past Medical History: Arrthythmia, CAD, GERD, HTN, Hypercholesterolemia, [place] (1999) and Other (pancreatitis)
ED Past Surgical History: Cardiac (angioplasty, one stent july 06 1999, cardiac cath 2012, pacemaker 2014) and Tonsilectomy
Patient has exhibited threatening behavior?: No
Social History
Tobacco: Non-smoker
Alcohol: None
Personal:
Living: with family
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
Family History
Family History: Negative Diabetes, Hypertension or CAD
Phy Exam
Physical Exam
Physical Exam:
See MDM
Course
Orders/Labs/Results
Orders:
Orders
02/20/25 15:57
EKG [Electrocardiogram (*1)] Urgent
Reason for Study: Chest Pain
02/20/25 15:58
EKG- Treatment ONCE
02/20/25 17:08
Tranexamic Acid 1,000 mg INH NOW STA
02/20/25 18:31
Tranexamic Acid 1000 mg/100 ml [Tranexamic Acid] 1,000 mg in 100 ml IV ONCE
02/20/25 19:09
Complete Blood Count/With Diff Urgent
Comprehensive Metabolic Panel Urgent
Abnormal Lab Results
02/20/25
19:09
RBC 3.51 L 10^6/uL
(4.70-6.10)
Hgb 11.1 L g/dL
(13.0-18.0)
Hct 34.2 L %
(39.0-52.0)
MCV 97.4 H fL
(80.0-94.0)
MCH 31.6 H pg
(27.0-31.0)
MCHC 32.5 L g/dL
(33.0-37.0)
Absolute Lymphs (auto) 0.9 L 10^3/uL
(1.2-3.4)
Lymphocytes % 18.3 L %
(20.5-51.1)
Monocytes % 9.7 H %
(1.7-9.3)
Sodium 134 L mmol/L
(135-145)
02/20/25 19:09
02/20/25 19:09
Vital Signs
Initial and Last Documented VS:
Initial Vital Signs
Temp Pulse Resp BP Pulse Ox
97.5 F 60 16 82/49 94
02/20/25 15:23 02/20/25 15:23 02/20/25 15:23 02/20/25 15:23 02/20/25 15:23
Last Documented Vital Signs
Temp Pulse Resp BP Pulse Ox
97.5 F 60 16 100/65 99
02/20/25 15:23 02/20/25 20:15 02/20/25 20:15 02/20/25 20:00 02/20/25 20:15
MDM/Problems Addressed
Differential Diagnosis Includes:
Note:
CHIEF COMPLAINT(S)
Bleeding after dental procedure.
HISTORY OF PRESENT ILLNESS
The patient is a 74-year-old male with a history of dental procedures presenting with bleeding from a dental extraction site. The patient reports recent dental work yesterday, including the removal of root tips, during which there was excessive
bleeding. This is not the first occurrence; five years prior, the patient experienced similar bleeding after dental work. Patient has been holding his Eliquis for the past few days. On exam, bleeding is oozing from underneath the implant site in
the front right lower incisor. The implant is not removable.
PHYSICAL EXAM
General: Alert, no acute distress.
Skin: Warm, dry.
Head: Normocephalic, atraumatic
Neck: Appears supple, trachea midline.
Eyes, Ears, Nose, Mouth, and Throat: Blood oozing under right lower incisor implant. No obvious cut or stitch noted
Cardiovascular: No signs of cyanosis
Respiratory: Respirations are non-labored.
Abdomen: Non-distended
Musculoskeletal: No deformities
Neurological: No focal neurological deficit observed.
Psychiatric: Cooperative, appropriate mood and affect.
PLAN
The plan included administering a medication called tranexamic acid (TXA) in the form of gauze to control the bleeding from the dental site.
DIFFERENTIAL DIAGNOSIS
The Differential Diagnosis includes, in no particular order and is not limited to:
- Local trauma from dental extraction
- Coagulopathy
- Excessive anticoagulation (although the patient is currently off Apixaban)
- Local infection
- Platelet dysfunction
- Systemic bleeding disorder
- Gingival bleeding
- Vascular abnormality
- Medication side effect
- Dental hardware complication
SUMMARY OF ENCOUNTER
The patient was seen in the emergency department due to ongoing bleeding from a dental site after recent extraction. The primary intervention was to address the bleeding with the application of tranexamic acid (TXA) on gauze. The patients history
did not indicate current use of Apixaban, but there is a known risk due to past experiences of bleeding following dental procedures.
EMERGENCY TREATMENTS ADMINISTERED
Tranexamic acid (TXA) on gauze applied to the dental site to control bleeding.
MEDICATION RECONCILIATION
No current use of Apixaban at this time per patients report. Administered tranexamic acid (TXA) to control bleeding.
MEDICAL DECISION MAKING
-Complexity of Data Reviewed: Chronic conditions affecting care: anticoagulation management history and recurrent bleeding episodes after dental procedures.
-Data:
Category 1
No specific labs or imaging ordered.
Category 2
No external notes or independent historian input involved.
Category 3
No discussions with other healthcare providers noted.
-Risk:
Prescription medication was prescribed and applied (tranexamic acid was used for bleeding control).
DIAGNOSIS
Bleeding from dental extraction site (ICD-10: K08.8)
EKG
My independent EKG interpretation is:
- Ventricular-paced rhythm
- Heart rate at 60 beats per minute
- Left axis deviation
- Wide QRS complex
- No ST segment elevation
SUMMARY OF ENCOUNTER
The patient presented to the emergency department with significant bleeding from a dental site where implants had been placed. The bleeding originated from beneath the implants, making direct access to the active bleeding site challenging. The
patient was previously treated with tranexamic acid (TXA) gauze, but due to persistent bleeding, an intravenous dose of TXA was administered, which effectively controlled the bleeding. Before discharge, the bleeding resolved completely.
DISPOSITION
The patient was discharged from the emergency department.
ASSESSMENT
Bleeding from dental extraction site, now resolved with treatment.
EMERGENCY TREATMENTS ADMINISTERED
Intravenous tranexamic acid (TXA) was administered to control the bleeding.
PLAN
Prescribe oral tablets of tranexamic acid (TXA) for use as needed in case of future bleeding episodes.
PATIENT EDUCATION AND COUNSELING
The patient was advised on the use of oral tranexamic acid tablets if bleeding recurs in the future and to seek further medical attention if needed.
FOLLOW-UP INSTRUCTIONS
The patient should follow up with their dentist or oral surgeon for further evaluation and management as needed.
MEDICATION RECONCILIATION
Tranexamic acid (TXA) was administered intravenously in the emergency department. A prescription for oral tranexamic acid was provided for use if needed in the future for bleeding episodes.
MEDICAL DECISION MAKING
-Complexity of Data Reviewed: Chronic conditions affecting care include anticoagulation management history and recurrent bleeding episodes after dental procedures. Differential diagnoses considered: local trauma from dental extraction, coagulopathy,
excessive anticoagulation, local infection, platelet dysfunction, systemic bleeding disorder, gingival bleeding, vascular abnormality, medication side effect, dental hardware complication.
-Data:
Category 1
No specific labs or imaging ordered.
Category 2
My independent interpretation of the EKG is a ventricular-paced rhythm, heart rate at 60 beats per minute, left axis deviation, wide QRS complex, and no ST segment elevation.
Category 3
No discussions with other healthcare providers noted.
-Risk:
Prescription medication was prescribed with tranexamic acid administered for bleeding control.
DIAGNOSIS
Bleeding from dental extraction site (ICD-10: K08.8)
*Pulse Oximetry
SaO2: 98
Oxygen Mode of Delivery: Room air
Patient hypoxic: no
*Critical Care Note
Total Time (30-74mins, 75-104mins- exclusive of procedures): Not Applicable
ED Attending Note
-
Portions of this chart may have been created with voice recognition software.� Occasional wrong word or��sound alike� substitutions may have occurred due to the inherent limitations of voice recognition software.
Discharge Plan
Departure
Patient Disposition: Home (Routine Discharge)
Date of Disposition: 02/20/25
Time of Disposition: 21:48
Patient with high blood pressure during this ER visit?: No
Discharge Problem:
Surgical wound hemorrhage after dental procedure
Prescriptions:
New
tranexamic acid 650 mg tablet
650 mg PO Q12H Qty: 6 0RF
No Action
Eliquis 5 MG tablet
5 mg PO BID
ferrous sulfate [Iron (ferrous sulfate)] 325 mg (65 mg iron) Tablet
325 mg PO USEASDIRECTD
Rx Instructions:
2x per week
Vyndaqel 20 mg Capsule
80 mg PO NOON
Amvuttra 25 mg/0.5 mL Syringe
0.5 ml SC [id number]
Rx Instructions:
Next dose: 08/2024
furosemide [Lasix] 20 mg Tablet
20 mg PO DAILY
vitamin A 2,400 mcg Capsule
2,400 mcg PO DAILY
diphenoxylate-atropine 2.5-0.025 mg Tablet
1 tab PO Q6 PRN (Reason: diarrhea)
vitamin E (dl, acetate) 180 mg (400 unit) Capsule
180 mg PO DAILY
guaifenesin [Mucus Relief ER] 600 mg Tablet Extended Release 12hr
600 mg PO Q12
midodrine 5 mg tablet
5 mg PO QHS
Referrals:
NONE,* [Family Provider, Internal Medicine]
Activity Restrictions/Additional Instructions:
Please return for any worsening symptoms.
You may return at any time if you have further concerns.
Please follow up with your dentist at the first available appointment, preferably this week.
Please start taking the prescription if the bleeding returns.
Thank you for choosing [facility].
Interventions
Interventions:
*Risk Screen - Suicide Last Done: 02/20/25 15:58
*General Assessment Last Done: 02/20/25 15:58
*Neglect/Abuse Screening Last Done: 02/20/25 20:22
*ED- Fall Risk Assessment Last Done: 02/20/25 15:58
*ED COVID-19 Vaccine History Last Done: 02/20/25 20:22
*ED Influenza Vaccine History Last Done: 02/20/25 20:22
ED- Cardiac Assessment Last Done: 02/20/25 20:22
ED- Neurological Assessment Last Done: 02/20/25 20:22
ED- Pulmonary Assessment Last Done: 02/20/25 20:22
Discharge Date and Time
Print Language: CHILEAN
[2025-02-20 19:09] VITALS: BP 95/65
[2025-02-20] MEDS: TRANEXAMIC ACID 100 IV (19:12)
[2025-02-20 19:26] LABS: Hematocrit 34.2 % (39.0-52.0); Hemoglobin 11.1 g/dL (13.0-18.0); Mean Corp Hgb Conc. 32.5 g/dL (33.0-37.0); Mean Corpuscular Volume 97.4 fL (80.0-94.0); Nucleated Red Blood Cells % 0 % (-); Platelet Count 153 10^3/uL (130-400); Red Cell Dist. Width 14.0 % (11.5-14.5)
[2025-02-20 19:35] LABS: ALT (SGPT) 22 U/L (0-50); AST (SGOT) 28 U/L (17-59); Albumin 3.6 g/dl (3.5-5.0); Alkaline Phosphatase 65 U/L (38-126); Blood Urea Nitrogen 16 mg/dl (9-20); Calcium 9.2 mg/dl (8.4-10.2); Carbon Dioxide 30 mmol/L (22-30); Chloride 103 mmol/L (98-107); Estimated Creatinine Clearance 73 ml/min; Glucose 86 mg/dl (70-99); Potassium 4.0 mmol/L (3.5-5.1); Sodium 134 mmol/L (135-145); Total Protein 6.3 g/dl (6.3-8.2); eGFR > 60.00
[2025-02-20 20:00] VITALS: BP 100/65
== END 2025-02-20 22:05 | disposition home or self-care (01) ==
LOC: EMR 15:19
PROVIDERS: EMERGENCY PHYSICIAN Student in an Organized Health Care Education/Training Program
DX: M96.831 Postprocedural hemorrhage of a musculoskeletal structure following other procedure (principal); R53.1 Weakness; Y83.8 Other surgical procedures as the cause of abnormal reaction of the patient, or of later complication, without mention of misadventure at the time of the procedure; I25.10 Atherosclerotic heart disease of native coronary artery without angina pectoris; I10 Essential (primary) hypertension; E78.00 Pure hypercholesterolemia, unspecified; K21.9 Gastro-esophageal reflux disease without esophagitis; I25.2 Old myocardial infarction; Z79.01 Long term (current) use of anticoagulants; Z95.5 Presence of coronary angioplasty implant and graft; Z95.0 Presence of cardiac pacemaker
CPT/HCPCS: 99284; 96374; 80053; 85025; 93005

== ENCOUNTER 2025-04-19 06:17 | Day surgery (SDC) | payer OTHER, SELFPAY ==
[2025-04-19] VITALS (10 sets, daily range): BP systolic 101–155; BP diastolic 55–86; BMI 22.6
[2025-04-19] MEDS: TYLENOL 1000 MG PO (10:22)
[2025-04-19] MEDS: HEPARIN 5000 UNITS SC (10:22)
[2025-04-19] MEDS: NORMOSOL-R/PLASMALYTE-A 1000 IV (10:29)
--- NOTE | 2025-04-19 13:01 | W.IMMPOSTOP ---
Surgical Immed Post Op Note
-
Primary Surgeon: Lien
Assisting: Emigdio JASON
Pre-op Diagnosis: Bilateral inguinal hernias
Post-op Diagnosis: Same
Procedure Performed: Robot assisted laparoscopic repair bilateral inguinal hernias
Anesthesia Type: GETA
Specimen / Cultures: None
Estimated Blood Loss: 10cc
Complications: None immediate
Operative Findings: Bilateral indirect defects, very large cord lipoma on the left. B/L XL MID 3D Max
--- NOTE | 2025-04-19 13:04 | OR.RPT ---
Operative Report
Operative Report
Primary Surgeon: Lien
Assisting: Emigdio JASON
Pre-op Diagnosis: Bilateral inguinal hernias
Post-op Diagnosis: Same
Procedure Performed: Robot assisted laparoscopic repair bilateral inguinal hernias
Anesthesia Type: GETA
Specimen / Cultures: None
Estimated Blood Loss: 10cc
Complications: None immediate
Operative Findings: Bilateral indirect defects, very large cord lipoma on the left. B/L XL MID 3D Max
Date of Surgery: 04/19/25
Indications: This 75M developed a symptomatic left inguinal hernia. On exam a right inguinal hernia was identified. He asked that we repair both sides today. Robot assisted laparoscopic repair of bilateral inguinal hernias was elected.
Description of procedure:� The patient was taken to the operating room and positioned into supine position. The patient�s abdomen was prepped and draped in standard sterile fashion. A time-out was completed verifying correct patient, procedure,
site, positioning, and implants and special equipment prior to beginning this procedure.
A stab incision was made in the left upper quadrant, a Veress needle was inserted and proper position was confirmed by aspiration and saline drop test. Following this, pneumoperitoneum was created with insufflation of carbon dioxide to 12 mmHg. Then
a 8mm robotic trocar was inserted above and to the left of the umbilicus. A laparoscope was inserted and the area of initial trocar entry and Veress needle placement were both inspected and no injuries were found. Two 8mm trocars were then placed
lateral to the rectus sheath under direct visualization.
Both inguinal regions were inspected and the median umbilical ligament, medial umbilical ligament, and lateral umbilical fold were identified. Attention was turned to the right groin. The peritoneum was incised transversely above the defect and a
flap was developed in the caudad direction. Brent�s ligament was identified ultimately dissected to its junction with the iliac vein and the space of Retzius was developed bluntly. The dissection was continued inferiorly to the iliopubic tract,
with care taken to avoid injury to the femoral branch of the genitofemoral nerve and the lateral femoral cutaneous nerve. The cord structures were parietalized.
The direct space was inspected and a hernia defect was not identified. The femoral space was inspected and a defect was not identified. The indirect space was inspected and a defect was identified and reduced by gentle traction. The canal was
inspected and no cord lipoma was identified.
Attention was turned to the left groin and the above process repeated. A large indirect defect was reduced. A very large cord lipoma was identified and reduced.
Extra large right and left MID 3D max mesh was passed through a trocar. The mesh was placed into the preperitoneal space and moved into position to lay flat and completely cover the direct, indirect, and femoral spaces with overlap at the midline.
The mesh was secured into place using 2-0 vicryl suture to Brent�s ligament medially and laterally. Care was taken to avoid the inferolateral triangles containing the iliac vessels and genital nerves. The peritoneal flap was closed over the mesh
and secured with 2-0 monocryl stratafix suture in similar positions of safety. A 14g angiocath was used to decompress the preperitoneal space revealing good seal and all mesh in good position without folding or curling.
After ensuring adequate hemostasis, the trocars were removed and the pneumoperitoneum allowed to escape. The trocar incisions were closed at the skin level using 4-0 monocryl and topical skin adhesive. Marcaine 0.5% with epinephrine was infiltrated
into the skin around the port incisions. All counts were correct and the patient tolerated the procedure well and was taken to the postanesthesia care unit in stable condition.
The assistance of Emigdio JASON was required due to the complexity of the procedure. During the procedure she assisted with retraction, visualization, and closure of the wound.
[2025-04-19] MEDS: ZOFRAN 4 MG IV (14:31)
== END 2025-04-19 16:48 | disposition home or self-care (01) ==
LOC: SDS 06:17
PROVIDERS: ATTENDING PHYSICIAN Surgery
DX: K40.20 Bilateral inguinal hernia, without obstruction or gangrene, not specified as recurrent (principal)
CPT/HCPCS: 49650